=== PATIENT | female | born 1960 | race Caucasian/White ===

== ENCOUNTER 2024-06-17 06:40 | Outpatient (OUT) | payer OTHER, SELFPAY ==
[2024-06-17 07:33] LABS: Basophils Absolute Auto 0.1 10^3/uL (0.0-0.1); Basophils Percent Auto 1.1 % (0.2-2.0); Eosinophils Absolute Auto 0.2 10^3/uL (0.0-0.7); Eosinophils Percent Auto 2.4 % (0.9-7.0); Hematocrit 43.4 % (36.0-48.0); Hemoglobin 14.7 g/dL (12.0-16.0); Immature Granulocytes Abs Auto 0.02 10^3/uL (0.00-0.03); Immature Granulocytes Pct Auto 0.2 % (0.0-0.5); Lymphocytes Absolute Auto 1.9 10^3/uL (1.2-3.8); Lymphocytes Percent Auto 20.4 % (20.5-60.0); Mean Corpuscular HGB Conc 33.9 g/dL (29.9-35.2); Mean Corpuscular Hemoglobin 34.9 pg (26.7-34.0); Mean Corpuscular Volume 103.1 fL (81.0-99.0); Mean Platelet Volume 10.1 fL (9.5-13.5); Monocytes Absolute Auto 0.6 10^3/uL (0.3-0.8); Monocytes Percent Auto 6.8 % (1.7-12.0); Neutrophils Absolute Auto 6.3 10^3/uL (1.4-6.5); Neutrophils Percent Auto 69.1 % (43.0-75.0); Platelet Count 352 10^3/uL (150-450); Red Blood Count 4.21 10^6/uL (4.20-5.40); Red Cell Distribution Width 12.7 % (11.0-15.0); White Blood Count 9.1 10^3/uL (4.0-11.0)
[2024-06-17 09:11] LABS: Alanine Aminotransferase 42 U/L (14-59); Albumin Globulin Ratio 0.9; Albumin Level 3.4 g/dL (3.4-5.0); Alkaline Phosphatase 227 U/L (46-116); Anion Gap 13.9; Aspartate Amino Transferase 29 U/L (15-37); BUN Creatinine Ratio 11.6; Bilirubin Total 0.7 mg/dL (0.2-1.0); Calcium 9.6 mg/dL (8.5-10.1); Carbon Dioxide 28.9 mmol/L (21.0-32.0); Chloride 103 mmol/L (98-107); Chol HDL Ratio 2.1; Cholesterol 214 mg/dL (<=200); Estimated GFR (African America >60 (>=60); Estimated GFR (Non-African Ame >60 (>=60); Globulin 3.7 g/dL; Glucose 103 mg/dL (74-106); HDL Cholesterol 101 mg/dL (40-60); Potassium 3.8 mmol/L (3.5-5.1); Sodium 142 mmol/L (136-145); Total Protein 7.1 g/dL (6.4-8.2); Triglycerides 101 mg/dL (<=150); VLDL CHOLESTEROL 20.2 mg/dL
[2024-06-17 09:25] LABS: Free T4 1.24 ng/dL (0.76-1.46)
[2024-06-17 11:38] LABS: Estimated Average Glucose 100 mg/dL; Glycohemoglobin A1C 5.1 % (4.5-6.2)
== END 2024-06-17 06:41 | disposition home or self-care (01) ==
LOC: LAB 06:52
PROVIDERS: PCP Nurse Practitioner Family; Visit Provider Nurse Practitioner Family
DX: Z00.00 Encounter for general adult medical examination without abnormal findings (principal); R53.83 Other fatigue; E03.9 Hypothyroidism, unspecified; Z12.11 Encounter for screening for malignant neoplasm of colon
CPT/HCPCS: 36415; 80053; 80061; 83036; 84439; 84443; 85025

== ENCOUNTER 2024-06-24 07:55 | Outpatient (REF) | payer OTHER, SELFPAY ==
--- OUTSIDE RECORDS SUMMARY | 2024-06-24 07:59 | XMS_ITS | CCD ---
Author Organization [facility] Care Team Providers Care Delicatessen Goods Stock Clerk Name Role Phone ARGENIS SORENSON Admitting Unavailable ARGENIS SORENSON Attending Unavailable MISC, DOCTOR Primary Care Unavailable ARGENIS SORENSON Consulting Unavailable Problems Active Problems Problem Classification Problem Date Documented Da te Episodic/Chronic Chronic obstructive pulmonary disease and bronchiectasis (1 source) Chronic obstructive pulmonary disease with (acute) exacerbation; Translations: [COPD WITH ACUTE EXACERBATION] Onset: 04-09-2018 Chronic Essential hypertension (1 source) Essential (primary) hypertension; Translations: [ESSENTIAL PRIMARY HYPERTENSION] Onset: 04-09-2018 Chronic Substance-related disorders (1 source) Nicotine dependence, cigarettes, uncomplicated; Translations: [NICOTINE DEPEND CIGARETTES UNCOMP] Onset: 04-09-2018 Chronic Past or Other Problems Problem Classification Problem Date Documented Da te Episodic/Chronic Allergic reactions (1 source) Allergy, unspecified, initial encounter; Translations: [ALLERGY UNSPECIFIED INITIAL ENCNTR] Onset: 04-09-2018 Episodic Other skin disorders (4 sources) Rash and other nonspecific skin eruption; Translations: [RASH OTH NONSPECIFIC SKIN ERUPTION] Onset: 03-14-2018 Episodic Results Test Name Value Interpretation Reference Range Facil ity MM screening mammo BI w/CADo n 05-08-2021 MM screening mammo BI w/CAD [facility] [place] [id number] Mammography Report Signed Patient: Marily Clemons MR#: [id number] : 1960 Acct:[id number] Age/Sex: 60 / F ADM Date: 05/08/21 Loc: [place] Room: Type: [facility] Attending Dr: Shannan Schwartz (Clinic) , [facility] Ordering Provider: Shannan Schwartz DO Date of Service: 05/08/21 MM/MM screening mammo BI w/CAD: SCREEN Copies to: Shannan Efren, DO CLINICAL DATA: Screening for malignancy. BILATERAL SCREENING MAMMOGRAMS - FULL FIELD DIGITAL WITH TOMOSYNTHESIS AND CAD Tomosynthesis craniocaudal and mediolateral oblique views of both breasts were obtained using low- dose digital technique. Comparison is made to prior studies from February 18, 2014 through January 22, 2019. This examination was reviewed with the aid of CAD. There are minor residual scattered fibroglandular densities. There is minor postoperative scarring in the retroareolar region on the right. Benign-appearing nodularity is again seen. There are no new suspicious masses, typically malignant calcifications or architectural distortion. There has been no significant interval change. MM/MM screening mammo BI w/CAD IMPRESSION: NO MAMMOGRAPHIC EVIDENCE OF MALIGNANCY. ROUTINE FOLLOW-UP IS RECOMMENDED IN ONE YEAR. RESULT CODE: 2 Benign Findings(s) DENSITY CODE: 1 (<25% glandular) FOLLOW UP: 1YR The false-negative rate of mammography is approximately 10-percent. Management of a palpable abnormality must be based on clinical grounds. Patient was entered into a reminder system with a target due date for the next mammogram. Impression dictated by: Christina Morales M.D.05/08/2021 1:21 PM Dictation Location: [facility] Transcribed By: [facility] 05/08/21 1321 Dictated By: Christina Morales MD 05/08/21 1317 Signed By: 05/08/21 1321 [facility] Encounters Encounter Date Encounter Type Care Provider Facility Start: 03-14-2018 End: 03-14-2018 Patient encounter procedure ARGENIS SORENSON Facility: Payers Date Payer Category Payer Unknown [id number] 1960 Unknown [id number] Summary Purpose Family History No Family History Records FoundNo Family History Records Found Advance Directives No Advanced Directives Records FoundNo Advanced Directives Records Found Additional Source Comments INFORMATION SOURCE (unrecogn ized section and content) DATE CREATED AUTHOR 02/11/2020 [facility] DATE CREATED AUTHOR '[facility] [place] 12/25/2021 [facility] FOR RECORDS PERTAINING TO PATIENTS WHO ARE OR HAVE BEEN ENROLLED IN A CHEMICAL DEPENDENCY/SUBSTANCEABUSE PROGRAM, SOME INFORMATION MAY BE OMITTED. This clinical summary was aggregated from multiple sources. Caution should be exercised in using it in the provision of clinical care. This summary normalizes information from multiple sources, and as a consequence, information in this document may materially change the coding, format and clinical context of patient data. In addition, data may be omitted in some cases. CLINICAL DECISIONS SHOULD BE BASED ON THE PRIMARY CLINICAL RECORDS. [facility]. provides no warranty or guarantee of the accuracy or completeness of information in this document.
[2024-06-24 09:23] LABS: Internal Control Within Normal Limits; Occult Blood Positive
== END 2024-06-24 07:56 | disposition home or self-care (01) ==
LOC: LAB 07:55
PROVIDERS: PCP Nurse Practitioner Family; Visit Provider Nurse Practitioner Family
DX: Z00.00 Encounter for general adult medical examination without abnormal findings (principal); R53.83 Other fatigue; E03.9 Hypothyroidism, unspecified; Z12.11 Encounter for screening for malignant neoplasm of colon
CPT/HCPCS: G0328

== ENCOUNTER 2025-06-23 09:51 | Outpatient (OUT) | payer MEDICARE, SELFPAY ==
--- OUTSIDE RECORDS SUMMARY | 2023-03-25 11:00 | XMS_ITS | Continuity of Care Document ---
Author Name [facility] Organization [facility] Care Team Providers Care Senior International Tax Manager Name Role Phone [facility] Unavailable Unavailable Problems Combined list of problems from Department of Defense and Veterans Affairs facilities. It does not include entries that were removed or entered in error. Problem Status Onset Date Problem Type Date of Resolution Comments Source Benign essential hypertension Active Condition [facility] Breast neoplasm screening status Active Condition March 03 Entered By: JEVON CONCEPCION Comment: 03/25/11: negJun 2012 Entered By: CHANDU DOVE Comment: mammogram 01/26/13 Bi-rad 1 negativeJul 2020 Entered By: WASHINGTON ALBARRAN Comment: 05/08/21 - BiRads 2 - repeat 1 year [facility] COPD - Chronic Obstructive Pulmonary Disease (SCT 49941596) Active Condition [facility] Hyperlipidemia (SNOMED CT 68469414) Active Condition [facility] Hypothyroid (SNOMED CT 69876856) Active Condition [facility] Nausea and vomiting Active Condition [facility] Osteoporosis (SNOMED CT 76672840) Active Condition [facility] Polyp of colon Active Condition Oct 042021 Entered By: WASHINGTON ALBARRAN Comment: 10/22/2022 - colonoscopy - tubular adenoma [facility] Routine gynecologic examination done Active Condition Apr 22 6 Entered By: WASHINGTON ALBARRAN Comment: april 2016 pap and HPV neg. rec rpt 5 yrs (2020) [facility] Smoker Active Condition [facility] Tobacco use Active Condition [facility] Vertigo Active Condition [facility] Vitamin D Deficiency (SCT 6171641) Active Condition [facility] Medications Combined list of outpatient medications from Department of Defense and Veterans Affairs facilities.Medications provided include 1) outpatient medications from the last 15 months, and 2) patient-reported medications. Medication Details Route Status Patient Instructions Prescription Expires Prescription Number Last Dispense Date Ordering Provider Order Date Order Qty Source ACETAMINOPH EN TAB TAKE BY MOUTH QID PRN ORAL ACTIVE MCCABE, LAMINE Azam 2010 [facility] ALENDRONATE 70MG TAB TAKE ONE TABLET BY MOUTH EVERY 4 WEEKS ORAL ACTIVE MELVA LUU Supriya 2010 [facility] CALCIUM CARBONATE 650MG TAB TAKE ONE TABLET BY MOUTH EVERY DAY ORAL ACTIVE JAXSON DOVE HEVER Nascimento 2012 [facility] Immunizations Combined list of available immunizations from the Department of Defense and Veterans Affairs facilities. Immunization Series Date Given Administered By Site Reaction Lot Number CVX Code Drug Slab Lifting Supervisor Status Comments Source COVID-19 ([facility]zes), MRNA, LNP-S, BIVALENT BOOSTER, PF, 30 MCG/0.3 ML DOSE 2021 MERLIN DODD LEFT DELTO ID [id number] 300 complet ed Booster for Series, [facility] [place], [facility] INFLUENZA, INJECTABLE, QUADRIVALENT, PRESERVATIVE FREE 2021 LAMINE THOMAS LEFT DELTO ID [id number] 150 complet ed [facility] [place] [facility] [place], [facility] COVID-19 ([facility]), MRNA, LNP-S, PF, 30 MCG/0.3 ML DOSE 3 2021 208 complet ed HISTORICA L INFORMATI ON - SOURCE UNSPECIFI ED [facility] PNEUMOCOCCAL CONJUGATE PCV20, POLYSACCHARID E [id number] CONJUGATE, ADJUVANT, PF 2021 216 complet ed [facility] ([facility]), MRNA, LNP-S, PF, 30 MCG/0.3 ML DOSE 3 2020 208 complet ed HISTORICA L INFORMATI ON - SOURCE UNSPECIFI ED, [facility] INFLUENZA, INJECTABLE, QUADRIVALENT, PRESERVATIVE FREE 2020 150 complet ed [facility] COVID-19 ([facility]), MRNA, LNP-S, PF, 30 MCG/0.3 ML DOSE 2 2020 208 complet ed [facility] COVID-19 (PFIZER), MRNA, LNP-S, PF, 30 MCG/0.3 ML DOSE 1 2020 208 complet ed [facility] INFLUENZA, UNSPECIFIED FORMULATION 2019 88 complet ed [facility] ZOSTER RECOMBINANT 2019 187 complet ed [facility] INFLUENZA, INJECTABLE, QUADRIVALENT, PRESERVATIVE FREE 2018 150 complet ed [facility] ZOSTER RECOMBINANT 2018 187 complet ed [facility] INFLUENZA, INJECTABLE, QUADRIVALENT, PRESERVATIVE FREE 2018 150 complet ed [facility] INFLUENZA, INJECTABLE, QUADRIVALENT, PRESERVATIVE FREE 2017 150 complet ed [facility] INFLUENZA, SEASONAL, INJECTABLE, PRESERVATIVE FREE 2015 140 complet ed [facility] INFLUENZA (HISTORICAL) 2014 88 complet ed [facility] PNEUMOCOCCAL POLYSACCHARID E PPV23 2014 33 complet ed [facility] PNEUMOCOCCAL, UNSPECIFIED FORMULATION 2014 109 complet ed [facility] INFLUENZA, SEASONAL, INJECTABLE, PRESERVATIVE FREE 2013 140 complet ed [facility] INFLUENZA, UNSPECIFIED FORMULATION 2013 88 complet ed [facility] DTAP, UNSPECIFIED FORMULATION 2013 107 complet ed [facility] INFLUENZA (HISTORICAL) 2012 88 complet ed [facility] INFLUENZA (HISTORICAL) 2010 88 complet ed [facility] INFLUENZA (HISTORICAL) 2010 88 complet ed PT GOT IT [facility] INFLUENZA, UNSPECIFIED FORMULATION 2010 88 complet ed [facility] Social History Combined list of available smoking, tobacco, and other social history from Department of Defense and Veterans Affairs facilities. Social History Type Response Date Comment Sourc e Tobacco smoking status NHIS VA-TOBACCO USER EVERY DAY 03/25/2023 [facility] History of tobacco use VA-TOBACCO USE 30 YEARS OR MORE 03/25/2023 [facility] History of tobacco use VA-TOBACCO USE WI 30 MIN OF WAKEUP 03/27/2022 [facility] History of tobacco use VA-TOBACCO USE WI 30 MIN OF WAKEUP 04/09/2021 [facility] History of tobacco use VA-TOBACCO USE WI 30 MIN OF WAKEUP 01/03/2021 [facility] History of tobacco use VA-TOBACCO USER EVERY DAY 9 [facility] History of tobacco use VA-TOBACCO USER EVERY DAY 8 [facility] History of tobacco use SMOKING MEDICATIO N INTEREST 01/01/2018 [facility] History of tobacco use CURRENT TOBACCO USER 02/12/2017 [facility] History of tobacco use CURRENT TOBACCO USER 12/01/2015 [facility] History of tobacco use CURRENT TOBACCO USER 09/02/2014 [facility] History of tobacco use CURRENT TOBACCO USER 11/02/2013 [facility] History of tobacco use CURRENT TOBACCO USER 01/15/2013 [facility] History of tobacco use CURRENT TOBACCO USER 10/16/2011 [facility] History of tobacco use CURRENT TOBACCO USER 01/10/2011 [facility]
--- OUTSIDE RECORDS SUMMARY | 2025-06-23 09:55 | XMS_ITS | Encounter Summary ---
Author Organization [facility] Address [address] [place] [address] Care Team Providers Care [place]imerock Tower Loader Name Role Phone Maris Nath MD Unavailable [phone] Encounter Details Date Type Department Care Team (Late st Contact Info) Description 12/21/2024 Abstract [facility] [address] [place] [phone] Garret Tarango DO [address] [place], [place] [id number] Social History Tobacco Use Types Packs/Day Years Used Date Smoking Tobacco: Never Assessed Comments Unknown Sex and Gender Information Value Date Recorded Sex Assigned at Not on file Legal Sex Female 6:51 PM EDT Gender Identity Not on file Sexual Orientation Not on file documented as of this encounter Plan of Treatment Not on file documented as of this encounter Visit Diagnoses Not on filedocumented in this encounter Care Teams [place]imer[place] Tower Loader Relationship Specialty Start Date End Date Maris Nath MD [address] [place] [address] Referring Physician Family Medicine 01/04/25 documented as of this encounter
--- OUTSIDE RECORDS SUMMARY | 2025-06-23 09:55 | XMS_ITS | Clinical Summary ---
Author Organization [facility] Address [address] [place] [address] Care Team Providers Care Electronics Detail Draftsperson Name Role Phone Maris Nath MD Unavailable [phone] Allergies No known active allergies Medications aspirin 81 MG EC tablet 1 (one) time each day at the same time 12/22/2024 Active atorvastatin (Lipitor) 80 MG tablet 12/21/2024 Active budesonide-formo terol (Symbicort) 160-4.5 MCG/ACT inhaler every 12 (twelve) hours Active hydroCHLOROthiaz raghav (HYDRODiuril) 25 MG tablet 12/21/2024 Active levalbuterol (Xopenex) 45 MCG/ACT inhaler every 6 (six) hours 11/30/2024 Active levothyroxine (Synthroid, Levoxyl) 200 MCG tablet 12/21/2024 Active Breztri Aerosphere 160-9-4.8 MCG/ACT aerosol INHALE 2 PUFFS TWICE DAILY FOR 30 DAYS 02/10/2025 Active Active Problems No known active problems Encounters Date Type Department Care Team Description 06/02/2025 10:00 AM EDT Office Visit [facility] [address] [facility] [place] [phone] Garret Tarango DO Left ankle pain, unspecified chronicity (Primary Dx) 06/02/2025 8:00 AM EDT Ancillary Procedure [facility] [address] [facility] [place] [phone] 06/02/2025 Travel 03/31/2025 9:45 AM EDT Office Visit [facility] [address] [place] [phone] Garret Tarango DO Left ankle pain, unspecified chronicity (Primary Dx) 03/31/2025 8:00 AM EDT Ancillary Procedure [facility] [address] [place] [address] 03/31/2025 Travel from Last 3 Months Family History Medical History Relation Name Comments Stroke Father Mental illness Mother Relation Name Status Comments Father Mother Social History Tobacco Use Types Packs/Day Years Used Date Smoking Tobacco: Every Day Cigarettes Smokeless Tobacco: Never Tobacco Cessation:Ready to Q uit: Not Asked; Counseling Given: Not Answered Alcohol Use Standard Drinks/Week Comments Not Currently 0 (1 standard drink = 0.6 oz pur e alcohol) Comments Unknown Sex and Gender Information Value Date Recorded Sex Assigned at Not on file Legal Sex Female 6:51 PM EDT Gender Identity Not on file Sexual Orientation Not on file Last Filed Vital Signs Vital Sign Reading Time Taken Comments Blood Pressure - - Pulse - - Temperature - - Respiratory Rate - - Oxygen Saturation - - Inhaled Oxygen Concentration - - Weight 72.6 kg (160 lb) 06/02/2025 9:50 AM EDT Height 160 cm (5' 3 ) 06/02/2025 9:50 AM EDT Body Mass Index 28.34 06/02/2025 9:50 AM EDT Plan of Treatment Health Maintenance Due Date Last Done Comments CT Colonography 1960 Colonoscopy 1960 Colorectal Cancer Screening 1960 FIT-DNA 1960 FIT 1960 FOBT 1960 Sigmoidoscopy 1960 Mammogram 1998 Influenza Vaccine (#1) 2025 4, 09/01/2023, 09/18/2022, Additional history exists Pneumococcal Vaccine: 65+ Years Completed 03/27/2022, 04/27/2015, 04/27/2015 Procedures Procedure Name Priority Date/Time Associated Diagnosis Comments XR ANKLE 3+ VIEWS LEFT Routine 06/02/2025 7:48 AM EDT Left ankle pain, unspecified chronicity XR ANKLE 3+ VIEWS LEFT Routine 03/31/2025 7:52 AM EDT Left ankle pain, unspecified chronicity from Last 3 Months Results * XR ankle 3+ views left (06/02/2025 7:48 AM EDT) Only the most recent of2 resultswithin the time period is included. Anatomical Region Laterality Modality Lower Extremities, Ankle Left Radiogr aphic Imaging Narrative 06/02/2025 8:32 PM EDT Imaging Result: Three views of the left ankle, AP/lateral/mortise, taken today and saved to the permanent medical record. - X-ray of the left ankle: No change in position and alignment of the fractures. The hardware is all intact. There is interval healing of both the medial malleolus and distal fibula fracture. Slight narrowing at lateral tibiotalar joint with asymmetry to the mortise. The syndesmosis is well aligned. Garret Tarango DO IMG XR PROCEDURES Final Result from Last 3 Months Insurance [address] [place] [address] [employer] Care Teams Electronics Detail Draftsperson Relationship Specialty Start Date End Date Maris Nath MD [facility] [place] [address] Referring Physician Family Medicine 01/04/25
--- OUTSIDE RECORDS SUMMARY | 2025-06-23 10:15 | XMS_ITS | CCD ---
Author Organization [facility] Care Team Providers Care 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 Name Role Phone ARGENIS SORENSON Admitting Unavailable ARGENIS SORENSON Attending Unavailable [facility], DOCTOR Primary Care Unavailable ARGENIS SORENSON Consulting Unavailable Dar Bailey Attending Unavailable Tony Alva Attending Tony Fermin Admitting Unavailkerry e Noel Primary Care Provider MARIS Webber Primary Care Physician Tony Alva Admitting Tony Fermin Attending Maris Webber MD GARRET TARANGO Attending Unavailable GARRET TARANGO Referring Unavailable CARMENCITA, GARRET Davis Referring Unavailable CARMENCITA, GARRET Davis Referring Unavailable CARMENCITA, GARRET Davis Attending Unavailable CARMENCITA, GARRET Davis Referring Unavailable CARMENCITA, GARRET Davis Attending Unavailable CARMENCITA, GARRET Davis Referring Unavailable CARMENCITA, GARRET Davis Attending Unavailable CARMENCITA, GARRET Davis Referring Unavailable CARMENCITA, GARRET Davis Referring Unavailable GARRET TARANGO Attending Unavailable Allergies Allergy Classification Reported Allergen(s) Allergy Type Date of Onset Reaction(s) Facility (4 sources) No Known Medication Allergies; Translations: [No Known Medication Allergies] Propensity to adverse reactions (disorder) [facility] Medications Current Medications Medication Drug Class(es) Dates Sig (Normalized) Sig (Original) Albuterol (Eqv-Proventil HFA) 90 mcg/inh inhalation aerosol (1 source) Start: 5 Albuterol (Eqv-Proventil HFA) 90 mcg/inh inhalation aerosol = 2 inh, Inhalation, q6hr, PRN Wheezing Start Date: 12/21/24 Status: Ordered aspirin 81 mg delayed release oral tablet (9 sources) Platelet Aggregation Inhibitor, Nonsteroidal Anti-inflammator y Drug Start: 5 End: 5 aspirin 81 MG EC tablet 1 (one) time each day at the same time 12/22/2024 Active atorvastatin 80 mg oral tablet (9 sources) HMG-CoA Reductase Inhibitor Start: 5 atorvastatin (Lipitor) 80 MG tablet 12/21/2024 Active 60 actuat budesonide 0.16 mg/actuat / formoterol fumarate 0.0045 mg/actuat metered dose inhaler (8 sources) Corticosteroid, beta2-Adrenergic Agonist budesonide-formotero l (Symbicort) 160-4.5 MCG/ACT inhaler every 12 (twelve) hours Active 120 actuat budesonide 0.16 mg/actuat / formoterol fumarate 0.0048 mg/actuat / glycopyrrolate 0.009 mg/actuat metered dose inhaler (6 sources) Corticosteroid, beta2-Adrenergic Agonist Start: 5 take 2 puff(s) by inhalation twice daily Breztri Aerosphere 160-9-4.8 MCG/ACT aerosol INHALE 2 PUFFS TWICE DAILY FOR 30 DAYS 02/10/2025 Active docusate sodium 100 mg oral capsule (1 source) Start: 5 End: 5 take 1 capsule by mouth twice daily as needed for constipation Colace 100 mg Cap 100 mg = 1 cap(s), Oral, BID, PRN as needed for constipation, X 14 day(s), # 28 cap(s), Refills(s) 0, Pharmacy: [facility]/pharmacy #[id number], 160, cm, 12/21/24 9:39:00 EST, Height/Length Dosing, 77.4, kg, 12/21/24 9:39:00 EST, Weight Dosing Start Date: 12/22/24 Stop Date: 01/05/25 Status: Ordered hydroCHLOROthiazide 25 mg oral tablet (9 sources) Thiazide Diuretic Start: 5 hydroCHLOROthiazide (HYDRODiuril) 25 MG tablet 12/21/2024 Active 200 actuat levalbuterol 0.045 mg/actuat metered dose inhaler (8 sources) beta2-Adrenergic Agonist Start: 5 levalbuterol (Xopenex) 45 MCG/ACT inhaler every 6 (six) hours 11/30/2024 Active levalbuterol CFC free 45 mcg/inh Inh Aer w/adapter (1 source) Start: 5 levalbuterol CFC free 45 mcg/inh Inh Aer w/adapter 2 inh, Inhalation, q6hr Wheezing, INHALE 2 PUFFS BY MOUTH EVERY 6 HOURS NEEDED Start Date: 12/21/24 Status: Ordered oxyCODONE hydrochloride 5 mg oral tablet (1 source) Opioid Agonist Start: End: take 1 tablet by mouth every six hours as needed for pain oxyCODONE 5 mg Tab 5 mg = 1 tab(s), Oral, q6hr, PRN as needed for pain, X 5 day(s), # 20 tab(s), Refills(s) 0, Pharmacy: [facility]/pharmacy #[id number], 160, cm, 12/21/24 9:39:00 EST, Height/Length Dosing, 77.4, kg, 12/21/24 9:39:00 EST, Weight Dosing Start Date: 12/22/24 Stop Date: 12/27/24 Status: Ordered sennosides, fci 8.6 mg oral tablet (1 source) Start: take 1 tablet by mouth once daily at bedtime senna 8.6 mg Tab 8.6 mg = 1 tab(s), Oral, Once a day (at bedtime), # 20 tab(s), Refills(s) 0, Pharmacy: [facility]/pharmacy #[id number], 160, cm, 12/21/24 9:39:00 EST, Height/Length Dosing, 77.4, kg, 12/21/24 9:39:00 EST, Weight Dosing Start Date: 12/22/24 Status: Ordered Completed/Discontinued Medications Medication Drug Class(es) Dates Sig (Normalized) Sig (Original) [id number] 200 actuat albuterol 0.09 mg/actuat metered dose inhaler (4 sources) beta2-Adrenergic Agonist End: 02-28-2025 take 2 puff(s) by inhalation four times daily as needed albuterol HFA 90 mcg/act inhaler INHALE 2 PUFFS NEEDED 4 TIMES DAILY for 25 days 02/28/2025 Discontinued (Therapy completed) levothyroxine sodium 0.2 mg oral tablet (9 sources) l-Thyroxine Start: 12-21-2024 take 1 tablet by mouth once daily in the morning levothyroxine 200 mcg (0.2 mg) Tab 200 mcg = 1 tab(s), Oral, Daily, TAKE 1 TABLET BY MOUTH EVERY DAY IN THE MORNING ON EMPTY STOMACH FOR 90 DAYS Start Date: 12/21/24 Status: Ordered Start: 12-21-2024 levothyroxine (Synthroid, Levoxyl) 200 MCG tablet 12/21/2024 Active Problems Active Problems Problem Classification Problem Date Documented Date Episodic/Chronic Chronic obstructive pulmonary disease and bronchiectasis (1 source) Chronic obstructive pulmonary disease with (acute) exacerbation; Translations: [COPD WITH ACUTE EXACERBATION] Onset: 8 Chronic Disorders of lipid metabolism (1 source) Hypercholesterolemia 12-21-2024 Chronic Essential hypertension (2 sources) Essential (primary) hypertension; Translations: [Hypertensive disorder] Onset: 8 12-21-2024 Chronic Fracture of lower limb (1 source) Closed fracture of lower leg; Translations: [Other fracture of unspecified lower leg, initial encounter for closed fracture] Onset: 5 Episodic Other non-traumatic joint disorders (8 sources) Ankle pain; Translations: [Pain in left ankle and joints of left foot] 01-31-2025 Episodic Residual codes; unclassified (1 source) Tobacco user 12-21-2024 Episodic Substance-related disorders (2 sources) Nicotine dependence, cigarettes, uncomplicated; Translations: [Smoker] Onset: 8 12-21-2024 Chronic Comment on above: Added secondary to d ocumentation in Social History. Thyroid disorders (1 source) Hypothyroidism 12-21-2024 Chronic Past or Other Problems Problem Classification Problem Date Documented Da te Episodic/Chronic Allergic reactions (1 source) Allergy, unspecified, initial encounter; Translations: [ALLERGY UNSPECIFIED INITIAL ENCNTR] Onset: 04-09-2018 Episodic Other skin disorders (4 sources) Rash and other nonspecific skin eruption; Translations: [RASH OTH NONSPECIFIC SKIN ERUPTION] Onset: 03-14-2018 Episodic Results Test Name Value Interpretation Reference Range Facility XR Ankle - left 3 [facility] Result: Three views of the left [...] the mortise. The syndesmosis is well aligned. [facility] Radiology Study observation (narrative) [facility] XR Ankle - left 3 [facility] Result: Three views of the left ankle, AP/lateral/mortise, taken today and saved to the permanent medical record. Increased callus at fibula fracture. Fracture line at medial malleolus still present. Syndesmosis aligned, narrowing at lateral tibiotalar joint [facility] Radiology Study observation (narrative) [facility] XR Ankle - left 3 [facility] Result: Three views of the left ankle, AP/lateral/mortise, taken today and saved to the permanent medical record. Fractures unchanged in position. Hardware intact. Mortise and syndesmosis well aligned. [facility] Radiology Study observation (narrative) [facility] XR Ankle - left 3 [facility] Result: Three views of the left ankle, AP/lateral/mortise, taken today and saved to the permanent medical record. Hardware intact. Mortise and syndesmosis in good alignment. Fractures healing appropriately. [facility] Radiology Study observation (narrative) [facility] EMS Documentationon 12-23-19 EMS Documentation Report Please click on link to see report Normal [facility] Comment on above: Result Comment: Miss ing Attachment - attachment exceeds size limitation [id number] Can be viewed in source system Main OR Intraoperative Recor don 12-23-2024 Main OR Intraoperative Record Main OR Intraoperative Record IntraOp Document Type FT Summary Primary Physician: Garret Tarango DO Finalized Date/Time: 12/23/24 07:38:51 Pt. Name: MARILY CLEMONS/Sex: 1960 Female Med Rec #: [id number] Physician: Nida RODRIGUEZ, Tony Bragg Financial #: [id number] Pt. Type: O Room/Bed: [place] [address] Admit/Disch: 12/21/24 09:32:35 - 12/22/24 17:10:00 Institution: Case Times FT Entry 1 Patient Times In Room 12/21/24 18:31:00 Out Room 12/21/24 20:39:00 Procedure Times Start 12/21/24 18:57:00 Stop 12/21/24 20:35:00 Anesthesia Times Start 12/21/24 18:31:00 Stop 12/21/24 20:39:00 Last Modified By: Reyes Parker 12/21/24 20:45:13 General Comments: 12/23/24 Chart opened to review and send charges LRoth CSFA Case Attendance FT Entry 1 Entry 2 Entry 3 Case Attendee Garret Tarango DO, Jr., DO, Renay Garces CST Role Performed Surgeon - Primary Anesthesiologist of GAS STATION SERVICE ATTENDANT/SA Record Time In 12/21/24 18:38:00 12/21/24 18:31:00 12/21/24 18:31:00 Time Out 12/21/24 20:39:00 12/21/24 20:39:00 12/21/24 20:39:00 Procedure ANKLE FRACTURE ANKLE FRACTURE ANKLE FRACTURE ORIF(Left) ORIF(Left) ORIF(Left) Comments Last Modified By: Reyes Parker Terry T Sweene, Terry T 12/21/24 20:45:15 12/21/24 20:45:15 12/21/24 20:45:15 Entry 4 Entry 5 Entry 6 Case Attendee Reyes Parker Kendall R Kolb, Madelyn K Role Performed Online Advertising Analyst - Primary Scrub - Primary Lokie Engineer Time In 12/21/24 18:31:00 12/21/24 18:31:00 12/21/24 18:39:00 Time Out 12/21/24 20:39:00 12/21/24 20:39:00 12/21/24 20:39:00 Procedure ANKLE FRACTURE ANKLE FRACTURE ANKLE FRACTURE ORIF(Left) ORIF(Left) ORIF(Left) Comments Last Modified By: Reyes Parker Terry T Sweene, Terry T 12/21/24 20:45:15 12/21/24 20:45:15 12/21/24 20:45:15 General Comments: SANDY CRAWLEY - ARTHREX REP HERE FOR CASE. Jovan PARKER RN. ENID MANCIA - ARTHREX REP HERE FOR CASE. Jovan PARKER RN. Perioperative Protocols FT Pre-Care Text: Implements protective measures prior to operative or invasive procedure, confirms identity before the operative or invasive procedure, verifies operative procedure, surgical site, and laterality Entry 1 Procedure(s) ANKLE FRACTURE Patient Identity Birthday, ID Band ORIF(Left) Verified (select at Check, Patient least 2): Participation Consents / H and P Anesthesia Consent, Operative Site Present Verified H&P, Surgery/Procedure Marking Verified Consent Surgical Site Yes Laterality Verified Yes Verified Procedure Verified Yes Correct Patient Yes Position Verified Availability Equipment, Implant, Prep Dry Yes Verified (If Medication, X-ray Applicable) PreOp Antibiotic Yes Time Out Garret Tarango DO, Given Participants Arnie Ortez DO, Clinton Pike CST, Renay Umana, Reyes Parker, Jorge L Giang R, Thalia Martinez Time Out Complete 12/21/24 18:57:00 Outcomes Met? Yes Last Modified By: Reyes Parker 12/21/24 19:16:57 Post-Care Text: The patient is free from signs and symptoms of injury caused by extraneous objects Allergy Information FT Pre-Care Text: Verifies allergies Entry 1 Allergies Reviewed? Yes Allergies Reviewed Self/Patient With Outcomes Met? Yes Last Modified By: Reyes Parker 12/21/24 19:17:05 Post-Care Text: The patient received appropriate medication(s) safely administered during the perioperative period Surgical Procedures FT Entry 1 Procedure Description Procedure ANKLE FRACTURE ORIF Modifiers Left Surgeon Description OPEN REDUCTION INTERNAL FIXATION LEFT ANKLE Primary Procedure Yes Primary Surgeon Garret Tarango DO Start 12/21/24 18:57:00 Stop 12/21/24 20:35:00 Anesthesia Type General Surgical Service Orthopedics Wound Class 1 - Clean Last Modified By: Reyes Parker 12/21/24 20:46:40 General Case Data FT Pre-Care Text: Classifies surgical wound, implements aseptic technique, initiates traffic control Entry 1 Case Information OR OR 4 FT Case Level Level 4 Wound Class 1 - Clean Specialty Orthopedics ASA Class 2 Preop Diagnosis LEFT ANKLE FRACTURE Postop Same As Preop Yes Postop Diagnosis LEFT ANKLE FRACTURE Outcomes Met? Yes Last Modified By: Reyes Parker 12/21/24 19:17:21 Post-Care Text: The patient is free from signs and symptoms of infection Skin Assessment (Pre Procedure) FT Pre-Care Text: Implements protective measures to prevent skin/ tissue injury due to thermal or mechanical sources Evaluates for signs and symptoms of physical injury to skin and tissue Entry 1 Skin Integrity Intact, [place], Warm, & Skin Abnormality Yes Dry Abnormality Location LEFT ANKLE Abnormality Type REDDENED ARE MEDIAL ASPECT OF LEFT ANKLE APPROXIMATELY 1 INCH DIAMETER Outcomes Met? Yes Last Modified By: Reyes Parker 12/21/24 19:18:11 Post-Care Text: The patient is free from signs and symptoms of injury caused by extraneous objects Patient Posit (more content not included)... Normal [facility] 12-22-2024 Urea nitrogen [Mass/Vol] 16 mg/dL Normal 5-21 [facility] Comment on above: Performed By: #### 2 [id number] #### [facility] [address] [place] [address] CBC w/ Auto Diffon Basophils/100 WBC (Bld) 0.2 % Normal 0.0-2.0 [facility] Comment on above: Performed By: #### 2 [id number] #### [facility] [address] [place] [address] Basophils/Leukocytes Auto (Bld) [Pure # fraction] 0.0 E9/L Normal 0.0-0.2 [facility] Comment on above: Performed By: #### 2 [id number] #### [facility] [address] [place] [address] Eosinophils (Bld) [#/Vol] 0.0 E9/L Normal 0.0-0.5 [facility] Comment on above: Performed By: #### 2 [id number] #### [facility] [address] [place] [address] Eosinophils/100 WBC (Bld) 0.0 % Normal 0.0-8.0 [facility] Comment on above: Performed By: #### 2 [id number] #### [facility] [address] [place] [address] Erythrocyte distribution width (RBC) [Ratio] 13.4 % Normal 10.9-14.2 [facility] Comment on above: Performed By: #### 2 [id number] #### [facility] [address] [place] [address] Hematocrit (Bld) [Volume fraction] 37.4 % Normal 34.0-46.0 [facility] Comment on above: Performed By: #### 2 [id number] #### [facility] [address] [place] [address] Hemoglobin (Bld) [Mass/Vol] 12.8 g/dL Normal 12.0-16.0 [facility] Comment on above: Performed By: #### 2 [id number] #### [facility] [address] [place] [address] Lymphocytes (Bld) [#/Vol] 1.3 E9/L Normal 1.0-4.0 [facility] Comment on above: Performed By: #### 2 [id number] #### [facility] [address] [place] [address] Lymphocytes/100 WBC (Bld) 13.1 % Low 14.0-50.0 [facility] Comment on above: Performed By: #### 2 [id number] #### [facility] [address] [place] [address] MCH (RBC) [Entitic mass] 36.3 pg High 27.0-34.0 [facility] Comment on above: Performed By: #### 2 [id number] #### [facility] [address] [place] [address] MCHC (RBC) [Mass/Vol] 34.3 g/dL Normal 31.4-36.0 [facility] Comment on above: Performed By: #### 2 [id number] #### [facility] [address] [place] [address] MCV (RBC) [Entitic vol] 105.8 fL High 80.0-100.0 [facility] Comment on above: Performed By: #### 2 [id number] #### [facility] [address] [place] [address] Monocytes (Bld) [#/Vol] 0.3 E9/L Normal 0.2-1.0 [facility] Comment on above: Performed By: #### 2 [id number] #### [facility] [address] [place] [address] Neutrophils (Bld) [#/Vol] 8.0 E9/L High 2.0-7.5 [facility] Comment on above: Performed By: #### 2 [id number] #### [facility] [address] [place] [address] Neutrophils/100 WBC (Bld) 83.2 % High 36.0-75.0 [facility] Comment on above: Performed By: #### 2 [id number] #### [facility] [address] [place] [address] Platelet 287.0 E9/L Normal 150.0-500.0 [facility] Comment on above: Performed By: #### 2 [id number] #### [facility] [address] [place] [address] Platelet mean volume (Bld) [Entitic vol] 8.5 fL Normal 6.4-10.8 [facility] Comment on above: Performed By: #### 2 [id number] #### [facility] [address] [place] [address] RBC (Bld) [#/Vol] 3.5 E12/L Low 4.3-5.9 [facility] Comment on above: Performed By: #### 2 [id number] #### [facility] [address] [place] [address] WBC corrected for nucl RBC Auto (Bld) [#/Vol] 9.7 E9/L Normal 4.0-11.0 [facility] Comment on above: Performed By: #### 2 [id number] #### [facility] [address] [place] [address] CHEMISTRYOrdered By: Lab ROP User on 12-22-2024 Glucose [Mass/Vol] 117 mg/dL High 55 - 99 mg/dL FT POC Subsection Comment on above: Result Comment: Marco Antonio wagner RN/ POC Device SN [id number] 1 Invalid Interpretation Code [facility] POC Subsection POC Username ALANIS MEZA Invalid Interpretation Code [facility] POC Subsection Sodium [Moles/Vol] [id number] mmol/L Invalid Interpretation Code [facility] POC Subsection Glucose [Mass/Vol] 117 mg/dL High 55 - 99 mg/dL [facility] POC Subsection Comment on above: Result Comment: Marco Antonio wagner RN/ POC Device SN [id number] 1 Invalid Interpretation Code [facility] POC Subsection POC Username ALANIS MEZA Invalid Interpretation Code [facility] POC Subsection Sodium [Moles/Vol] [id number] mmol/L Invalid Interpretation Code [facility] POC Subsection Glucose [Mass/Vol] 122 mg/dL High 55 - 99 mg/dL [facility] POC Subsection Comment on above: Result Comment: Marco Antonio wagnre RN/ POC Device SN [id number] 1 Invalid Interpretation Code [facility] POC Subsection POC Username ALANIS MEZA Invalid Interpretation Code [facility] POC Subsection Sodium [Moles/Vol] [id number] mmol/L Invalid Interpretation Code [facility] POC Subsection CHEMISTRYOrdered By: SYSTEM SYSTEM on 12-22-2024 Anion gap [Moles/Vol] 15 mmol/L Normal 6 - 16 mEq/L R emisol Chem Calcium [Mass/Vol] 8.2 mg/dL Low 8.9 - 11. 1 mg/dL Rem[facility] Chem Chloride [Moles/Vol] 104 mmol/L Normal 101 - 1 11 mmol/L [facility] Chem CO2 [Moles/Vol] 21 mmol/L Normal 21 - 31 mmol/L [facility] Chem Creatinine [Mass/Vol] 1.1 mg/dL Normal 0.5 - 1.3 mg/dL [facility] Chem eGFR 55 mL/min/1.73 m2 Low >=59mL/min /1 .73 m2 [facility] Chem Glucose [Mass/Vol] 114 mg/dL Normal 55 - 199 mg/dL [facility] Magnesium [Mass/Vol] 1.6 mg/dL Normal 1.3 - 2 .4 mg/dL [facility] Phosphate [Mass/Vol] 3.5 mg/dL Normal 1.9 - 4 .6 mg/dL [facility] Potassium [Moles/Vol] 4.6 mmol/L Normal 3.5 - 5.3 mmol/L [facility] Sodium [Moles/Vol] 135 mmol/L Normal 135 - 145 mmol/L [facility] Urea nitrogen [Mass/Vol] 16 mg/dL Normal 5 - 21 mg/dL [facility] Chem COAGULATIONOrdered By: Shirlene Green on 12-22-2024 aPTT Coag (PPP) [Time] 29.5 s Normal 25.1 - 36.5 second(s) [facility] Comment on above: Interpretive Data: P eugenemeter 15 days - 4 weeks 1 - 5 months 6 - 11 months 1 - 5 years 6 - 10 years 11 - 17 years PTT Mean: 35.4 (27.6-45.6) Mean: 33.5 (24.8-40.7) Mean: 32.4 (25.1-40.7) Mean: 31.6 (24.0-39.2) Mean: 31.6 (26.9-38.7) Mean: 31.0 (24.6-38.4) Pediatric Reference ranges were obtained from a study by Jose R Polk et al. prepared from 1437 samples obtained at 7 different centers using the same coagulation reagent and instrumentation as [facility]. Currently there are no coagulation studies available worldwide for children to 14 days, and no normal ranges. Heparin therapeutic range (represented by Anti-Factor Xa activity of 0.2 - 0.4 U/mL) corresponds to PTT of 56.6 - 109.0 sec. INR Coag (PPP) [Relative time] 0.95 {INR} Invalid Interpretation Code [facility] Comment on above: Interpretive Data: I NR results are specifically intended to assess patients stabilized on long-term Anticoagulation therapy suggested INR s Less Intensive Anticoagulation 2.0 3.0 Conventional Range 3.0 4.5 PT Coag (PPP) [Time] 10.6 s Normal 9.4 - 1 2.5 second(s) [facility] Comment on above: Interpretive Data: 1 5 days - 4 weeks 1 - 5 months 6 -11 months 1 5 years 6 10 years 11 -17 years Mean: 11.2 (9.5 12.6) Mean: 11.0 (9.7 12.8) Mean: 11.0 (9.8 13.0) Mean: 11.3 (9.9 13.4) Mean: 11.7 (10.0 14.6) Mean: 11.8 (10.0 - 14.1) Pediatric Reference ranges were obtained from a study by parmjit Downing al. prepared from 1437 samples obtained at 7 different centers using the same coagulation reagent and instrumentation as [facility]. Currently there are no coagulation studies available worldwide for children to 14 days, and no normal ranges. Calciumon 12-22-2024 Calcium [Mass/Vol] 8.2 mg/dL Low 8.9-11.1 [facility] Comment on above: Performed By: #### 2 [id number] #### [facility] [address] [place] [address] Capillary Glucose POCon 12-04 Glucose [Mass/Vol] 117 mg/dL High 55-99 [facility] Comment on above: Result Comment: Marco Antonio TEE Performed By: #### 2 [id number] #### [facility] [address] [place] [address] Glucose [Mass/Vol] 117 mg/dL High 55-99 [facility] Comment on above: Result Comment: Marco Antonio TEE Performed By: #### 2 [id number] #### [facility] [address] [place] [address] Glucose [Mass/Vol] 122 mg/dL High 55-99 [facility] Comment on above: Result Comment: Marco Antonio TEE Performed By: #### 2 [id number] #### [facility] [address] [place] [address] Creatinineon 12-22-2024 Creatinine [Mass/Vol] 1.1 mg/dL Normal 0.5-1.3 [facility] Comment on above: Performed By: #### 2 [id number] #### [facility] [address] [place] [address] Discharge Note-Nursingon Discharge Note-Nursing Discharge Note-Nursing MARILY CLEMONS :1960 Visit Date:12/21/2024 Inpatient Discharge Instructions Your Care Team Admitting Physician - Nida RODRIGUEZ, Tony Bragg Reason for Your Visit I fell on ice and I broke my foot Your Diagnosis Fracture dislocation of ankle Ankle injury - Major Ankle pain-swelling Fall Tests Performed CT Lower Extremity w/o Contrast Left XR Ankle 2 Views Left XR Ankle 3+ Views Left XR Chest Single View This Is Your Medications List albuterol (Albuterol (Eqv-Proventil HFA) 90 mcg/inh inhalation aerosol) aspirin (aspirin 81 mg Oral EC Tab) atorvastatin (atorvastatin 80 mg Tab) docusate (Colace 100 mg Cap) hydrochlorothiazide (hydrochlorothiazide 25 mg Tab) levalbuterol (levalbuterol CFC free 45 mcg/inh Inh Aer w/adapter) levothyroxine (levothyroxine 200 mcg (0.2 mg) Tab) oxycodone (oxyCODONE 5 mg Tab) senna (senna 8.6 mg Tab) Procedure History ORIF - Open reduction of fracture of ankle with internal fixation (12/22/2024). Discharge Vitals Temperature (Axillary) 36.6 ???C Heart Rate (Monitored) 85 Respiratory Rate 18 Blood Pressure 138/79 Height 160.02 cm Weight 80.8 kg BMI 30.23 What to do next Instructions From Your Doctor Event Name Event Result Pending Diagnostic Test Results None Discharge Instructions Nonweightbearing left lower extremity. Follow-up with orthopedics as discussed. New Follow Up Appointments after Discharge Follow Up with Garret Tarango When: 01/04/2025 11:00 AM EST Where: [address] [place] [address]- Business (1) Follow Up with MARIS PUGH When: 12/29/2024 11:00 AM EST Where: [address] [place] [address]- [phone] Business (1) Medications What How Much When Instructions Next Dose New aspirin (aspirin 81 mg Oral EC Tab) 1 Tablets By Mouth Every day Duration: 6 Weeks Pickup at [facility]/pharmacy #[id number] 12/23 @9am New docusate (Colace 100 mg Cap) 1 Capsules By Mouth 2 times a day as needed for as needed for constipation Duration: 14 Days Pickup at [facility]/pharmacy #[id number] 9pm New oxycodone (oxyCODONE 5 mg Tab) 1 Tablets By Mouth Every 6 hours as needed for as needed for pain Duration: 5 Days Pickup at [facility]/pharmacy #[id number] Take as needed every 6 hours for pain. New senna (senna 8.6 mg Tab) 1 Tablets By Mouth Once a day (at bedtime) [facility] [id number] 9pm Unchanged albuterol (Albuterol (Eqv-Proventil HFA) 90 mcg/ inh inhalation aerosol) 2 Inhalation Inhalation Every 6 hours as needed for Wheezing Take as needed every 6 hours for wheezing Unchanged atorvastatin (atorvastatin 80 mg Tab) 1 Tablets By Mouth Every day 12/23 @9am Unchanged hydrochlorothiazide (hydrochlorothiazide 25 mg Tab) 1 Tablets By Mouth Every day @9am Unchanged levalbuterol (levalbuterol CFC free 45 mcg/ inh Inh Aer w/ adapter) 2 Inhalation Inhalation Every 6 hours as needed for Wheezing INHALE 2 PUFFS BY MOUTH EVERY 6 HOURS NEEDED Take every 6 hours for wheezing Unchanged levothyroxine (levothyroxine 200 mcg (0.2 mg) Tab) 1 Tablets By Mouth Every day TAKE 1 TABLET BY MOUTH EVERY DAY IN THE MORNING ON EMPTY STOMACH FOR 90 DAYS 12/23 @9am [id number] [address], [place] [id number] [phone] Test Results CBC BMP WBC: 9.7 E9/L (12/22/24 05:58:00) Glucose Lvl: 106 mg/dL (12/21/24 11:54:00) RBC: 3.5 E12/L Low (12/22/24 05:58:00) BUN: 16 mg/dL (12/22/24 05:58:00) HGB: 12.8 gm/dL (12/22/24 05:58:00) Creatinine: 1.1 mg/dL (12/22/24 05:58:00) Hct: 37.4 % (12/22/24 05:58:00) BUN/Creat Ratio: 11 (12/21/24 11:54:00) MCV: 105.8 fL High (12/22/24 05:58:00) Sodium Lvl: 135 mmol/L (12/22/24 05:58:00) MCH: 36.3 pg High (12/22/24 05:58:00) Potassium Lvl: 4.6 mmol/L (12/22/24 05:58:00) MCHC: 34.3 gm/dL (12/22/24 05:58:00) Chloride: 104 mmol/L (12/22/24 05:58:00) RDW: 13.4 % (12/22/24 05:58:00) CO2: 21 mmol/L (12/22/24 05:58:00) Platelet: 287 E9/L (12/22/24 05:58:00) AGAP: 15 mEq/L (12/22/24 05:58:00) MPV: 8.5 fL (12/22/24 05:58:00) Calcium Lvl: 8.2 mg/dL Low (12/22/24 05:58:00) Allergies No Known Medication Allergies Problems Ongoing - Any problem that you are currently receiving treatment for. Smoker Devices Implanted/Removed This Visit Notice: You have devices implanted this visit that may not be MRI compatible. Implanted ANKLE FRACTURE ORIF Ankle L 2.7 MM LOCKING SCREWS 12/22/2024 2.7 MM LOCKING SCREWS 12/22/2024 4.0 MM CANNULATED LONG THREAD SCREWS (2), 12/22/2024 FIBULOCK NAIL 12/22/2024 SYNDESMOSIS TIGHTROPE XP IMPLANT STAINLESS STEEL 12/22/2024 Education Materials [place], [place] [facility] DISCHARGE INSTRUCTIONS: ANKLE FRACTURE POSTOPERATIVE ACTIVITY: Rest ??? you should continue to rest the ankle for at least the next five to seven days to promote healing and decrease the possibility of swelling. Crutches (more content not included)... Normal [facility] CBC W/ AUTO DIFFon 12-04 EOSINOPHILS/100 LEUKOCYTES:NFR:PT:BLD :QN:AUTOMATED COUNT 0 % 0.0 - 8.0 % [facility] EOSINOPHILS:NCNC:PT:B LD:QN: 0 [facility] BASOPHILS/LEUKOCYTES: NFR.DF:PT:BLD:QN:AUTO MATED COUNT 0 [facility] ERYTHROCYTE MEAN CORPUSCULAR HEMOGLOBIN CONCENTRATION:MCNC:PT :RBC:QN 34.3 [facility] ERYTHROCYTE MEAN CORPUSCULAR HEMOGLOBIN:ENTMASS:PT :RBC:QN 36.3 pg High 27.0 - 34.0 pg [facility] ERYTHROCYTE MEAN CORPUSCULAR VOLUME:ENTVOL:PT:RBC: QN:AUTOMATED COUNT 105.8 fL High 80.0 - 100.0 fL [facility] ERYTHROCYTES:NCNC:PT: BLD:QN:AUTOMATED COUNT 3.5 Low [facility] HEMOGLOBIN:MCNC:PT:BL D:QN: 12.8 [facility] LEUKOCYTES 9.7 [facility] MONOCYTES:NCNC:PT:BLD :QN:AUTOMATED COUNT 0.3 [facility] NEUTROPHILS:NCNC:PT:B LD:QN:AUTOMATED COUNT 8 High [facility] Interpretation and review of laboratory results Abnormal [facility] LYMPHOCYTES:NCNC:PT:B LD:QN: 1.3 [facility] Platelets (Bld) [#/Vol] 287 10*3/uL [facility] Original Ordering Provider: [facility] 12-22-2024 Glucose [Mass/Vol] 114 mg/dL Normal 55-199 [facility] Comment on above: Performed By: #### 2 [id number] #### [facility] [address] [place] [address] HEMATOLOGYOrdered By: SYSTEM SYSTEM on 12-22-2024 Basophils/100 WBC (Bld) 0.2 % Normal 0.0 - 2.0 % [facility] Basophils/Leukocytes Auto (Bld) [Pure # fraction] 0.0 E9/L Normal 0.0 - 0.2 E9/L [facility] Eosinophils (Bld) [#/Vol] 0.0 E9/L Normal 0.0 - 0.5 E9/L [facility] Eosinophils/100 WBC (Bld) 0.0 % Normal 0.0 - 8.0 % [facility] Erythrocyte distribution width (RBC) [Ratio] 13.4 % Normal 10.9 - 14.2 % [facility] Hematocrit (Bld) [Volume fraction] 37.4 % Normal 34.0 - 46.0 % [facility] Hemoglobin (Bld) [Mass/Vol] 12.8 g/dL Normal 12.0 - 16.0 gm/dL [facility] Lymphocytes (Bld) [#/Vol] 1.3 E9/L Normal 1.0 - 4.0 E9/L [facility] Lymphocytes/100 WBC (Bld) 13.1 % Low 14.0 - 50.0 % [facility] MCH (RBC) [Entitic mass] 36.3 pg High 27.0 - 34.0 pg [facility] MCHC (RBC) [Mass/Vol] 34.3 g/dL Normal 31.4 - 36.0 gm/dL [facility] MCV (RBC) [Entitic vol] 105.8 fL High 80.0 - 100.0 fL [facility] Monocytes (Bld) [#/Vol] 0.3 E9/L Normal 0.2 - 1.0 E9/L [facility] Monocytes/100 WBC (Bld) 3.5 % Low 4.0 - 14.0 % [facility] Neutrophils (Bld) [#/Vol] 8.0 E9/L High 2.0 - 7.5 E9/L [facility] Neutrophils/100 WBC (Bld) 83.2 % High 36.0 - 75.0 % [facility] Platelet 287.0 E9/L Normal 150.0 - 500.0 E9/L [facility] Platelet mean volume (Bld) [Entitic vol] 8.5 fL Normal 6.4 - 10.8 fL [facility] RBC (Bld) [#/Vol] 3.5 E12/L Low 4.3 - 5.9 E12/L [facility] WBC corrected for nucl RBC Auto (Bld) [#/Vol] 9.7 E9/L Normal 4.0 - 11.0 E9/L [facility] Inpatient Clinical Summaryon 12-22-2024 Inpatient Clinical Summary Inpatient Clinical Summary [address] [address] Clinical Summary Person Information: Name: MARILY CLEMONS Age: 64 Years : 1960 Sex: Female PCP: MARIS PUGH CNP Marital Status: Phone: [phone] Race: White Ethnicity: Non- or Language: Polish Visit Id: Visit Reason: Ankle injury - Major; Ankle pain-swelling; Fall; fall/ ankle deformity Speciality: Acuity: Enc Type: Observation Med Service: Medical Arrival: 12/21/2024 09:32:35 Discharge: Dispo Type: Address: [address] [place] [id number] Provider Notes: Diagnosis: 1:Fracture dislocation of ankle Problems Active Smoker Smoking Status: Current Every Day Smoker Functional Status: Sensory Deficits: History of Falls: Immediately prior to hospitalization Mobility Assistance Prior to Admission: Independent ADLs: Minimal assistance Current Level of Assistance for Self-Care/Mobility: Cognitive Status: Oriented x 3 Allergies No Known Medication Allergies Measurements: Height: 160.02 cm Weight: 80.8 kg Blood Pressure: 151 mmHg / 90 mmHg BMI: 30.23 kg/m2 Procedures ORIF - Open reduction of fracture of ankle with internal fixation (12/22/2024) Immunizations No Immunizations Documented This Visit Final Med List: albuterol (Albuterol (Eqv-Proventil HFA) 90 mcg/inh inhalation aerosol) 2 Inhalation Inhalation every 6 hours as needed Wheezing. aspirin (aspirin 81 mg Oral EC Tab) 1 Tablets By Mouth every day for 6 Weeks. Refills: 0. atorvastatin (atorvastatin 80 mg Tab) 1 Tablets By Mouth every day. docusate (Colace 100 mg Cap) 1 Capsules By Mouth 2 times a day as needed as needed for constipation for 14 Days. Refills: 0. hydrochlorothiazide (hydrochlorothiazide 25 mg Tab) 1 Tablets By Mouth every day. levalbuterol (levalbuterol CFC free 45 mcg/inh Inh Aer w/adapter) 2 Inhalation Inhalation every 6 hours as needed Wheezing. INHALE 2 PUFFS BY MOUTH EVERY 6 HOURS NEEDED. levothyroxine (levothyroxine 200 mcg (0.2 mg) Tab) 1 Tablets By Mouth every day. TAKE 1 TABLET BY MOUTH EVERY DAY IN THE MORNING ON EMPTY STOMACH FOR 90 DAYS. oxycodone (oxyCODONE 5 mg Tab) 1 Tablets By Mouth every 6 hours as needed as needed for pain for 5 Days. Refills: 0. senna (senna 8.6 mg Tab) 1 Tablets By Mouth once a day (at bedtime). Refills: 0. Care Team Members: Attending Physician: Tony Alva MD Consulting Physician: Referring Physician: Follow up: With: Address: When: MARIS PUGH [address] [place] [phone] Business (1) 12/29/2024 11:00 AM With: Address: When: [place] [address] Business (1) 01/04/2025 11:00 AM Patient Education Information: Holman - Ankle Fracture Post Op (Custom) Normal [facility] Inpatient Patient Summaryon 12-22-2024 Inpatient Patient Summary Inpatient Patient Summary [address] [id number] Patient Discharge Instructions PERSON INFORMATION Name: MARILY CLEMONS Date of : 1960 Current Date: 12/22/2024 15:57:03 PHYSICIANS Admitting Physician: Nida RODRIGUEZ, Tony Bragg Primary Care Physician: MARIS PUGH CNP PCP Phone Number: [phone] Comment: Discharge Diagnosis: 1:Fracture dislocation of ankle Condition at Discharge: Improved MARILY CLEMONS has been given the following list of follow-up instructions, prescriptions, and patient education materials: PATIENT FOLLOW-UP INFORMATION Diet: Discharge Activity: Discharge Restrictions: Wound Care Instructions: Remove Your Dressing In Days Call Your Doctor For: IF UNABLE TO CONTACT YOUR PHYSICIAN AND YOU FEEL IT IS AN EMERGENCY, GO TO THE NEAREST EMERGENCY ROOM OR CALL 911 Home Treatment: Devices/Equipment: None Special Services: Additional Instructions: Nonweightbearing left lower extremity. Follow-up with orthopedics as discussed. Primary Care Physician to provide the following pending test results: None Follow up: With: Address: When: MARIS PUGH [address] [place] [phone] Business (1) 12/29/2024 11:00 AM With: Address: When: [place] [address] Business (1) 01/04/2025 11:00 AM In the event that this physician does not participate in your insurance network, please consult with your insurance company to find a nearby participating provider. Comment: JANKI Guerra CHRISTINA J, have received the attached patient education materials/instructions and have verbalized understanding: Patient Signature Date Clinican/Nurse Signature ___ Date HERE ARE THE MEDICATION CHANGES THAT OCCURRED DURING YOUR HOSPITAL STAY New Medications [id number] [address] [facility] [place] [id number], [phone] aspirin (aspirin 81 mg Oral EC Tab) 1 Tablets By Mouth every day for 6 Weeks. Refills: 0. Last Dose: ___Next Dose: ___ docusate (Colace 100 mg Cap) 1 Capsules By Mouth 2 times a day as needed as needed for constipation for 14 Days. Refills: 0. Last Dose: ___Next Dose: ___ oxycodone (oxyCODONE 5 mg Tab) 1 Tablets By Mouth every 6 hours as needed as needed for pain for 5 Days. Refills: 0. Last Dose: ___Next Dose: ___ senna (senna 8.6 mg Tab) 1 Tablets By Mouth once a day (at bedtime). Refills: 0. Last Dose: ___Next Dose: ___ Medications to Continue with No Changes Other Medications albuterol (Albuterol (Eqv-Proventil HFA) 90 mcg/inh inhalation aerosol) 2 Inhalation Inhalation every 6 hours as needed Wheezing. Last Dose: ___Next Dose: ___ atorvastatin (atorvastatin 80 mg Tab) 1 Tablets By Mouth every day. Last Dose: ___Next Dose: ___ hydrochlorothiazide (hydrochlorothiazide 25 mg Tab) 1 Tablets By Mouth every day. Last Dose: ___Next Dose: ___ levalbuterol (levalbuterol CFC free 45 mcg/inh Inh Aer w/adapter) 2 Inhalation Inhalation every 6 hours as needed Wheezing. INHALE 2 PUFFS BY MOUTH EVERY 6 HOURS NEEDED. Last Dose: ___Next Dose: ___ levothyroxine (levothyroxine 200 mcg (0.2 mg) Tab) 1 Tablets By Mouth every day. TAKE 1 TABLET BY MOUTH EVERY DAY IN THE MORNING ON EMPTY STOMACH FOR 90 DAYS. Last Dose: ___Next Dose: ___ Comment: MEDICATION LIST PROVIDED FOR YOU IS A LIST OF YOUR CURRENT MEDICATIONS. PLEASE CARRY THIS WITH YOU AT ALL TIMES. albuterol (Albuterol (Eqv-Proventil HFA) 90 mcg/inh inhalation aerosol) 2 Inhalation Inhalation every 6 hours as needed Wheezing. aspirin (aspirin 81 mg Oral EC Tab) 1 Tablets By Mouth every day for 6 Weeks. Refills: 0. atorvastatin (atorvastatin 80 mg Tab) 1 Tablets By Mouth every day. docusate (Colace 100 mg Cap) 1 Capsules By Mouth 2 times a day as needed as needed for constipation for 14 Days. Refills: 0. hydrochlorothiazide (hydrochlorothiazide 25 mg Tab) 1 Tablets By Mouth every day. levalbuterol (levalbuterol CFC free 45 mcg/inh Inh Aer w/adapter) 2 Inhalation Inhalation every 6 hours as needed Wheezing. INHALE 2 PUFFS BY MOUTH EVERY 6 HOURS NEEDED. levothyroxine (levothyroxine 200 mcg (0.2 mg) Tab) 1 Tablets By Mouth every day. TAKE 1 TABLET BY MOUTH EVERY DAY IN THE MORNING ON EMPTY STOMACH FOR 90 DAYS. oxycodone (oxyCODONE 5 mg Tab) 1 Tablets By Mouth every 6 hours as needed as needed for pain for 5 Days. Refills: 0. senna (senna 8.6 mg Tab) 1 Tablets By Mouth once a day (at bedtime). Refills: 0. Pharmacy Information: Comme (more content not included)... [facility] Interdisciplinary Note - John e Manageron 12-22-2024 Interdisciplinary Note - Mine Exploration Engineer Interdisciplinary Note - Mine Exploration Engineer CRM to room 315 Patient is awake, alert and oriented Patient is from with her spouse. [place] ride [place]. Patient verified her PCP, DME and insurance. Patient came in with Fall and ankle fx. She had OR on 12/21. She is assigned to Trauma team. She needs to work with therapy again for stairs. She has recommendations for FWW, BSC and SC. She has SC at home. CRM sent other DME needs order to [facility]. Patient declines any needs for care. Patient was provided CRM contact , white board updated. CRM following [facility] received DME order still awaiting approval Per PT they cleared her for DC FWW was delivered to room She does not want to self pay for BSC [facility] Comment on above: Result Comment: Elec tronically Signed By: Virginie Klein\.br\Date and Time Signed: 12/22/24 15:13 EST Interdisciplinary Note - Mauro n 12-22-2024 Interdisciplinary Note - OT Interdisciplinary Note - OT OT [facility] six clicks score 21/24 = NO further inpatient OT needs. Patient is Ind Mod Ind/S w/ basic adls and transfers after set up, with FWW. Recommend bsc and shower chair for home use for fall prevention and energy conservation. Pt verbalizes an understanding. DC inpatient Ot services. Normal [facility] Interdisciplinary Note - OT Interdisciplinary Note - OT OT [facility] six clicks score 24 = SNF. Patient is Dep w/ bathing/dressing/toile ting at this time and requires mod A w/ feeding/grooming. Pt is confused, has difficulty staying alert, has problems following commands, and is weak. INpatient OT services to follow daily to progress as medical status improves. Normal [facility] Comment on above: Other Comment: wrong chart Lyteson 12-22-2024 Anion gap [Moles/Vol] 15 mmol/L Normal 6-16 [facility] Comment on above: Performed By: #### 2 [id number] #### [facility] [address] [place] [address] Chloride [Moles/Vol] 104 mmol/L Normal 101-111 [facility] Comment on above: Performed By: #### 2 [id number] #### [facility] [address] [place] [address] CO2 [Moles/Vol] 21 mmol/L Normal 21-31 [facility] Comment on above: Performed By: #### 2 [id number] #### [facility] [address] [place] [address] Potassium [Moles/Vol] 4.6 mmol/L Normal 3.5-5.3 [facility] Comment on above: Performed By: #### 2 [id number] #### [facility] [address] [place] [address] Sodium [Moles/Vol] 135 mmol/L Normal 135-145 [facility] Comment on above: Performed By: #### 2 [id number] #### [facility] [address] [place] [address] Magnesiumon 12-22-2024 Magnesium [Mass/Vol] 1.6 mg/dL Normal 1.3-2.4 [facility] Comment on above: Performed By: #### 2 [id number] #### [facility] [address] [place] [address] PT & PTTon 12-22-2024 aPTT Coag (PPP) [Time] 29.5 second(s) Normal 25.1-36.5 [facility] Comment on above: Result Comment: Para meter 15 days - 4 weeks 1 - 5 months 6 - 11 months 1 - 5 years 6 - 10 years 11 - 17 years PTT Mean: 35.4 (27.6-45.6) Mean: 33.5 (24.8-40.7) Mean: 32.4 (25.1-40.7) Mean: 31.6 (24.0-39.2) Mean: 31.6 (26.9-38.7) Mean: 31.0 (24.6-38.4) Pediatric Reference ranges were obtained from a study by parmjit Downing al. prepared from 1437 samples obtained at 7 different centers using the same coagulation reagent and instrumentation as [facility]. Currently there are no coagulation studies available worldwide for children to 14 days, and no normal ranges. Heparin therapeutic range (represented by Anti-Factor Xa activity of 0.2 - 0.4 U/mL) corresponds to PTT of 56.6 - 109.0 sec. Performed By: #### 1 [id number] #### [facility] [address] [place] [address] INR Coag (PPP) [Relative time] 0.95 {INR} Invalid Interpretation Code [facility] Comment on above: Result Comment: INR results are specifically intended to assess patients stabilized on long-term Anticoagulation therapy suggested INR???s ???Less Intensive Anticoagulation??? 2.0 ??? 3.0 Conventional Range 3.0 ??? 4.5 Performed By: #### 1 [id number] #### [facility] [address] [place] [address] PT Coag (PPP) [Time] 10.6 second(s) Normal 9.4-12.5 [facility] Comment on above: Result Comment: 15 d ays - 4 weeks 1 - 5 months 6 -11 months 1 ??? 5 years 6 ??? 10 years 11 -17 years Mean: 11.2 (9.5 ??? 12.6) Mean: 11.0 (9.7 ??? 12.8) Mean: 11.0 (9.8 ??? 13.0) Mean: 11.3 (9.9 ??? 13.4) Mean: 11.7 (10.0 ??? 14.6) Mean: 11.8 (10.0 - 14.1) Pediatric Reference ranges were obtained from a study by parmjit Downing al. prepared from 1437 samples obtained at 7 different centers using the same coagulation reagent and instrumentation as [facility]. Currently there are no coagulation studies available worldwide for children to 14 days, and no normal ranges. Performed By: #### 1 [id number] #### [facility] [address] [place] [address] Phosphoruson 12-22-2024 Phosphate [Mass/Vol] 3.5 mg/dL Normal 1.9-4.6 [facility] Comment on above: Performed By: #### 2 [id number] #### [facility] [address] [place] [address] XR ANKLE 2 VIEWS LEFTon 12-04 Exam Date/Time: 12/21/2024 21:00 EST Reason for Exam: left ankle fx Report XR Ankle 2 Views Left : 12/21/2024 7:00 PM CLINICAL HISTORY: left ankle fx. COMPARISON: None available. Intraoperative fluoroscopy was provided for Dr. Tarango's procedure. Air kerma mGy: 6.2; fluoroscopy time: 176.3 No diagnostic images were obtained. Please see Dr. Tarango'ozzy's surgical notes for complete details. Ordering Provider: Garret Tarango FINAL REPORT Dictated: 12/22/2024 9:38 am Jose David Chinchilla DO Signed (Electronic Signature): 12/22/2024 9:38 am Signed by: Jose David Chinchilla DO Transcribed by: JAKE Technologist: ANDI [facility] Radiology, Radiologist, - 12/22/2024 Exam Date/Time: 12/21/2024 21:00 EST Reason for Exam: left ankle fx Report XR Ankle 2 Views Left : 12/21/2024 7:00 PM CLINICAL HISTORY: left ankle fx. COMPARISON: None available. Intraoperative fluoroscopy was provided for Dr. Tarango's procedure. Air kerma mGy: 6.2; fluoroscopy time: 176.3 No diagnostic images were obtained. Please see Dr. Tarango's's surgical notes for complete details. Ordering Provider: Garret Tarango FINAL REPORT Dictated: 12/22/2024 9:38 am Jose David Chinchilla DO Signed (Electronic Signature): 12/22/2024 9:38 am Signed by: Jose David Chinchilla DO Transcribed by: JAKE Technologist: ANDI [facility] [employer] XR ANKLE 2 VIEWS LEFTOrdered By: Radiologist Radiology on 12-22-2024 [employer] Work Phone: XR Ankle 2 Views Lefton 12-04 XR Ankle 2 Views Left Exam Date/Time: 12/21/2024 21:00 EST Reason for Exam: left ankle fx Report XR Ankle 2 Views Left : 12/21/2024 7:00 PM CLINICAL HISTORY: left ankle fx. COMPARISON: None available. Intraoperative fluoroscopy was provided for Dr. Tarango's procedure. Air kerma mGy: 6.2; fluoroscopy time: 176.3 No diagnostic images were obtained. Please see Dr. Tarango'ozzy's surgical notes for complete details. Ordering Provider: Garret Tarango FINAL REPORT Dictated: 12/22/2024 9:38 am Jose David Chinchilla DO Signed (Electronic Signature): 12/22/2024 9:38 am Signed by: Jose David Chinchilla DO Transcribed by: JAKE Technologist: MKK Normal [facility] eGFRon 12-22-2024 eGFR 55 mL/min/1.73 m2 Low >=59 [facility] Comment on above: Performed By: #### 1 [id number] #### [facility] [address] [place] [address] CBC w/ Auto Diffon 5 Basophils/100 WBC (Bld) 0.5 % Normal 0.0-2.0 [facility] Comment on above: Performed By: #### 2 [id number] #### [facility] [address] [place] [address] Basophils/Leukocytes Auto (Bld) [Pure # fraction] 0.1 E9/L Normal 0.0-0.2 [facility] Comment on above: Performed By: #### 2 [id number] #### [facility] [address] [place] [address] Eosinophils (Bld) [#/Vol] 0.2 E9/L Normal 0.0-0.5 [facility] Comment on above: Performed By: #### 2 [id number] #### [facility] [address] [place] [address] Eosinophils/100 WBC (Bld) 1.3 % Normal 0.0-8.0 [facility] Comment on above: Performed By: #### 2 [id number] #### [facility] [address] [place] [address] Erythrocyte distribution width (RBC) [Ratio] 13.2 % Normal 10.9-14.2 [facility] Comment on above: Performed By: #### 2 [id number] #### [facility] [address] [place] [address] Hematocrit (Bld) [Volume fraction] 42.5 % Normal 34.0-46.0 [facility] Comment on above: Performed By: #### 2 [id number] #### [facility] [address] [place] [address] Hemoglobin (Bld) [Mass/Vol] 15.2 g/dL Normal 12.0-16.0 [facility] Comment on above: Performed By: #### 2 [id number] #### [facility] [address] [place] [address] Lymphocytes (Bld) [#/Vol] 1.8 E9/L Normal 1.0-4.0 [facility] Comment on above: Performed By: #### 2 [id number] #### [facility] [address] [place] [address] Lymphocytes/100 WBC (Bld) 15.0 % Normal 14.0-50.0 [facility] Comment on above: Performed By: #### 2 [id number] #### [facility] [address] [place] [address] MCH (RBC) [Entitic mass] 37.2 pg High 27.0-34.0 [facility] Comment on above: Performed By: #### 2 [id number] #### [facility] [address] [place] [address] MCHC (RBC) [Mass/Vol] 35.7 g/dL Normal 31.4-36.0 [facility] Comment on above: Performed By: #### 2 [id number] #### [facility] [address] [place] [address] MCV (RBC) [Entitic vol] 104.1 fL High 80.0-100.0 [facility] Comment on above: Performed By: #### 2 [id number] #### [facility] [address] [place] [address] Monocytes (Bld) [#/Vol] 0.7 E9/L Normal 0.2-1.0 [facility] Comment on above: Performed By: #### 2 [id number] #### [facility] [address] [place] [address] Neutrophils (Bld) [#/Vol] 9.6 E9/L High 2.0-7.5 [facility] Comment on above: Performed By: #### 2 [id number] #### [facility] [address] [place] [address] Neutrophils/100 WBC (Bld) 77.8 % High 36.0-75.0 [facility] Comment on above: Performed By: #### 2 [id number] #### [facility] [address] [place] [address] Platelet 307.0 E9/L Normal 150.0-500.0 [facility] Comment on above: Performed By: #### 2 [id number] #### [facility] [address] [place] [address] Platelet mean volume (Bld) [Entitic vol] 8.3 fL Normal 6.4-10.8 [facility] Comment on above: Performed By: #### 2 [id number] #### [facility] [address] [place] [address] RBC (Bld) [#/Vol] 4.1 E12/L Low 4.3-5.9 [facility] Comment on above: Performed By: #### 2 [id number] #### [facility] [address] [place] [address] WBC corrected for nucl RBC Auto (Bld) [#/Vol] 12.3 E9/L High 4.0-11.0 [facility] Comment on above: Performed By: #### 2 [id number] #### [facility] [address] [place] [address] CHEMISTRYOrdered By: SYSTEM SYSTEM on 12-21-2024 Albumin [Mass/Vol] 4.2 g/dL Normal 3.3 - 5.0 gm/dL [facility] Chem Albumin/Globulin [Mass ratio] 1.3 {ratio} Normal 1.1 - 2.2 [facility] ALP [Catalytic activity/Vol] 169 [iU]/d High 21 - 98 Int._Unit/L [facility] Chem ALT No additional P-5'-P [Catalytic activity/Vol] 24 [iU]/d Normal 6 - 46 Int._Unit/L [facility] Anion gap [Moles/Vol] 14 mmol/L Normal 6 - 16 mEq/L R emisol Chem AST [Catalytic activity/Vol] 28 [iU]/d Normal 5 - 43 Int._Unit/L [facility] Bilirubin [Mass/Vol] 0.7 mg/dL Normal 0.0 - 1 .1 mg/dL [facility] Chem Calcium [Mass/Vol] 9.9 mg/dL Normal 8.9 - 11. 1 mg/dL [facility] Chloride [Moles/Vol] 103 mmol/L Normal 101 - 1 11 mmol/L [facility] CO2 [Moles/Vol] 26 mmol/L Normal 21 - 31 mmol/L [facility] Creatinine [Mass/Vol] 0.9 mg/dL Normal 0.5 - 1.3 mg/dL [facility] eGFR 70 mL/min/1.73 m2 Normal >=59mL/min /1 .73 m2 [facility] Globulin (S) [Mass/Vol] 3.2 g/dL Normal 1.4 - 4.0 gm/dL [facility] Glucose [Mass/Vol] 106 mg/dL Normal 55 - 199 mg/dL [facility] Potassium [Moles/Vol] 3.8 mmol/L Normal 3.5 - 5.3 mmol/L [facility] Protein [Mass/Vol] 7.4 g/dL Normal 6.0 - 7.8 gm/dL [facility] Sodium [Moles/Vol] 139 mmol/L Normal 135 - 145 mmol/L [facility] Urea nitrogen [Mass/Vol] 10 mg/dL Normal 5 - 21 mg/dL [facility] Urea nitrogen/Creatinine [Mass ratio] 11 mg/mg Normal 10 - 20 [facility] CMPon 12-21-2024 Albumin [Mass/Vol] 4.2 g/dL Normal 3.3-5.0 [facility] Comment on above: Performed By: #### 2 [id number] #### [facility] [address] [place] [address] Albumin/Globulin (S) [Mass conc ratio] 1.3 Normal 1.1-2.2 [facility] Comment on above: Performed By: #### 2 [id number] #### [facility] [address] [place] [address] ALP [Catalytic activity/Vol] 169 Int._Unit/L High 21-98 [facility] Comment on above: Performed By: #### 2 [id number] #### [facility] [address] [place] [address] ALT No additional P-5'-P [Catalytic activity/Vol] 24 Int._Unit/L Normal 6-46 [facility] Comment on above: Performed By: #### 2 [id number] #### [facility] [address] [place] [address] Anion gap [Moles/Vol] 14 mmol/L Normal 6-16 [facility] Comment on above: Performed By: #### 2 [id number] #### [facility] [address] [place] [address] AST [Catalytic activity/Vol] 28 Int._Unit/L Normal 5-43 [facility] Comment on above: Performed By: #### 2 [id number] #### [facility] [address] [place] [address] Bilirubin [Mass/Vol] 0.7 mg/dL Normal 0.0-1.1 [facility] Comment on above: Performed By: #### 2 [id number] #### [facility] [address] [place] [address] Calcium [Mass/Vol] 9.9 mg/dL Normal 8.9-11.1 [facility] Comment on above: Performed By: #### 2 [id number] #### [facility] [address] [place] [address] Chloride [Moles/Vol] 103 mmol/L Normal 101-111 [facility] Comment on above: Performed By: #### 2 [id number] #### [facility] [address] [place] [address] CO2 [Moles/Vol] 26 mmol/L Normal 21-31 [facility] Comment on above: Performed By: #### 2 [id number] #### [facility] [address] [place] [address] Creatinine [Mass/Vol] 0.9 mg/dL Normal 0.5-1.3 [facility] Comment on above: Performed By: #### 2 [id number] #### [facility] [address] [place] [address] Globulin (S) [Mass/Vol] 3.2 g/dL Normal 1.4-4.0 [facility] Comment on above: Performed By: #### 2 [id number] #### [facility] [address] [place] [address] Glucose [Mass/Vol] 106 mg/dL Normal 55-199 [facility] Comment on above: Performed By: #### 2 [id number] #### [facility] [address] [place] [address] Potassium [Moles/Vol] 3.8 mmol/L Normal 3.5-5.3 [facility] Comment on above: Performed By: #### 2 [id number] #### [facility] [address] [place] [address] Protein [Mass/Vol] 7.4 g/dL Normal 6.0-7.8 [facility] Comment on above: Performed By: #### 2 [id number] #### [facility] [address] [place] [address] Sodium [Moles/Vol] 139 mmol/L Normal 135-145 [facility] Comment on above: Performed By: #### 2 [id number] #### [facility] [address] [place] [address] Urea nitrogen [Mass/Vol] 10 mg/dL Normal 5-21 [facility] Comment on above: Performed By: #### 2 [id number] #### [facility] [address] [place] [address] Urea nitrogen/Creatinine [Mass ratio] 11 No Units Normal 10-20 [facility] Comment on above: Performed By: #### 2 [id number] #### [facility] [address] [place] [address] COAGULATIONOrdered By: Hudson Judge on 12-21-2024 aPTT Coag (PPP) [Time] 33.3 s Normal 25.1 - 36.5 second(s) [facility] Comment on above: Interpretive Data: Jaswinder hernandez 15 days - 4 weeks 1 - 5 months 6 - 11 months 1 - 5 years 6 - 10 years 11 - 17 years PTT Mean: 35.4 (27.6-45.6) Mean: 33.5 (24.8-40.7) Mean: 32.4 (25.1-40.7) Mean: 31.6 (24.0-39.2) Mean: 31.6 (26.9-38.7) Mean: 31.0 (24.6-38.4) Pediatric Reference ranges were obtained from a study by parmjit Downing al. prepared from 1437 samples obtained at 7 different centers using the same coagulation reagent and instrumentation as [facility] Currently there are no coagulation studies available worldwide for children to 14 days, and no normal ranges. Heparin therapeutic range (represented by Anti-Factor Xa activity of 0.2 - 0.4 U/mL) corresponds to PTT of 56.6 - 109.0 sec. INR Coag (PPP) [Relative time] 0.90 {INR} Invalid Interpretation Code [facility] Comment on above: Interpretive Data: I NR results are specifically intended to assess patients stabilized on long-term Anticoagulation therapy suggested INR s Less Intensive Anticoagulation 2.0 3.0 Conventional Range 3.0 4.5 PT Coag (PPP) [Time] 10.1 s Normal 9.4 - 1 2.5 second(s) [facility] Comment on above: Interpretive Data: 1 5 days - 4 weeks 1 - 5 months 6 -11 months 1-5 years 6-10 years 11 -17 years Mean: 11.2 (9.5-12.6) Mean: 11.0 (9.7-12.8) Mean: 11.0 (9.8-13.0) Mean: 11.3 (9.9-13.4) Mean: 11.7 (10.0-14.6) Mean: 11.8 (10.0 - 14.1) Pediatric Reference ranges were obtained from a study by Jose R Polk et al. prepared from 1437 samples obtained at 7 different centers using the same coagulation reagent and instrumentation as [facility] Currently there are no coagulation studies available worldwide for children to 14 days, and no normal ranges. CT Lower Extremity w/o Contr ast Lefton 12-21-2024 CT Lower Extremity w/o Contrast Left Exam Date/Time: 12/21/2024 11:53 EST Reason for Exam: left ankle;Trauma Report IMPRESSION: COMMINUTED FRACTURES OF THE DISTAL LEFT TIBIA AND FIBULA, CONSISTENT WITH COMMINUTED TRIMALLEOLAR FRACTURES. DISRUPTION OF THE ANKLE MORTISE DESCRIBED. CLINICAL HISTORY: Trauma, left ankle COMPARISON: Left ankle radiographs on 12/21/2024. COMMENT: Unenhanced images of the left ankle were obtained. There is a peripheral splint in place. There is a major transversely oriented fracture of the distal tibia at the base of the medial malleolar process, and there is comminution, with smaller fracture fragments at the medial cortex of the distal tibial metaphysis and interposed between the main proximal and distal tibial fracture fragments. The medial malleolar process of the distal tibia maintains a relationship with the talus. There is lateral subluxation (greater than one half of the articular surface between the tibia and talar dome) of the talus relative to the main proximal tibial fracture fragment (inferior articular surface). There is also a vertically oriented comminuted fracture, with multiple fragments involving the distal tibia posteriorly at the posterior malleolus. There is separation and displacement of posterior fracture fragments. There is posterior subluxation of the talar dome relative to the inferior articular surface of the distal tibia. There is valgus angulation of the talus relative to the inferior articular surface of the distal tibia. There is a markedly comminuted fracture of the distal fibular shaft, with some intermediate fracture fragments and multiple tiny fracture fragments. There is separation and displacement of distal tibial fracture fragments, with valgus angulation of the main distal fibular fracture fragment. The main distal fibular fracture fragment maintains a normal relationship to the talus at the lateral malleolus. There are small fracture fragments and some widening of the space between the distal tibia and fibula, consistent with interosseous membrane disruption. No fracture of the talus or calcaneus is evident. There is a plantar heel spur and a small posterior heel spur. There is a small separate rounded bony density at the dorsal proximal aspect of the navicular bone, and the appearance would suggest that this is old. Tarsal bones are otherwise unremarkable. Tarsal metatarsal joints appear unremarkable. There are peripheral soft tissue changes at the ankle, consistent with trauma. All CT scans at this facility use dose modulation, iterative reconstruction, and/or weight based dosing when appropriate to reduce radiation dose to as low as reasonably achievable. Report Ordering Provider: Dar Bailey FINAL REPORT Dictated: 12/21/2024 12:20 pm Casey Bright M.D. Signed (Electronic Signature): 12/21/2024 12:20 pm Signed by: Casey Bright M.D. Transcribed by: JAKE Technologist: YUDITH Mendoza [facility] ED Note-Physicianon 12-21-19 ED Note-Physician ED Note-Physician Basic Information Time Seen: Dar Bailey DO 12/21/2024 09:35 History of Present Illness 64 female presents by EMS after left lower extremity injury. Patient states just prior to arrival she slipped on the ice causing obvious deformity to her left ankle. She did not hit her head there was no other injury no other associated complaints. Patient denies any headache or neck pain she is not on any blood thinners. She did receive 75 mcg of fentanyl by EMS prior to arrival. She has never had major fracture or surgery to this area previously. No other aggravating or relieving factors no other associated symptoms no other prior treatments or complaints. Family: Reviewed and noncontributory Social: lives at home Review of systems negative unless otherwise specified in the HPI. Physical Exam General: The patient appears well and in no apparent distress. Patient is resting comfortably on cart. Skin: Warm, dry, no pallor noted. Head: Normocephalic, atraumatic Neck: No JVD Eye: PERRLA, EOMI ENT: Moist mucus membranes Cardiovascular: Regular rate normal peripheral perfusion Respiratory: No respiratory distress no accessory muscle use no obvious audible wheezing Chest Wall: no deformity Musculoskeletal: Left lower extremity: Obvious deformity to the left ankle with likely fracture dislocation and subtalar dislocation. There is tenting of the skin over that medial aspect of the left ankle. There is neurovascular status intact distally. No cyanosis. DP pulses intact plus 2 out of 4. GI: Soft no obvious distention. No rebound or rigidity. No guarding. No tenderness. Neurological: A&O moves all extremities equal strength and symmetry Psychiatric: Cooperative and appropriate Procedure Conscious sedation: The patient was placed on IV, O2, monitor, and pulse ox. Risk and benefits of procedure were gone over, paperwork was signed. Patient is aware of the risk of , disability, possible new fracture, neurovascular compromise, bleeding, infection, pain, unable to reduce the dislocation, unforeseen complications, respiratory difficulty or distress, airway compromise. Patient signed consent form. Patient was given a total of 160 mg propofol. Attending physician was present for the entire duration of the procedure. The affected extremity was immobilized. Cast padding was used to wrap the extremity. A posterior short leg splint with sugar-tong was applied by Dr. Bailey and the physician retail sales assistant using orthoglass. The patient tolerated this procedure well. Extremity was examined after application and was found to be neurovascularly intact distally. Medical Decision Making We did elect to reduce the fracture dislocation immediately because of the severe tenting of the skin and deformity of the lower extremity and concerns for the possibility of neurovascular compromise. Therefore after timeout procedure we did perform conscious sedation successfully reducing the lower extremity. Repeat x-rays demonstrate fracture dislocation with successful reduction of the joint. Case was then discussed with Dr. Tarango from orthopedics and I did obtain some baseline labs chest x-ray and EKG. Patient will be n.p.o. we will get CT scan of the left ankle and then Case was discussed with trauma for admission. Assessment/Plan Fracture dislocation of ankle (S82.899A: Other fracture of unspecified lower leg, initial encounter for closed fracture) Orders: propofol, 200 mg = 20 mL, Emulsion, IV, Once, Stop date 12/21/24 9:36:00 EST, STAT, Start date 12/21/24 9:36:00 EST, 12/21/24 9:36:00 EST CBC w/ Auto Diff Comprehensive Metabolic Panel CT Lower Extremity w/o Contrast Left ECG 12 Lead Adult PT & PTT XR Ankle 3+ Views Left XR Chest Single View Medications Administered Given propofol 10 mg/mL IV Emul 20 mL, 160 mg, IV Disposition Plan Discharge Prescription List Prescriptions No active prescription medications Follow-up No qualifying data available Problem List/Past Medical History Ongoing No qualifying data Historical No qualifying data Medications Inpatient propofol 10 mg/mL IV Emul 20 mL, 200 mg= 20 mL, IV, Once Home No active home medications Allergies No active allergies Lab Results No qualifying data available. Diagnostic Results No qualifying data available. Normal [facility] Comment on above: Result Comment: Elec tronically Signed By: Dar Bailey DO\.rupert\Date and Time Signed: 12/21/24 11:35 EST HEMATOLOGYOrdered By: SYSTEM SYSTEM on 12-21-2024 Basophils/100 WBC (Bld) 0.5 % Normal 0.0 - 2.0 % [facility] Basophils/Leukocytes Auto (Bld) [Pure # fraction] 0.1 E9/L Normal 0.0 - 0.2 E9/L [facility] Eosinophils (Bld) [#/Vol] 0.2 E9/L Normal 0.0 - 0.5 E9/L [facility] Eosinophils/100 WBC (Bld) 1.3 % Normal 0.0 - 8.0 % [facility] Erythrocyte distribution width (RBC) [Ratio] 13.2 % Normal 10.9 - 14.2 % [facility] Hematocrit (Bld) [Volume fraction] 42.5 % Normal 34.0 - 46.0 % [facility] Hemoglobin (Bld) [Mass/Vol] 15.2 g/dL Normal 12.0 - 16.0 gm/dL [facility] Lymphocytes (Bld) [#/Vol] 1.8 E9/L Normal 1.0 - 4.0 E9/L [facility] Lymphocytes/100 WBC (Bld) 15.0 % Normal 14.0 - 50.0 % [facility] MCH (RBC) [Entitic mass] 37.2 pg High 27.0 - 34.0 pg [facility] MCHC (RBC) [Mass/Vol] 35.7 g/dL Normal 31.4 - 36.0 gm/dL [facility] MCV (RBC) [Entitic vol] 104.1 fL High 80.0 - 100.0 fL [facility] Monocytes (Bld) [#/Vol] 0.7 E9/L Normal 0.2 - 1.0 E9/L [facility] Monocytes/100 WBC (Bld) 5.4 % Normal 4.0 - 14.0 % [facility] Neutrophils (Bld) [#/Vol] 9.6 E9/L High 2.0 - 7.5 E9/L [facility] Neutrophils/100 WBC (Bld) 77.8 % High 36.0 - 75.0 % [facility] Platelet 307.0 E9/L Normal 150.0 - 500.0 E9/L [facility] Platelet mean volume (Bld) [Entitic vol] 8.3 fL Normal 6.4 - 10.8 fL [facility] RBC (Bld) [#/Vol] 4.1 E12/L Low 4.3 - 5.9 E12/L [facility] WBC corrected for nucl RBC Auto (Bld) [#/Vol] 12.3 E9/L High 4.0 - 11.0 E9/L [facility] Inpatient Clinical Summaryon 12-21-2024 Inpatient Clinical Summary Inpatient Clinical Summary [address] [address] Clinical Summary Person Information: Name: MARILY CLEMONS Age: 64 Years : 1960 Sex: Female PCP: MARIS PUGH CNP Marital Status: Phone: [phone] Race: White Ethnicity: Non- or Language: Polish Visit Id: Visit Reason: Ankle injury - Major; Ankle pain-swelling; Fall; fall/ ankle deformity Speciality: Acuity: Enc Type: Observation Med Service: Medical Arrival: 12/21/2024 09:32:35 Discharge: Dispo Type: Address: [address] [place] [id number] Provider Notes: Diagnosis: Fracture dislocation of ankle Problems Active Smoker Smoking Status: Current Every Day Smoker Functional Status: Sensory Deficits: History of Falls: Immediately prior to hospitalization Mobility Assistance Prior to Admission: Independent ADLs: Independent Current Level of Assistance for Self-Care/Mobility: Cognitive Status: Oriented x 3 Allergies No Known Medication Allergies Measurements: Height: 160.02 cm Weight: 77.4 kg Blood Pressure: 132 mmHg / 80 mmHg BMI: 30.23 kg/m2 Procedures No Procedures Documented Immunizations No Immunizations Documented This Visit Final Med List: albuterol (Albuterol (Eqv-Proventil HFA) 90 mcg/inh inhalation aerosol) 2 Inhalation Inhalation every 6 hours as needed Wheezing. atorvastatin (atorvastatin 80 mg Tab) 1 Tablets By Mouth every day. hydrochlorothiazide (hydrochlorothiazide 25 mg Tab) 1 Tablets By Mouth every day. levalbuterol (levalbuterol CFC free 45 mcg/inh Inh Aer w/adapter) 2 Inhalation Inhalation every 6 hours as needed Wheezing. INHALE 2 PUFFS BY MOUTH EVERY 6 HOURS NEEDED. levothyroxine (levothyroxine 200 mcg (0.2 mg) Tab) 1 Tablets By Mouth every day. TAKE 1 TABLET BY MOUTH EVERY DAY IN THE MORNING ON EMPTY STOMACH FOR 90 DAYS. Care Team Members: Attending Physician: Nida RODRIGUEZ, Tony Bragg Consulting Physician: Referring Physician: Follow up: With: Address: When: Garret Tarango [address] [place] [address] [facility] (1) Within 2 weeks Comments: Call for followup appointment With: Address: When: MARIS PUGH [address] [facility] [address] [phone] Business (1) Patient Education Information: Holman - Ankle Fracture Post Op (Custom) Normal [facility] Inpatient Patient Summaryon 12-21-2024 Inpatient Patient Summary Inpatient Patient Summary [address] [address] Patient Discharge Instructions PERSON INFORMATION Name: CLEMONS, MARILY Epps Date of : 1960 Current Date: 12/21/2024 21:14:49 PHYSICIANS Admitting Physician: Nida RODRIGUEZ, Tony Bragg Primary Care Physician: MARIS PUGH CNP PCP Phone Number: [phone] Comment: Discharge Diagnosis: Fracture dislocation of ankle Condition at Discharge: MARILY CLEMONS has been given the following list of follow-up instructions, prescriptions, and patient education materials: PATIENT FOLLOW-UP INFORMATION Diet: Discharge Activity: Discharge Restrictions: Wound Care Instructions: Remove Your Dressing In Days Call Your Doctor For: IF UNABLE TO CONTACT YOUR PHYSICIAN AND YOU FEEL IT IS AN EMERGENCY, GO TO THE NEAREST EMERGENCY ROOM OR CALL 911 Home Treatment: Devices/Equipment: None Special Services: Additional Instructions: Primary Care Physician to provide the following pending test results: Follow up: With: Address: When: Garret Tarango [address] [place] [id number] Business (1) Within 2 weeks Comments: Call for followup appointment With: Address: When: MARIS PUGH [address] [place], [place] [address] [address] [phone] Business (1) In the event that this physician does not participate in your insurance network, please consult with your insurance company to find a nearby participating provider. Comment: JANKI Guerra CHRISTINA J, have received the attached patient education materials/instructions and have verbalized understanding: Patient Signature Date Clinican/Nurse Signature ___ Date HERE ARE THE MEDICATION CHANGES THAT OCCURRED DURING YOUR HOSPITAL STAY Medications to Continue with No Changes Other Medications albuterol (Albuterol (Eqv-Proventil HFA) 90 mcg/inh inhalation aerosol) 2 Inhalation Inhalation every 6 hours as needed Wheezing. Last Dose: ___Next Dose: ___ atorvastatin (atorvastatin 80 mg Tab) 1 Tablets By Mouth every day. Last Dose: ___Next Dose: ___ hydrochlorothiazide (hydrochlorothiazide 25 mg Tab) 1 Tablets By Mouth every day. Last Dose: ___Next Dose: ___ levalbuterol (levalbuterol CFC free 45 mcg/inh Inh Aer w/adapter) 2 Inhalation Inhalation every 6 hours as needed Wheezing. INHALE 2 PUFFS BY MOUTH EVERY 6 HOURS NEEDED. Last Dose: ___Next Dose: ___ levothyroxine (levothyroxine 200 mcg (0.2 mg) Tab) 1 Tablets By Mouth every day. TAKE 1 TABLET BY MOUTH EVERY DAY IN THE MORNING ON EMPTY STOMACH FOR 90 DAYS. Last Dose: ___Next Dose: ___ Comment: MEDICATION LIST PROVIDED FOR YOU IS A LIST OF YOUR CURRENT MEDICATIONS. PLEASE CARRY THIS WITH YOU AT ALL TIMES. albuterol (Albuterol (Eqv-Proventil HFA) 90 mcg/inh inhalation aerosol) 2 Inhalation Inhalation every 6 hours as needed Wheezing. atorvastatin (atorvastatin 80 mg Tab) 1 Tablets By Mouth every day. hydrochlorothiazide (hydrochlorothiazide 25 mg Tab) 1 Tablets By Mouth every day. levalbuterol (levalbuterol CFC free 45 mcg/inh Inh Aer w/adapter) 2 Inhalation Inhalation every 6 hours as needed Wheezing. INHALE 2 PUFFS BY MOUTH EVERY 6 HOURS NEEDED. levothyroxine (levothyroxine 200 mcg (0.2 mg) Tab) 1 Tablets By Mouth every day. TAKE 1 TABLET BY MOUTH EVERY DAY IN THE MORNING ON EMPTY STOMACH FOR 90 DAYS. Pharmacy Information: Comment: PATIENT EDUCATION INFORMATION Instructions: [place] [place] [facility] DISCHARGE INSTRUCTIONS: ANKLE FRACTURE POSTOPERATIVE ACTIVITY: Rest ??? you should continue to rest the ankle for at least the next five to seven days to promote healing and decrease the possibility of swelling. Crutches or walker should be continued to be used with non-weight bearing as instructed in physical therapy. Walking should be only as necessary for the next several days when swelling may be prominent. To maximize comfort, try to keep the ankle elevated to at least the level of your heart. This should help decrease discomfort and swelling. Swelling and bruising are not uncommon after ankle fractures. The development or worsening of numbness and tingling may be a sign of excess swelling and should be promptly reported to your surgeon. Driving is legal ??? but not recommended. It is legal for you to drive but driving is not advisable until at least your first office visit. You must be certain that you can maintain control of your vehicle in any and all situations before you make the decision to resume driving. MEDICATION: You will receive a prescription for pain medication to be used as needed, after (more content not included)... Normal [facility] Main OR Intraoperative Recor don 12-21-2024 Main OR Intraoperative Record Main OR Intraoperative Record IntraOp Document Type FT Summary Primary Physician: Garret Tarango DO Finalized Date/Time: 12/21/24 20:49:45 Pt. Name: MARILY CLEMONS/Sex: 1960 Female Med Rec #: [id number] Physician: Nida RODRIGUEZ, Tony Bragg Financial #: [id number] Pt. Type: O Room/Bed: N315/01 Admit/Disch: 12/21/24 09:32:35 - Institution: Case Times FT Entry 1 Patient Times In Room 12/21/24 18:31:00 Out Room 12/21/24 20:39:00 Procedure Times Start 12/21/24 18:57:00 Stop 12/21/24 20:35:00 Anesthesia Times Start 12/21/24 18:31:00 Stop 12/21/24 20:39:00 Last Modified By: Reyes Parker 12/21/24 20:45:13 Case Attendance FT Entry 1 Entry 2 Entry 3 Case Attendee Carmencita JHA, Garret Gaitan Jr., DO, Renay Garces CST Role Performed Surgeon - Primary Anesthesiologist of GAS STATION SERVICE ATTENDANT/SA Record Time In 12/21/24 18:38:00 12/21/24 18:31:00 12/21/24 18:31:00 Time Out 12/21/24 20:39:00 12/21/24 20:39:00 12/21/24 20:39:00 Procedure ANKLE FRACTURE ANKLE FRACTURE ANKLE FRACTURE ORIF(Left) ORIF(Left) ORIF(Left) Comments Last Modified By: Reyes Parker Terry T Sweene, Terry T 12/21/24 20:45:15 12/21/24 20:45:15 12/21/24 20:45:15 Entry 4 Entry 5 Entry 6 Case Attendee Reyes Parker, Thalia Steele Role Performed Online Advertising Analyst - Primary Scrub - Primary Lokie Engineer Time In 12/21/24 18:31:00 12/21/24 18:31:00 12/21/24 18:39:00 Time Out 12/21/24 20:39:00 12/21/24 20:39:00 12/21/24 20:39:00 Procedure ANKLE FRACTURE ANKLE FRACTURE ANKLE FRACTURE ORIF(Left) ORIF(Left) ORIF(Left) Comments Last Modified By: Reyes Parker Terry T Sweene, Terry T 12/21/24 20:45:15 12/21/24 20:45:15 12/21/24 20:45:15 General Comments: SANDY CRAWLEY - SUNITA REP HERE FOR CASE. Jovan PARKER RN. ENID MANCIA - SUNITA REP HERE FOR CASE. T SWEENE RN. Perioperative Protocols FT Pre-Care Text: Implements protective measures prior to operative or invasive procedure, confirms identity before the operative or invasive procedure, verifies operative procedure, surgical site, and laterality Entry 1 Procedure(s) ANKLE FRACTURE Patient Identity Birthday, ID Band ORIF(Left) Verified (select at Check, Patient least 2): Participation Consents / H and P Anesthesia Consent, Operative Site Present Verified H&P, Surgery/Procedure Marking Verified Consent Surgical Site Yes Laterality Verified Yes Verified Procedure Verified Yes Correct Patient Yes Position Verified Availability Equipment, Implant, Prep Dry Yes Verified (If Medication, X-ray Applicable) PreOp Antibiotic Yes Time Out Garret Tarango DO, Given Participants Arnie Ortez DO, Rosalio Rosado, Clinton ADHIKARI, Renay Umana, Reyes Parker, Jorge L Giang R, Thalia Martinez Time Out Complete 12/21/24 18:57:00 Outcomes Met? Yes Last Modified By: Reyes Parker 12/21/24 19:16:57 Post-Care Text: The patient is free from signs and symptoms of injury caused by extraneous objects Allergy Information FT Pre-Care Text: Verifies allergies Entry 1 Allergies Reviewed? Yes Allergies Reviewed Self/Patient With Outcomes Met? Yes Last Modified By: Reyes Parker 12/21/24 19:17:05 Post-Care Text: The patient received appropriate medication(s) safely administered during the perioperative period Surgical Procedures FT Entry 1 Procedure Description Procedure ANKLE FRACTURE ORIF Modifiers Left Surgeon Description OPEN REDUCTION INTERNAL FIXATION LEFT ANKLE Primary Procedure Yes Primary Surgeon Garret Tarango DO Start 12/21/24 18:57:00 Stop 12/21/24 20:35:00 Anesthesia Type General Surgical Service Orthopedics Wound Class 1 - Clean Last Modified By: Reyes Parker 12/21/24 20:46:40 General Case Data FT Pre-Care Text: Classifies surgical wound, implements aseptic technique, initiates traffic control Entry 1 Case Information OR OR 4 FT Case Level Level 4 Wound Class 1 - Clean Specialty Orthopedics ASA Class 2 Preop Diagnosis LEFT ANKLE FRACTURE Postop Same As Preop Yes Postop Diagnosis LEFT ANKLE FRACTURE Outcomes Met? Yes Last Modified By: Reyes Parker 12/21/24 19:17:21 Post-Care Text: The patient is free from signs and symptoms of infection Skin Assessment (Pre Procedure) FT Pre-Care Text: Implements protective measures to prevent skin/ tissue injury due to thermal or mechanical sources Evaluates for signs and symptoms of physical injury to skin and tissue Entry 1 Skin Integrity Intact, [place], Warm, & Skin Abnormality Yes Dry Abnormality Location LEFT ANKLE Abnormality Type REDDENED ARE MEDIAL ASPECT OF LEFT ANKLE APPROXIMATELY 1 INCH DIAMETER Outcomes Met? Yes Last Modified By: Reyes Parker 12/21/24 19:18:11 Post-Care Text: The patient is free from signs and symptoms of injury caused by extraneous objects Patient Positioning FT Pre-Care Text: Identifies physical alterations that require additional precautions for (more content not included)... Normal [facility] Main OR PACU I Recordon 12-04 Main OR PACU I Record Main OR PACU I Rec ord PACU Phase I Document Type FT Summary Primary Physician: Garret Tarango DO Finalized Date/Time: 12/21/24 21:49:55 Pt. Name: MARILY CLEMONS./Sex: 1960 Female Med Rec #: [id number] Physician: Nida RODRIGUEZ, Tony [employer] #: [id number] Pt. Type: O Room/Bed: [place] [address] Admit/Disch: 12/21/24 09:32:35 - Institution: Case Times PACU I FT Pre-Care Text: Identifies barriers to communication and implements measures to provide psychological support Develops individualized plan of care, and ensures continuity of care Maintains patient's dignity and privacy, and maintains patient confidentiality Identifies and reports philosophical, cultural, and spiritual beliefs and values Identifies individual values and wishes concerning care Implements aseptic technique, and administers prescribed antibiotic therapy and immunizing agents as ordered Evaluates postoperative tissue perfusion Implements thermoregulation measures, and monitors body temperature Evaluates postoperative respiratory status Evaluates postoperative cardiac status Evaluates postoperative neurological status Assesses pain control, collaborated in initiating patient-controlled analgesia and implements alternative methods of pain control Verifies allergies, administers prescribed medications and solutions, evaluates response to medications Entry 1 In PACU I 12/21/24 20:40:00 Discharge from PACU 12/21/24 21:20:00 I Outcomes Met? Yes Last Modified By: Jennifer Sandra RN 12/21/24 21:49:40 Post-Care Text: The patient demonstrates knowledge of the expected response to the operative or invasive procedure The patient's care is consistent with the individualized perioperative plan of care The patient's right to privacy is maintained The patient's value system, lifestyle, ethnicity, and culture are considered, respected, and incorporated into the perioperative plan of care The patient participates in decisions affecting his or her perioperative plan of care The patient is free from signs and symptoms of infection The patient has wound/tissue perfusion consistent with or improved from baseline levels established preoperatively The patient is at or returning to normothermia at the conclusion of the immediate postoperative period The patient's respiratory function is consistent with or improved from baseline levels established preoperatively The patient's cardiovascular status is consistent with or improved from baseline levels established preoperatively The patient's cardiovascular status is consistent with or improved from baseline levels established preoperatively The patient demonstrates and/or reports adequate pain control throughout the perioperative period The patient received appropriate medication(s), safely administered during the perioperative period Acuity Level PACU I FT Entry 1 Start Time 12/21/24 20:40:00 Stop Time 12/21/24 21:20:00 Acuity Level Acuity Level I Last Modified By: Jennifer Sandra RN 12/21/24 21:49:53 Finalized By: Jennifer Sandra RN Document Signatures Signed By: Jennifer Sandra RN 12/21/24 21:49 Normal [facility] Main OR Preoperative Recordo n 12-21-2024 Main OR Preoperative Record Main OR Preoperative Record PreOp Document Type FT Summary Primary Physician: Garret Tarango DO Finalized Date/Time: 12/21/24 19:13:26 Pt. Name: MARILY CLEMONS/Sex: 1960 Female Med Rec #: [id number] Physician: Nida RODRIGUEZ, Tony [employer]agg Financial #: [id number] Pt. Type: O Room/Bed: N315/01 Admit/Disch: 12/21/24 09:32:35 - Institution: Case Times PreOp FT Pre-Care Text: Verifies consent for planned procedure, identifies individual values and wishes concerning care, includes family members in perioperative teaching Entry 1 Patient Times. In Pre Surgery 12/21/24 16:05:00 Out Pre Surgery 12/21/24 18:29:00 Outcomes Met? Yes Last Modified By: Reyes Parker 12/21/24 19:13:25 Post-Care Text: The patient participates in decisions affecting his or her perioperative plan of care Finalized By: Reyes Parker Document Signatures Signed By: Reyes Parker 12/21/24 19:13 Normal [facility] Operative Reporton Operative Report Operative Report Patient: MARILY CLEMONS Age: 64 years Sex: Female : 1960 Associated Diagnoses: None Author: Garret Tarango DO DATE OF SURGERY: 12/21/2024 SURGEON: Garret Tarango D.O. MIRROR INSTALLER: Renay Alonzo CFA PREOPERATIVE DIAGNOSIS: Trimalleolar fracture/dislocation, left ankle POSTOPERATIVE DIAGNOSIS: Trimalleolar fracture/dislocation, left ankle PROCEDURE: 1. Open reduction internal fixation, medial and lateral malleoli, left ankle 2. Syndesmosis fixation, left ankle 3. Physician use of intraoperative fluoroscopy 4. Application short leg fiberglass posterior splint ANESTHESIA: General ANESTHESIOLOGIST: Rosalio Gaitan DO IMPLANTS: 1. Medial malleolus: Arthrex 4.0 mm partially-threaded cannulated stainless steel screws x 2 2. Lateral malleolus: Arthrex FibuLock Nail 3.0 x 130 mm with 2.7 mm screws x 2 3. Syndesmosis: Arthrex stainless steel tight rope OPERATIVE INDICATIONS: Marily is a 64-year-old female who slipped on the ice earlier today and sustained the above injury. She was brought to the emergency department and found to have gross deformity to the ankle with tenting of the skin. She underwent closed reduction by the ED staff and was placed into a splint. I evaluated the patient in the emergency department and recommended urgent operative invention due to the position of her ankle mortise. She agreed to proceed with the above procedure after discussion of the risks, benefits, complications, alternatives, and expectations. Please see hospital records for further details. PROCEDURE IN DETAIL: The correct operative site was identified and marked in the preoperative holding area. The patient's splint was opened anteriorly and her skin was inspected. There was tenting of the skin medially from the distal tibia but no open wounds and no blanching of the skin. No fracture blisters were present. Only mild swelling was present. The patient was administered intravenous antibiotics in accordance with SCIP protocol and was also administered 1 g of tranexamic acid intravenously. She was transported to the operating room and administered general anesthetic on her hospital [facility]. She was transferred to the operating room table in the supine position. A well-padded tourniquet was applied to the left upper thigh. The tourniquet was not inflated during the procedure. A small sandbag was placed onto the patient's left hip and the BoneFoam padded ramp was placed under the left leg. The ankle was manually reduced to take tension off the skin and the left lower extremity was prepped and draped in the usual sterile fashion. Surgical timeout was performed with all required personnel present. Attention was turned to the medial aspect of the ankle first. A gently curved longitudinal incision over the medial malleolus was made. The incision was placed as posterior to the previously tented skin as possible. Dissection was carried down to the fracture site. There was comminution along the medial cortex. The fracture site was cleared of soft tissue and hematoma. The medial malleolus fracture was grasped with a pointed reduction forceps and reduced to the distal tibia. The reduction was held with another pointed reduction clamp. The reduction was assessed with fluoroscopy in multiple planes. 2 parallel K wires were then placed across the fracture site beginning at the tip of the medial malleolus. Position of the K wires was checked with fluoroscopy. The K wires and reduction clamp were left in place while the lateral aspect of the ankle was addressed. A small incision 1 cm distal to the tip of the fibula was made. The guidewire was placed at the desired entry point at the tip of the distal fibula just lateral to the edge of the malleolar fossa. The guidewire was advanced into the distal fibula and stopped just short of the fracture site which was highly comminuted. A small incision over the fracture site was made and the main proximal fragment was aligned with the distal fragment using an elevator. The guidewire was then advanced across the area of comminution and into the proximal fracture fragment. Position of the guidewire was checked on AP, mortise, and lateral views. The soft tissue protector was slid over the guidewire and the 6.2 mm reamer was drilled to the appropriate depth. The 3.2 mm reamer was then placed over the guidewire and used to prepare the remainder of the path for the nail proximally. The 3.2 mm reamer achieved adequate cortical chatter. A metal sled was slid over the guidewire and into the distal fibula. The guidewire was removed. The nail was assembled on the back table and then slid over the metal sled into the fibula. Position of the nail was assessed with fluoroscopy in multiple planes. The metal sled was removed. Position of the nail was confirmed with fluoroscopy and a 1.6 mm K wire was placed in the outrigger end hole to confirm that the distal portion of the nail was slightly countersunk in the f (more content not included)... Normal [facility] Comment on above: Result Comment: Elec tronically Signed By: Garret Tarango DO\.br\Date and Time Signed: 12/21/24 21:08 EST Operative Report Operative Report Patient: MARILY CLEMONS Age: 64 years Sex: Female : 1960 Associated Diagnoses: None Author: Garret Tarango DO Chief Complaint 12/21/2024 16:40 EST I fell on ice and I broke my foot 12/21/2024 9:37 EST Pt fell this AM. Ankle deformity to left ankle. Pulses intact. ASA 81 daily. no LOC. No head/neck pain. History of Present Illness Marily is a 64-year-old female who slipped on the ice earlier today while she was out in the community. She had immediate pain in the left ankle and had to wait for a bystander in order to contact emergency services. She was brought to the hospital and found to have gross deformity to the left ankle with tenting of the skin. The ankle was provisionally reduced by the emergency department staff and placed into a splint. She denies any other injuries at the time of her fall. She denies head injury or loss of consciousness. She typically ambulates independently and lives at home with her . She is complaining of pain primarily about the medial aspect of the ankle. Review of Systems Denies pain in the left hip or knee. Denies acute pain in the right lower extremity or bilateral upper extremities. Denies chest pain, shortness of breath, abdominal pain, nausea, vomiting. Health Status Allergies: Allergic Reactions (Selected) No Known Medication Allergies Current medications: Home Medications (5) Active Albuterol (Eqv-Proventil HFA) 90 mcg/inh inhalation aerosol 2 inh, PRN, Inhalation, q6hr atorvastatin 80 mg Tab 80 mg = 1 tab(s), Oral, Daily hydrochlorothiazide 25 mg Tab 25 mg = 1 tab(s), Oral, Daily levalbuterol CFC free 45 mcg/inh Inh Aer w/adapter 2 inh, PRN, Inhalation, q6hr levothyroxine 200 mcg (0.2 mg) Tab 200 mcg = 1 tab(s), Oral, Daily Problem list: All Problems Tobacco use / SNOMED CT 6886425352 / Confirmed HTN (hypertension) / SNOMED CT 7714347786 / Confirmed Hypothyroidism / SNOMED CT 03658608 / Confirmed High cholesterol / SNOMED CT 27921975 / Confirmed Smoker / SNOMED CT 018736657 / Confirmed Added secondary to documentation in Social History. Histories Past Medical History: No active or resolved past medical history items have been selected or recorded. Family History: No family history items have been selected or recorded. Procedure history: No active procedure history items have been selected or recorded. Social History Social & Psychosocial Habits Alcohol 12/21/2024 Risk Assessment: Denies Alcohol Use Substance Abuse 12/21/2024 Risk Assessment: Denies Substance Abuse Tobacco 12/21/2024 Tobacco Use: 10 or more cigarettes (12/21/2024 Risk Assessment: Medium Risk . Physical Examination Alert and oriented, no acute distress Head is atraumatic Hearing intact to conversational tones Normal conjugate gaze Left lower extremity: Splint is in place. Able to wiggle the toes. Sensation is intact over the toes. Brisk capillary refill. No effusion to the left knee and no tenderness to palpation at the left knee. Right lower extremity: Moves the ankle, knee, hip without difficulty. Review / Management Results review: Lab results 12/21/2024 11:54 EST WBC 12.3 E9/L HI HGB 15.2 gm/dL Hct 42.5 % Platelet 307.0 E9/L PT 10.1 second(s) INR 0.90 NA PTT 33.3 second(s) eGFR 70 mL/min/1.73 m2 . IMAGIN views of the left ankle, AP/lateral, taken today are reviewed. There is a transverse displaced fracture of the medial malleolus. There is a comminuted fracture of the distal fibula with widening of the syndesmosis. The talus is subluxed laterally approximately 50%. There is a small displaced fracture of the posterior malleolus. Impression and Plan 64-year-old female with a trimalleolar fracture/dislocation, left ankle. I reviewed the history, physical exam, radiographs, and diagnosis with the patient. Recommendation is made for operative invention. We will proceed with open reduction internal fixation possible external fixation of the left ankle later today. I explained the possibility of requiring 2 surgeries for definitive fixation of the fractures. Continue with n.p.o. status. I reviewed the risks, benefits, complications, and expectations of surgery. The risks include, but are not limited to, the risk of anesthesia, infection, neurovascular injury, DVT, PE, and . The patient will be admitted to the hospital under the hospitalist service after surgery. A CT scan of the left ankle will be obtained to better delineate the fracture pattern and for presurgical planning. Thank you for the consultation. A total of 45-59 minutes was spent on this patient encounter including chart review, history taking, physical exam, diagnostic study review, patient counseling and discussion, entering information into the patient???s medical record, and coordinating care. Normal [facility] Comment on above: Result Comment: Elec tronically Signed By: Garret Tarango DO\.br\Date and Time Signed: 12/21/24 18:23 EST PT & PTTon 12-21-2024 aPTT Coag (PPP) [Time] 33.3 second(s) Normal 25.1-36.5 [facility] Comment on above: Order Comment: pt us ing restroom 1138 per jacee Result Comment: Para meter 15 days - 4 weeks 1 - 5 months 6 - 11 months 1 - 5 years 6 - 10 years 11 - 17 years PTT Mean: 35.4 (27.6-45.6) Mean: 33.5 (24.8-40.7) Mean: 32.4 (25.1-40.7) Mean: 31.6 (24.0-39.2) Mean: 31.6 (26.9-38.7) Mean: 31.0 (24.6-38.4) Pediatric Reference ranges were obtained from a study by parmjit Downing al. prepared from 1437 samples obtained at 7 different centers using the same coagulation reagent and instrumentation as [facility]. Currently there are no coagulation studies available worldwide for children to 14 days, and no normal ranges. Heparin therapeutic range (represented by Anti-Factor Xa activity of 0.2 - 0.4 U/mL) corresponds to PTT of 56.6 - 109.0 sec. Performed By: #### 1 [id number] #### [facility] [address] [place] [address] INR Coag (PPP) [Relative time] 0.90 {INR} Invalid Interpretation Code [facility] Comment on above: Order Comment: pt us ing restroom 1138 per jacee Result Comment: INR results are specifically intended to assess patients stabilized on long-term Anticoagulation therapy suggested INR???s ???Less Intensive Anticoagulation??? 2.0 ??? 3.0 Conventional Range 3.0 ??? 4.5 Performed By: #### 1 [id number] #### [facility] [address] [place] [address] PT Coag (PPP) [Time] 10.1 second(s) Normal 9.4-12.5 [facility] Comment on above: Order Comment: pt us ing restroom 1138 per jacee Result Comment: 15 d ays - 4 weeks 1 - 5 months 6 -11 months 1-5 years 6-10 years 11 -17 years Mean: 11.2 (9.5-12.6) Mean: 11.0 (9.7-12.8) Mean: 11.0 (9.8-13.0) Mean: 11.3 (9.9-13.4) Mean: 11.7 (10.0-14.6) Mean: 11.8 (10.0 - 14.1) Pediatric Reference ranges were obtained from a study by parmjit Downing al. prepared from 1437 samples obtained at 7 different centers using the same coagulation reagent and instrumentation as [facility]. Currently there are no coagulation studies available worldwide for children to 14 days, and no normal ranges. Performed By: #### 1 [id number] #### [facility] [address] [place] [address] Pre-Arrival Noteon 5 Pre-Arrival Note Pre-Arrival Note Pre-Arrival Summary Name: kody Current Date: 12/21/2024 09:33:32 EST Gender: Female Date of : Age: 61 Pre-Arrival Type: EMS ETA: 12/21/2024 09:58:00 EST Primary Care Physician: Presenting Problem: fall/ankle deformity Pre-Arrival User: Jacquelyn Pineda RN Referring Source: Location: [place] Completion Date/Time: 12/21/2024 09:28:00 [facility] Emergency Department Pre-Hospital Report Form Vital Signs: Pre-Hospital Report: fall, +thinner. left ankle deformity. 22 L forearm, 75mcg fent, 145/94, 113, 6 98% Treatment in Route: Response to Treatment: Misc. Issues: Normal [facility] XR ANKLE 2 VIEWS LEFTon 12-04 Radiology Study observation (narrative) [facility] XR Ankle 3+ Views Lefton XR Ankle 3+ Views Left Exam Date/Time: 12/21/2024 10:26 EST Reason for Exam: Injury Report IMPRESSION: COMMINUTED TRIMALLEOLAR FRACTURES WITH DISRUPTION OF THE ANKLE MORTISE. CLINICAL HISTORY: Injury. COMMENT: 2 views were obtained in a radiopaque splint. The images are labeled post reduction. There is a comminuted transversely oriented fracture of the distal tibia at the base of the medial malleolar process, and with fracture involving medial cortex of the distal tibial metaphysis. There is a comminuted fracture of the distal tibia at the posterior malleolus. There is comminuted fracture of the distal shaft of the fibula, with intermediate and smaller fracture fragments. The medial malleolar process of the distal tibia and the lateral malleolar process of the distal fibula maintain relationships to the talus. There is disruption of the ankle mortise, with lateral and posterior subluxation of the talus relative to the distal tibia. There is valgus angulation of the talus and the medial malleolar process of the distal tibia and the lateral malleolar process of the distal fibula relative to the main proximal tibial and fibular fracture fragments. Ordering Provider: Dar Bailey FINAL REPORT Dictated: 12/21/2024 12:25 pm Casey Bright M.D. Signed (Electronic Signature): 12/21/2024 12:25 pm Signed by: Casey Bright M.D. Transcribed by: JAKE Technologist: SAMUEL Mendoza [facility] XR Chest Single Viewon 12-21 XR Chest Single View Exam Date/Time: 12/21/2024 12:27 EST Reason for Exam: Chest pain Report IMPRESSION: LEFT LUNG BASE INFILTRATE AND/OR ATELECTASIS. EXAM: XR Chest Single View History: Chest pain Technique: Portable AP view of the chest. Comparison: None available Findings: The cardiomediastinal silhouette is within normal limits. Patchy left lung base opacities. No pneumothorax or pleural effusion. No acute osseous abnormality. Ordering Provider: Dar Bailey FINAL REPORT Dictated: 12/21/2024 1:19 pm Jose David Chinchilla DO Signed (Electronic Signature): 12/21/2024 1:19 pm Signed by: Jose David Chinchilla DO Transcribed by: JAKE Technologist: SAMUEL Mendoza [facility] eGFRon 12-21-2024 eGFR 70 mL/min/1.73 m2 Normal >=59 [facility] Comment on above: Performed By: #### 1 [id number] #### [facility] [address] [place] [id number] MM screening mammo BI w/CADo n 05-08-2021 MM screening mammo BI w/CAD [facility] [place] [address] [place] [id number] Mammography Report Signed Patient: Marily Clemons MR#: [id number] : 1960 Acct:[id number] Age/Sex: 60 / F ADM Date: 05/08/21 Loc: [place] Room: Type: [facility] Attending Dr: Shannan Schwartz (Clinic) , [facility] Ordering Provider: Shannan Schwartz DO Date of Service: 05/08/21 MM/MM screening mammo BI w/CAD: SCREEN Copies to: Shannan Schwartz DO CLINICAL DATA: Screening for malignancy. BILATERAL [...] Christina Morales M.D.05/08/2021 1:21 PM Dictation Location: [facility] Transcribed By: [facility] 05/08/21 1321 Dictated By: Christina Morales MD 05/08/21 1317 Signed By: 05/08/21 1321 [facility] Vital Signs Date Time Vital Sign Value Performing Clinician Facility 06-02-2025 09:50-0400 Body height 160 cm Garret Tarango DO Work Phone: [facility] 06-02-2025 09:50-0400 Body mass index (BMI) [Ratio] 28.34 kg/m2 Garret Tarango DO Work Phone: [facility] 06-02-2025 09:50-0400 Body weight 72.58 kg Garret Brown DO Work Phone: [facility] 03-31-2025 09:32-0400 Body height 160 cm Garret Brown DO Work Phone: [facility] 03-31-2025 09:32-0400 Body mass index (BMI) [Ratio] 28.34 kg/m2 Garret Brown DO Work Phone: [facility] 03-31-2025 09:32-0400 Body weight 72.58 kg Garret Brown DO Work Phone: [facility] 02-28-2025 10:37-0400 Body height 160 cm Garret Brown DO Work Phone: [facility] 02-28-2025 10:37-0400 Body mass index (BMI) [Ratio] 28.34 kg/m2 Garret Brown DO Work Phone: [facility] 02-28-2025 10:37-0400 Body weight 72.58 kg Garret Brown DO Work Phone: [facility] 01-31-2025 11:08-0400 Body height 160 cm Garret Brown DO Work Phone: [facility] 01-31-2025 11:08-0400 Body mass index (BMI) [Ratio] 28.34 kg/m2 Garret Brown DO Work Phone: [facility] 01-31-2025 11:08-0400 Body weight 72.58 kg Garret Brown DO Work Phone: [facility] 12-22-2024 16:27-0500 Heart rate 85 /min Tony Alva [facility] 12-22-2024 16:27-0500 SaO2% (BldA) [Mass fraction] 95 % Tony Alva [facility] 12-22-2024 16:27-0500 Diastolic blood pressure 79 mm[Hg] Tony Nida [facility] 12-22-2024 16:27-0500 Mean blood pressure 98 mm[Hg] Tony Szynkowski [facility] 12-22-2024 16:27-0500 Systolic blood pressure 138 mm[Hg] Tony Szynkowski [facility] 12-22-2024 16:27-0500 Body temperature 97.88 [degF] Tony Szynkowski [facility] 12-22-2024 16:21-0500 Hourly Rounding Tony Szynkowski [facility] 12-22-2024 16:21-0500 Promise to Return Tony Szynkowski [facility] 12-22-2024 15:00-0500 Hourly Rounding Tony Szynkowski [facility] 12-22-2024 15:00-0500 Promise to Return Tony Szynkowski [facility] 12-22-2024 14:00-0500 Hourly Rounding Tony Szynkowski [facility] 12-22-2024 14:00-0500 Promise to Return Tony Szynkowski [facility] 12-22-2024 11:03-0500 Heart rate 96 /min Tony Szynkowski [facility] 12-22-2024 11:03-0500 SaO2% (BldA) [Mass fraction] 97 % Tony Szynkowski [facility] 12-22-2024 11:02-0500 Body temperature 97.88 [degF] Tony Szynkowski [facility] 12-22-2024 11:02-0500 Diastolic blood pressure 90 mm[Hg] Tony Szynkowski [facility] 12-22-2024 11:02-0500 Mean blood pressure 110 mm[Hg] Tony Szynkowski [facility] 12-22-2024 11:02-0500 Systolic blood pressure 151 mm[Hg] Tony Szynkowski [facility] 12-22-2024 07:00-0500 Body temperature 98.06 [degF] Tony Szynkowski [facility] 12-22-2024 07:00-0500 Diastolic blood pressure 62 mm[Hg] Tony Szynkowski [facility] 12-22-2024 07:00-0500 Heart rate 86 /min Tony Szynkowski [facility] 12-22-2024 07:00-0500 Systolic blood pressure 107 mm[Hg] Tony Szynkowski [facility] 12-22-2024 05:50-0500 Blood Pressure Location Tony Szynkowski [facility] 12-22-2024 05:50-0500 Body temperature 98.6 [degF] Tony Szynkowski [facility] 12-22-2024 05:50-0500 Mean blood pressure 83 mm[Hg] Tony Szynkowski [facility] 12-22-2024 05:50-0500 Respiratory rate 18 /min Tony Szynkowski [facility] 12-22-2024 00:00-0500 Body temperature 98.42 [degF] Tony Szynkowski [facility] 12-22-2024 00:00-0500 Mean blood pressure 80 mm[Hg] Tony Szynkowski [facility] 12-22-2024 00:00-0500 Respiratory rate 18 /min Tony Szynkowski [facility] 12-21-2024 21:35-0500 Body temperature 97.88 [degF] Tony Szynkowski [facility] 12-21-2024 21:34-0500 Mean blood pressure 99 mm[Hg] Tony Szynkowski [facility] 12-21-2024 21:30-0500 Blood Pressure Location Tony Szynkowski [facility] 12-21-2024 21:30-0500 Heart rate 90 /min Tony Szynkowski [facility] 12-21-2024 21:15-0500 Body temperature 97.7 [degF] Tony Szynkowski [facility] 12-21-2024 21:15-0500 Mean blood pressure 103 mm[Hg] Tony Szynkowski [facility] 12-21-2024 21:15-0500 Respiratory rate 20 /min Tony Szynkowski [facility] 12-21-2024 21:05-0500 Respiratory rate 15 /min Tony Szynkowski [facility] 12-21-2024 20:55-0500 Respiratory rate 19 /min Tony Szynkowski [facility] 12-21-2024 20:40-0500 Body temperature 97.52 [degF] Tony Szynkowski [facility] 12-21-2024 20:35-0500 Respiratory rate 9 /min Tony Alva [facility] 12-21-2024 09:37-0500 Heart rate 108 /min Tonydwight Alva [facility] Encounters Encounter Date Encounter Type Care Provider Facility Start: 06-02-2025 End: 06-02-2025 Patient encounter procedure Garret Tarango DO Work Phone: [facility] Comment on above: Left ankle pain, uns pecified chronicity (Primary Dx) Start: 06-02-2025 End: 06-02-2025 ambulatory GARRET Davis BROWN Not Available Start: 06-02-2025 End: 06-02-2025 ambulatory GARRET Davis BROWN Not Available Start: 03-31-2025 End: 03-31-2025 Patient encounter procedure Garret Tarango DO Work Phone: [facility] Comment on above: Left ankle pain, uns pecified chronicity (Primary Dx) Start: 03-31-2025 End: 03-31-2025 ambulatory GARRET Davis BROWN Not Available Start: 03-31-2025 End: 03-31-2025 ambulatory GARRET Davis BROWN Not Available Start: 02-28-2025 End: 02-28-2025 Patient encounter procedure Garret Tarango DO Work Phone: [facility] Comment on above: Left ankle pain, uns pecified chronicity (Primary Dx) Start: 02-28-2025 End: 02-28-2025 ambulatory GARRET Susan BROWN Not Available Start: 02-28-2025 End: 02-28-2025 ambulatory GARRET A BROWN Not Available Start: 01-31-2025 End: 01-31-2025 ambulatory GARRET A BROWN Not Available Start: 01-31-2025 End: 01-31-2025 Patient encounter procedure Garret Davis Brown DO Work Phone: [facility] Comment on above: Left ankle pain, uns pecified chronicity (Primary Dx) Start: 01-31-2025 End: 01-31-2025 ambulatory GARRET Davis CARMENCITA Not Available Start: 01-04-2025 End: 01-04-2025 Bamboo flowsheet Garret Davis Carmencita DO Work Phone: [facility] Start: 01-04-2025 End: 01-04-2025 Bamboo flowsheet Garret Davis Carmencita DO Work Phone: [facility] Start: 01-04-2025 End: 01-04-2025 ambulatory GARRET TARANGO Not Available Start: 12-22-2024 End: 12-22-2024 Clinisync Result Encounter Garret Davis Carmencita DO Work Phone: [facility] Unsolic[facility] Start: 12-22-2024 End: 12-22-2024 Clinisync Result Encounter Garret Davis Carmencita DO Work Phone: [facility] Start: 12-21-2024 End: 12-22-2024 Clinisync Result Encounter Garret Tarango DO Work Phone: [facility] Start: 12-21-2024 End: 12-22-2024 Clinisync Result Encounter Garret Davis Carmencita DO Work Phone: [facility] Start: 12-21-2024 End: 12-22-2024 ambulatory [place]: 12-21-2024 Emergency department patient visit Dar Leo [place] Start: 12-21-2024 End: 12-22-2024 Observation Tony Alva [facility] Start: 03-14-2018 End: 03-14-2018 Patient encounter procedure ARGENIS SORENSON Facility: Procedures Date Procedure Procedure Detail Performing Clinician Start: 06-02-2025 Radex ankle complete minimum 3 views Garret Tarango DO Work Phone: Start: 03-31-2025 Radex ankle complete minimum 3 views Garret Tarango DO Work Phone: Start: 02-28-2025 Radex ankle complete minimum 3 views Garret Tarango DO Work Phone: Start: 01-31-2025 Radex ankle complete minimum 3 views Garret Tarango DO Work Phone: Start: 12-22-2024 [facility] [place] W/ AUTO DIFF J pamela Tarango DO Work Phone: Start: 12-22-2024 Open reduction of fracture of ankle with internal fixation Tony Nida Start: 12-21-2024 XR ANKLE 2 VIEWS LEFT J pamela Susan Tarango DO Work Phone: Plan of Treatment Date Care Activity Detail Author Start: 07-04-2025 Influenza vaccination Influenza Vacc ine (#1) [facility] Start: 06-02-2025 End: 06-02-2025 Patient encounter procedure 06/02/2025 10:00 AM EDT Office Visit [facility] [address] [place] [phone] Garret Tarango DO [address] [place] [address] [facility] Start: 03-31-2025 End: 03-31-2025 Patient encounter procedure 03/31/2025 9:45 AM EDT Office Visit [facility] [address] [place] [id number] Garret Tarango DO [address] [place] [address] [facility] Start: 01-04-2025 End: 01-04-2025 Patient encounter procedure 01/04/2025 11:15 AM EST Office Visit [facility] [address] [place] [place] [phone] Garret Tarango DO [address] [place] [address] Arrived [facility] Comment on above: Arrived Start: 1998 Screening for malign ant neoplasm of breast Mammogram [facility] Start: 1960 Screening for malign ant neoplasm of colon [facility] Immunizations Immunization Date Immunization Notes Care Provider Fa roxy 09-11-2024 influenza virus vacc ine, unspecified formulation Garret Tarango DO Work Phone: [facility] Payers Date Payer Category Payer Medicare [id number] 2024 Medicare (Managed Care) [id number]. [id number] 2024 Unknown [id number] 2023 Medicare MEDICARE [id number] 1959 Unknown [id number] 1958 Unknown [id number] [id number]. 593 1958 Unknown [id number] 2.840.1.523544.3.579.2. 72 1958 Unknown [id number] 2.16.840.1.392885.3.579.2. 727 1958 Unknown [id number] 2.16.840.1.083895.3.579.2. 727 1958 Unknown [id number] 2.16.840.1.572952.3.579.2. 727 1958 Unknown [id number] 2.16.840.1.931235.3.579.2. 1259 1958 Unknown [id number] 2.16.840.1.135618.3.579.2. 1258 1958 Unknown [id number] 2.16.840.1.577856.3.579.2. 1258 1958 Unknown [id number] 2.16.840.1.882301.3.579.2. 1258 1958 Unknown [id number] 2.16.840.1.049918.3.579.2. 1258 1958 Unknown [id number] 2.16.840.1.633288.3.579.2. 1258 1958 Unknown [id number] 2.16.840.1.556383.3.579.2. 1258 1958 Unknown [id number] 2.16.840.1.524080.3.579.2. 1258 1958 Unknown [id number] 2.16.840.1.330842.3.579.2. 1258 1958 Unknown [id number] 2.16.840.1.592047.3.579.2. 9 Social History Date Type Detail Facility Tobacco smoking stat [facility] Tobacco smoking consumption unknown [facility] Start: 1960 Sex assigned at Not on file [facility] Start: 01-31-2025 End: 06-02-2025 Gender identity Not on file [facility] Start: 12-21-2024 Tobacco smoking status Heavy t obacco smoker (finding) [facility] Start: 01-04-2025 [facility] History of tobacco use Cigarette Smoker [facility] Start: 01-04-2025 Tobacco use and exposure Smokeless tobacco non-user [facility] Start: 01-31-2025 End: 06-02-2025 Alcoholic beverage intake Ex-drinker (finding) [facility] Start: 01-31-2025 End: 06-02-2025 History of Social function [facility] Medical Equipment Procedure Code Equipment Code Equipment Origin al Text Equipment Identifier Dates ANKLE FRACTURE O Garret Schroeder DO 12/21/24 Unknown Ankle L FDA Start: 12-21-2024 ANKLE FRACTURE O Garret Schroeder DO 12/21/24 Unknown Ankle L FDA Start: 12-21-2024 ANKLE FRACTURE O Garret Schroeder DO 12/21/24 Unknown Ankle L FDA Start: 12-21-2024 ANKLE FRACTURE O Garret Schroeder DO 12/21/24 Unknown Ankle L FDA Start: 12-21-2024 ANKLE FRACTURE O Garret Schroeder DO 12/21/24 Unknown Ankle L FDA Start: 12-21-2024 Functional Status Date Assessment Result Facility 12-21-2024 Functional Status No [facility] 12-21-2024 Functional Status [facility] Clinical Notes 12-21-2024 to 06-02-2025 Garret Susan Carmencita DO - 06/02/2025 10:00 AM EDKenney Tarango, DO - 03/31/2025 9:45 AM Harry Tarango DO - 02/28/2025 10:45 AM Harry Tarango, DO - 01/31/2025 10:45 AM EDT Note Date & Type Note Facility 06-02-2025 History of Present illness Narrative @[email or web address]@ Marily Epps Janki is a 65 y.o. female who presents for Follow-up of the Left Ankle HPI: History of Present Illness The patient is a 65-year-old female who is 5.5 months status post open reduction and internal fixation (ORIF) of the left ankle, with the surgery having been performed on 12/21/2024. She was unable to obtain a bone stimulator due to insurance rejection. She reports that her mobility has improved, and she no longer requires the use of a supportive brace. Her walking ability has also shown significant improvement. SUBJECTIVE: MEDICATIONS: Current Outpatient Medications Medication Instructions aspirin 81 MG EC tablet Every 24 hours atorvastatin (Lipitor) 80 MG tablet Breztri Aerosphere 160-9-4.8 MCG/ACT aerosol INHALE 2 PUFFS TWICE DAILY FOR 30 DAYS budesonide-formoterol (Symbicort) 160-4.5 MCG/ACT inhaler Every 12 hours hydroCHLOROthiazide (HYDRODiuril) 25 MG tablet levalbuterol (Xopenex) 45 MCG/ACT inhaler Every 6 hours levothyroxine (Synthroid, Levoxyl) 200 MCG tablet ALLERGIES: No Known Allergies SURGICAL HISTORY: Past Surgical History: Procedure Laterality Date BREAST LUMPECTOMY ORIF ANKLE FRACTURE Left 12/21/2024 [facility] FAMILY HISTORY: Family History Problem Relation Name Age of Onset Mental illness Mother Stroke Father SOCIAL HISTORY: Social History Tobacco Use Smoking status: Every Day Types: Cigarettes Smokeless tobacco: Never Vaping Use Vaping status: Never Used Substance Use Topics Alcohol use: Not Currently Drug use: Never Depression: Not on file REVIEW OF SYMPTOMS: Review of Systems The review of systems, history and current medications list are all reviewed today. OBJECTIVE: Visit Vitals Ht 5' 3 Wt 160 lb BMI 28.34 kg/m Smoking Status Every Day BSA 1.8 m Physical Exam Alert and oriented, no acute distress. Mood and affect are appropriate. General: The patient is ambulating independently wearing slip-on athletic shoes which are not very supportive. She also has an elastic brace on the left ankle today. Integumentary: The incisions are benign and well healed. There is no erythema, no ecchymosis. Gait: Nonantalgic Left foot and ankle: Swelling has significantly decreased. 5 out of 5 plantar flexion, dorsiflexion, 5 out of 5 inversion, eversion, negative anterior drawer, negative talar tilt. Excellent range of motion. The foot is well perfused. Ortho Exam Results Imaging Three views of the left ankle, AP/lateral/mortise, [...] the mortise. The syndesmosis is well aligned. ASSESSMENT AND PLAN: I reviewed the history, physical exam, diagnostic studies, and diagnosis with the patient. Assessment & Plan 1. Status post ORIF left ankle: She is 5.5 months status post ORIF of the left ankle. She is advised to continue monitoring her progress and to contact the clinic if any problems arise. No further appointments are scheduled at this time. She should give it a full year from the surgery date to assess the final outcome. The use of a bone stimulator was discussed, but it was not obtained due to insurance rejection, and healing is progressing well without it. The importance of supportive footwear was discussed. Follow up prn. A total of 20 to 29 minutes was spent on this patient encounter which included chart review, check in, nurse triage, history taking, physical examination, diagnostic study review, patient counseling and discussion, entering information into the patient's medical record, and coordinating patient care Diagnoses and all orders for this visit: Left ankle pain, unspecified chronicity - XR ankle 3+ views left Garret Tarango D.O. Attestation This note was created using voice recognition through [employer]. documented in this encounter [facility] 03-31-2025 History of Present illness Narrative Images from the original note were not included. @[email or web address]@ Marily Epps Janki is a 64 y.o. female who presents for Post-op of the Left Ankle HPI: History of Present Illness The patient is 14.5 weeks status post ORIF of the left ankle. The surgery was performed on 12/21/2024. She has been utilizing a brace for support but expresses discomfort due to the presence of numerous strings and straps. She prefers to wrap the area for comfort. SUBJECTIVE: MEDICATIONS: Current Outpatient Medications Medication Instructions aspirin 81 MG EC tablet Every 24 hours atorvastatin (Lipitor) 80 MG tablet Sleep.FM 160-9-4.8 MCG/ACT aerosol INHALE 2 PUFFS TWICE DAILY FOR 30 DAYS budesonide-formoterol (Symbicort) 160-4.5 MCG/ACT inhaler Every 12 hours hydroCHLOROthiazide (HYDRODiuril) 25 MG tablet levalbuterol (Xopenex) 45 MCG/ACT inhaler Every 6 hours levothyroxine (Synthroid, Levoxyl) 200 MCG tablet ALLERGIES: No Known Allergies SURGICAL HISTORY: Past Surgical History: Procedure Laterality Date BREAST LUMPECTOMY ORIF ANKLE FRACTURE Left 12/21/2024 [facility] FAMILY HISTORY: Family History Problem Relation Name Age of Onset Mental illness Mother Stroke Father SOCIAL HISTORY: Social History Tobacco Use Smoking status: Every Day Types: Cigarettes Smokeless tobacco: Never Vaping Use Vaping status: Never Used Substance Use Topics Alcohol use: Not Currently Drug use: Never Depression: Not on file REVIEW OF SYMPTOMS: Review of Systems The review of systems, history and current medications list are all reviewed today. OBJECTIVE: Visit Vitals Ht 5' 3 Wt 160 lb BMI 28.34 kg/m Smoking Status Every Day BSA 1.8 m Physical Exam Alert and oriented, no acute distress. Mood and affect are appropriate. Ambulating independently. Gait is nonantalgic. Left ankle: 5 out of 5 plantar flexion and dorsiflexion, well-healed surgical incisions, decreasing swelling, negative anterior drawer test, negative talar tilt test, negative squeeze test, strong inversion and eversion, strong DF/PF. Foot well perfused Ortho Exam Results Three views of the left ankle, AP/lateral/mortise, taken today and saved to the permanent medical record. Increased callus at fibula fracture. Fracture line at medial malleolus still present. Syndesmosis aligned, narrowing at lateral tibiotalar joint ASSESSMENT AND PLAN: I reviewed the history, physical exam, diagnostic studies, and diagnosis with the patient. Assessment & Plan 1. Post-operative status following open reduction and internal fixation (ORIF) of the left ankle, currently at 14.5 weeks: An Exogen bone stimulator will be authorized to facilitate the healing process, particularly on the medial aspect of the ankle. Continue with home exercises to maintain strength and range of motion. The bone stimulator should be used for 20 minutes on the medial aspect and 20 minutes on the lateral aspect of the ankle, or as directed to ensure comprehensive treatment. Follow-up Follow up in 2 months with repeat x-rays. A total of 20 to 29 minutes was spent on this patient encounter which included chart review, check in, nurse triage, history taking, physical examination, diagnostic study review, patient counseling and discussion, entering information into the patient's medical record, and coordinating patient care Diagnoses and all orders for this visit: Left ankle pain, unspecified chronicity - XR ankle 3+ views left Garret Tarango D.O. Attestation This note was created using voice recognition through [employer]. documented in this encounter [facility] 02-28-2025 History of Present illness Narrative Images from the original note were not included. @KELLEY@ Marily Clemons is a 64 y.o. female who presents for Post-op of the Left Ankle (Sx 12/21/24) HPI: History of Present Illness The patient is 10 weeks status post open reduction and internal fixation (ORIF) of the left ankle, with the surgery having been performed on 12/21/2024. She is eager to transition out of her current boot. At home, the boot is rarely utilized, and a satisfactory level of comfort is reported. However, mild soreness in the ankle is experienced towards the end of the day. Rehabilitation exercises have been performed independently, and formal rehabilitation has been declined. Consideration is being given to acquiring footwear that provides enhanced ankle support. SUBJECTIVE: MEDICATIONS: Current Outpatient Medications Medication Instructions aspirin 81 MG EC tablet Every 24 hours atorvastatin (Lipitor) 80 MG tablet Breztri Aerosphere 160-9-4.8 MCG/ACT aerosol INHALE 2 PUFFS TWICE DAILY FOR 30 DAYS budesonide-formoterol (Symbicort) 160-4.5 MCG/ACT inhaler Every 12 hours hydroCHLOROthiazide (HYDRODiuril) 25 MG tablet levalbuterol (Xopenex) 45 MCG/ACT inhaler Every 6 hours levothyroxine (Synthroid, Levoxyl) 200 MCG tablet ALLERGIES: No Known Allergies SURGICAL HISTORY: Past Surgical History: Procedure Laterality Date BREAST LUMPECTOMY ORIF ANKLE FRACTURE Left 12/21/2024 [facility] REVIEW OF SYMPTOMS: The review of systems, history and current medications list are all reviewed today. OBJECTIVE: Visit Vitals Ht 5' 3 Wt 160 lb BMI 28.34 kg/m Smoking Status Every Day BSA 1.8 m Physical Exam Left ankle: incisions are benign and very well healed. There is mild swelling, but this continues to decrease. No blisters, abrasions, or erythema are present. Strong plantar flexion, dorsiflexion, strong inversion, eversion. Negative anterior drawer, negative talar tilt, negative Homans. Others: Neurovascular status is unchanged. Results Imaging Three views of the left ankle, AP/lateral/mortise, taken today and saved to the permanent medical record. Fractures unchanged in position. Hardware intact. Mortise and syndesmosis well aligned. ASSESSMENT AND PLAN: I reviewed the history, physical exam, diagnostic studies, and diagnosis with the patient. Assessment & Plan 1. Post-operative status following open reduction and internal fixation (ORIF) of the left ankle: The boot may be discontinued. A brace will be provided today for use during activities involving extensive walking or yard work. An x-ray will be scheduled in 4 weeks to assess the healing process. If complete healing is not observed, a bone stimulator may be considered. Diagnoses and all orders for this visit: Left ankle pain, unspecified chronicity - XR ankle 3+ views left Garret Tarango D.O. Attestation This note was created using voice recognition through [employer]. documented in this encounter [facility] 01-31-2025 History of Present illness Narrative Images from the original note were not included. @[email or web address]@ Marily Epps Janki is a 64 y.o. female who presents for Post-op of the Left Ankle (Sx 12/21/24) HPI: History of Present Illness The patient is a 6-week status post open reduction and internal fixation (ORIF) of the left ankle, with the surgery having been performed on 12/21/2024. She has expressed readiness to initiate ambulation. She possesses a boot, which she did not bring to today's appointment. She has been engaging in motion exercises and perceives no necessity for physical therapy at this juncture. She reports a sensation of being able to feel the hardware medially and inquires if this will resolve over time. She brought her medications to the clinic today because only one of them was recorded in her chart, and she could not remember the other two. SUBJECTIVE: MEDICATIONS: Current Outpatient Medications Medication Instructions albuterol HFA 90 mcg/act inhaler INHALE 2 PUFFS NEEDED 4 TIMES DAILY for 25 days aspirin 81 MG EC tablet Every 24 hours atorvastatin (Lipitor) 80 MG tablet TAKE 1 TABLET BY MOUTH EVERY DAY for 90 days budesonide-formoterol (Symbicort) 160-4.5 MCG/ACT inhaler Every 12 hours hydroCHLOROthiazide (HYDRODiuril) 25 MG tablet TAKE 1 TABLET BY MOUTH EVERY DAY IN THE MORNING FOR 30 DAYS for 90 days levalbuterol (Xopenex) 45 MCG/ACT inhaler Every 6 hours levothyroxine (Synthroid, Levoxyl) 200 MCG tablet TAKE 1 TABLET BY MOUTH EVERY DAY IN THE MORNING ON EMPTY STOMACH FOR 90 DAYS for 90 ALLERGIES: No Known Allergies SURGICAL HISTORY: Past Surgical History: Procedure Laterality Date BREAST LUMPECTOMY ORIF ANKLE FRACTURE Left 12/21/2024 [facility] REVIEW OF SYMPTOMS: The review of systems, history and current medications list are all reviewed today. OBJECTIVE: Visit Vitals Ht 5' 3 Wt 160 lb BMI 28.34 kg/m Smoking Status Every Day BSA 1.8 m Physical Exam Using a knee scooter. LEFT ANKLE Incisions well healed. Swelling decreasing. Active ankle ROM is excellent. Negative homans. Negative anterior drawer, negative talar tilt. Foot well perfused Results Imaging Three views of the left ankle, AP/lateral/mortise, taken today and saved to the permanent medical record. Hardware intact. Mortise and syndesmosis in good alignment. Fractures healing appropriately. ASSESSMENT AND PLAN: I reviewed the history, physical exam, diagnostic studies, and diagnosis with the patient. Assessment & Plan 1. Post-operative status following open reduction and internal fixation of the left ankle. She has been maintaining mobility in her ankle, which is commendable. She was advised to utilize her boot for ambulation upon returning home. If she can ambulate without experiencing pain while wearing the boot, the use of additional support such as a walker or cane is not necessary. However, if discomfort arises during weight-bearing activities, she should modulate the amount of weight applied. A regimen of rehabilitation exercises was recommended to enhance strength and improve range of motion. A printout of foot and ankle exercises was provided for her reference. It was discussed that the hardware may need to be removed if it causes discomfort, but this is not commonly required. Follow-up The patient is scheduled for a follow-up visit in 4 weeks with xrays, during which the possibility of transitioning from the boot to a brace will be evaluated. Diagnoses and all orders for this visit: Left ankle pain, unspecified chronicity - XR ankle 3+ views left Garret Tarango D.O. Attestation This note was created using voice recognition through [employer]. documented in this encounter [facility] 12-27-2024 Note History and Physical TRAUMA CONSULT / H&P Patient Name: MARILY CLEMONS Admission Date: 12/21/2024 09:32:35 -------- BASIC INJURY INFORMATION: Level of activation: Category 2 Trauma Mode of transport: [facility] Mechanism of injury: Fall HISTORY OF PRESENT INJURY: MARILY CLEMONS is a 64 Years-old Female with a PMHx of hypothyroidism Patient was admitted to trauma service after falling outside and fracturing her ankle. Patient was taken to the OR by orthopedics. Patient reports pain is well-controlled. Nonweightbearing left lower extremity. PRIMARY SURVEY: Airway: Intact Breathing: Normal Breath Sounds: Breath sounds equal bilaterally. Circulation: Pulses: Normal Skin: Warm, Dry Normal skin color, texture, and turgor. No rashes or lesions. Disability: Pupils: PEERL GCS: Best Eyes: 4 Best Verbal: 5 Best Motor: 6 Total: 15 SECONDARY SURVEY: Vital Signs (last 24 hrs) Last Charted Temp Axillary 36.6 DegC (DEC 22 11:02) Heart Rate Monitored 96 bpm (DEC 22 11:03) Resp Rate 20 br/min (DEC 21 21:15) SBP H 151 mmHg (DEC 22 11:) DBP H 90 mmHg (FEB 19 11:02) Weight 80.8 kg (DEC 22 06:00) BMI 30.23 (DEC 21 21:30) Neurologic: Alert and oriented, appropriate, moves all extremities. Strength symmetrical, no sensory deficits. HEENT: Head: No lacerations, bony step-offs, or abrasions; midface stable to palpation. Eyes: PERRLA, conjunctiva/corneas without lesions., EOM intact. Ears: No hemotympanum, no letty-auricular ecchymosis, no drainage. Nose: Septum midline, no crepitus with motion. No bloody drainage. Throat: Oral cavity without trauma. No malocclusion Neck: No midline tenderness. No step off or deformities. No lacerations/wounds. Pulmonary: External exam: No crepitus or pain with palpation; no abrasions or contusions. Lung exam: Breath sounds clear, symmetrical; no wheezes, rales or consolidation. Cardiovascular: Rectal: Rectal tone not examined. No gross blood noted. Pelvis/Perineum: Pelvis is stable to palpation. Musculoskeletal: Back/Spine: Thoracolumbar spinal column non tender. Extremities: Left lower extremity in splint. Neurovascularly intact. PAST MEDICAL HISTORY: Hypothyroid. PAST SURGICAL HISTORY: ORIF - Open reduction of fracture of ankle with internal fixation, Left: 12/22/24 PRE-ADMISSION MEDICATIONS: albuterol: 2 inh, Inhalation, q6hr, PRN (Wheezing) atorvastatin: 80 mg = 1 tab(s), Oral, Daily hydrochlorothiazide: 25 mg = 1 tab(s), Oral, Daily levalbuterol: 2 inh, Inhalation, q6hr, PRN (Wheezing), INHALE 2 PUFFS BY MOUTH EVERY 6 HOURS NEEDED levothyroxine: 200 mcg = 1 tab(s), Oral, Daily, TAKE 1 TABLET BY MOUTH EVERY DAY IN THE MORNING ON EMPTY STOMACH FOR 90 DAYS ALLERGIES: Allergies (1) Active Severity Reaction No Known Medication Allergies None Documented SOCIAL HISTORY: Social & Psychosocial History Social History Alcohol Denies Alcohol Use Substance Abuse Denies Substance Abuse Tobacco Medium Risk 10 or more cigarettes (1/2 pack or more)/day in last 30 days Tobacco Use:. Psychosocial History No active psychosocial history has been recorded FAMILY HISTORY: No family history recorded. REVIEW OF SYSTEMS: All organ systems are reviewed. Pertinent positive and negative findings as mentioned in the HPI. BASIC LABS: Last 24 Hours Basic Metabolic Panel: Hematology: : () HGB: 12.8 (12/22/24) : () : () : () : () : () : () : () : () Creatinine: 1.1 (12/22/24) : () Additional - Last 24 Hours A/G Ratio: 1.3 (12/21/24) AGAP: 15 (12/22/24) Albumin Lvl: 4.2 (12/21/24) Alk Phos: 169 (12/21/24) ALT: 24 (12/21/24) AST: 28 (12/21/24) Basophil Absolute: 0.0 (12/22/24) Basophil Auto: 0.2 (12/22/24) Bili Total: 0.7 (12/21/24) BUN: 16 (12/22/24) BUN/Creat Ratio: 11 (12/21/24) Calcium Lvl: 8.2 (12/22/24) Chloride: 104 (12/22/24) CO2: 21 (12/22/24) eGFR: 55 (12/22/24) Eos Absolute: 0.0 (12/22/24) Eos Auto: 0.0 (12/22/24) Globulin: 3.2 (12/21/24) Glucose Cap: 117 (12/22/24) Glucose Lvl: 106 (12/21/24) Glucose Random: 114 (12/22/24) Hct: 37.4 (12/22/24) INR: 0.95 (12/22/24) Lymph Absolute: 1.3 (12/22/24) Lymph Auto: 13.1 (12/22/24) Magnesium: 1.6 (12/22/24) MCH: 36.3 (12/22/24) MCHC: 34.3 (12/22/24) MCV: 105.8 (12/22/24) Adams Absolute: 0.3 (12/22/24) Adams Auto: 3.5 (12/22/24) MPV: 8.5 (12/22/24) Neutro Absolute: 8.0 (12/22/24) Neutro Auto: 83.2 (12/22/24) Phosphorus: 3.5 (12/22/24) Platelet: 287.0 (12/22/24) POC Device SN: [id number] (12/22/24) POC User ID: [id number] (12/22/24) POC Username: POC Username (12/22/24) Potassium Lvl: 4.6 (12/22/24) PT: 10.6 (12/22/24) PTT: 29.5 (12/22/24) RBC: (more content not included)... [facility] Comment on above: Result Comment: Elec tronically Signed By: Suellen Lopez PA-C\.br\Date and Time Signed: 12/22/24 11:46 EST\.br\Electronically Co-Signed By: Suellen Lopez PA-C\.br\Date and Time Co-Signed: 12/22/24 15:46 EST\.br\Electronically Co-Signed By: Nida RODRIGUEZ, Tony Bragg\.br\Date and Time Co-Signed: 12/27/24 07:48 EST 12-23-2024 Note Progress Note-Physic christina Patient: MARILY CLEMONS Age: 64 years Sex: Female : 1960 Associated Diagnoses: None Author: Rosalio Gaitan Jr., DO Postoperative Information Postoperative disposition: Postoperative disposition: Home. Optimetrix number: Optimetrix number [phone]. Anesthetic utilized: General. Physical Examination Vital Signs 12/21/2024 21:35 EST Temperature Axillary 36.6 DegC 12/21/2024 21:34 EST Systolic Blood Pressure 128 mmHg Diastolic Blood Pressure 85 mmHg Mean Arterial Pressure, Monitered 99 mmHg 12/21/2024 21:30 EST Temperature Oral 36.6 DegC Peripheral Pulse Rate 90 bpm Systolic Blood Pressure 128 mmHg Diastolic Blood Pressure 85 mmHg Blood Pressure Location Left arm SpO2 94 % 12/21/2024 21:15 EST Temperature Temporal Artery 36.5 DegC Heart Rate Monitored 96 bpm Respiratory Rate Monitored 20 br/min Systolic Blood Pressure 133 mmHg Diastolic Blood Pressure 88 mmHg Mean Arterial Pressure, Cuff 103 mmHg SpO2 97 % 12/21/2024 21:05 EST Heart Rate Monitored 93 bpm Respiratory Rate Monitored 15 br/min Systolic Blood Pressure 132 mmHg Diastolic Blood Pressure 80 mmHg Mean Arterial Pressure, Cuff 97 mmHg SpO2 92 % 12/21/2024 21:00 EST Hourly Rounding Yes Promise to Return Yes 12/21/2024 20:55 EST Heart Rate Monitored 92 bpm Respiratory Rate Monitored 19 br/min Systolic Blood Pressure 123 mmHg Diastolic Blood Pressure 96 mmHg HI Mean Arterial Pressure, Cuff 105 mmHg SpO2 93 % 12/21/2024 20:50 EST Heart Rate Monitored 104 bpm HI Respiratory Rate Monitored 15 br/min Systolic Blood Pressure 113 mmHg Diastolic Blood Pressure 80 mmHg Mean Arterial Pressure, Cuff 91 mmHg SpO2 94 % (Modified) 12/21/2024 20:45 EST Heart Rate Monitored 113 bpm HI Respiratory Rate Monitored 24 br/min Systolic Blood Pressure 123 mmHg Diastolic Blood Pressure 83 mmHg Mean Arterial Pressure, Cuff 96 mmHg SpO2 94 % 12/21/2024 20:40 EST Temperature Temporal Artery 36.4 DegC Heart Rate Monitored 110 bpm HI Respiratory Rate Monitored 14 br/min Systolic Blood Pressure 112 mmHg Diastolic Blood Pressure 88 mmHg Mean Arterial Pressure, Cuff 96 mmHg SpO2 94 % Pain Assessment: Controlled, Pain Assessment 12/21/2024 21:15 EST Numeric Pain Scale 0 = No pain Numeric Pain Score 0 12/21/2024 20:40 EST Pain Symptoms Self Report No, able to self report Primary Pain Location Ankle Primary Pain Laterality Left Primary Pain Radiation No Numeric Pain Scale 0 = No pain Numeric Pain Score 0 . General: Awake, Alert, Appropriate. Respiratory: Adequate air exchange, Non-labored. Cardiovascular: Stable, Normal peripheral perfusion. Neurological: Neurologic exam at baseline. No changes.. Assessment Anesthetic outcome No anesthetic complications noted. No nausea/vomiting. Review / Management Condition: Stable. Plan Transfer/Discharge: Transfer/Discharge Discharge when meets criteria ( From PACU to Ambulatory Surgery Unit, and To home ). [facility] Comment on above: Result Comment: Elec tronically Signed By: Rosalio Gaitan Jr., DO\.rupert\Date and Time Signed: 12/23/24 06:44 EST 12-22-2024 Note Patient Education - Text [place], [place] [facility] DISCHARGE INSTRUCTIONS: ANKLE FRACTURE POSTOPERATIVE ACTIVITY: Rest ??? you should continue to rest the ankle for at least the next five to seven days to promote healing and decrease the possibility of swelling. Crutches or walker should be continued to be used with non-weight bearing as instructed in physical therapy. Walking should be only as necessary for the next several days when swelling may be prominent. To maximize comfort, try to keep the ankle elevated to at least the level of your heart. This should help decrease discomfort and swelling. Swelling and bruising are not uncommon after ankle fractures. The development or worsening of numbness and tingling may be a sign of excess swelling and should be promptly reported to your surgeon. Driving is legal ??? but not recommended. It is legal for you to drive but driving is not advisable until at least your first office visit. You must be certain that you can maintain control of your vehicle in any and all situations before you make the decision to resume driving. MEDICATION: You will receive a prescription for pain medication to be used as needed, after your hospital discharge. Any pain medication can cause light-headedness, as well as stomach upset, therefore it is recommended that pain medication be taken with food. Do not operate machinery, drive, or drink alcohol while you are using the pain medication. Unfortunately, the pain medication will not eliminate pain, but hopefully will make the pain more tolerable. Please report any reactions to the pain medication promptly. Aspirin 81 mg Enteric Coated daily for 6 weeks for blood clot prevention. To minimize the chance of infection or wound healing problems, please keep the cast and bandage dry until the first dressing change in the office. Please report any problems, questions, or concerns prior to our office evaluation. Garret Tarango, DO [facility] [address] [place] [address] Reviewed: 10-26 [facility] 12-22-2024 Note Interdisciplinary No te - PT PT evaluation completed with an AM-PAC six clicks score of . Pt. completes bed mobility at Mod I level and sit<>stand transfers with close supervision. Pt. ambulates 16 ft. x 2 in room with CGA, FWW and good maintenance of L LE NWBing status. Pt. requires frequent cueing to reduce her speed with ambulation to increase safety. Pt. requires [place] to safely negotiate 4 steps with R sided hand rail and axillary crutch. Mild LOB noted with stair negotiation. Pt. has 4 steps to enter her home. Due to assist required with stairs, pt. is not functionally safe to return home at this time. Will attempt stair negotiation later today and update recommendations as appropriate. PT to follow daily. Pt. will need FWW and axillary crutch to return home safely. [facility] 12-21-2024 Hospital Discharge instructions Patient Education 12/21/2024 21:14:49 [facility] - Ankle Fracture Post Op (Custom) [place], [place] [facility] DISCHARGE INSTRUCTIONS: ANKLE FRACTURE POSTOPERATIVE ACTIVITY: Rest you should continue to rest the ankle for at least the next five to seven days to promote healing and decrease the possibility of swelling. Crutches or walker should be continued to be used with non-weight bearing as instructed in physical therapy. Walking should be only as necessary for the next several days when swelling may be prominent. To maximize comfort, try to keep the ankle elevated to at least the level of your heart. This should help decrease discomfort and swelling. Swelling and bruising are not uncommon after ankle fractures. The development or worsening of numbness and tingling may be a sign of excess swelling and should be promptly reported to your surgeon. Driving is legal but not recommended. It is legal for you to drive but driving is not advisable until at least your first office visit. You must be certain that you can maintain control of your vehicle in any and all situations before you make the decision to resume driving. MEDICATION: You will receive a prescription for pain medication to be used as needed, after your hospital discharge. Any pain medication can cause light-headedness, as well as stomach upset, therefore it is recommended that pain medication be taken with food. Do not operate machinery, drive, or drink alcohol while you are using the pain medication. Unfortunately, the pain medication will not eliminate pain, but hopefully will make the pain more tolerable. Please report any reactions to the pain medication promptly. Aspirin 81 mg Enteric Coated daily for 6 weeks for blood clot prevention. To minimize the chance of infection or wound healing problems, please keep the cast and bandage dry until the first dressing change in the office. Please report any problems, questions, or concerns prior to our office evaluation. Garret Tarango, DO [facility] [address] [place], [place] [address] Reviewed: 10-26 Follow Up Care 12/21/2024 09:33:31 With:MARIS PUGH Address: [address] [place] [address]- [phone] Business (1) When:12/29/2024 11:00:00 With:Garret Tarango Address: [address] [place] [address]- Business (1) When:01/04/2025 11:00:00 [facility] 12-21-2024 Note Patient Education - Text [place], [place] [facility] DISCHARGE INSTRUCTIONS: ANKLE FRACTURE POSTOPERATIVE ACTIVITY: Rest ??? you should continue to rest the ankle for at least the next five to seven days to promote healing and decrease the possibility of swelling. Crutches or walker should be continued to be used with non-weight bearing as instructed in physical therapy. Walking should be only as necessary for the next several days when swelling may be prominent. To maximize comfort, try to keep the ankle elevated to at least the level of your heart. This should help decrease discomfort and swelling. Swelling and bruising are not uncommon after ankle fractures. The development or worsening of numbness and tingling may be a sign of excess swelling and should be promptly reported to your surgeon. Driving is legal ??? but not recommended. It is legal for you to drive but driving is not advisable until at least your first office visit. You must be certain that you can maintain control of your vehicle in any and all situations before you make the decision to resume driving. MEDICATION: You will receive a prescription for pain medication to be used as needed, after your hospital discharge. Any pain medication can cause light-headedness, as well as stomach upset, therefore it is recommended that pain medication be taken with food. Do not operate machinery, drive, or drink alcohol while you are using the pain medication. Unfortunately, the pain medication will not eliminate pain, but hopefully will make the pain more tolerable. Please report any reactions to the pain medication promptly. Aspirin 81 mg Enteric Coated daily for 6 weeks for blood clot prevention. To minimize the chance of infection or wound healing problems, please keep the cast and bandage dry until the first dressing change in the office. Please report any problems, questions, or concerns prior to our office evaluation. Garret Tarango DO [facility] [address] [place] [id number] Reviewed: 10-26 [facility] 12-21-2024 Note Consultation Note Patient: MARILY CLEMONS Age: 64 years Sex: Female : 1960 Associated Diagnoses: None Author: Garret Tarango DO Chief Complaint 12/21/2024 16:40 EST I fell on ice and I broke my foot 12/21/2024 9:37 EST Pt fell this AM. Ankle deformity to left ankle. Pulses intact. ASA 81 daily. no LOC. No head/neck pain. History of Present Illness Marily is a 64-year-old female who slipped on the ice earlier today while she was out in the community. She had immediate pain in the left ankle and had to wait for a bystander in order to contact emergency services. She was brought to the hospital and found to have gross deformity to the left ankle with tenting of the skin. The ankle was provisionally reduced by the emergency department staff and placed into a splint. She denies any other injuries at the time of her fall. She denies head injury or loss of consciousness. She typically ambulates independently and lives at home with her . She is complaining of pain primarily about the medial aspect of the ankle. Review of Systems Denies pain in the left hip or knee. Denies acute pain in the right lower extremity or bilateral upper extremities. Denies chest pain, shortness of breath, abdominal pain, nausea, vomiting. Health Status Allergies: Allergic Reactions (Selected) No Known Medication Allergies Current medications: Home Medications (5) Active Albuterol (Eqv-Proventil HFA) 90 mcg/inh inhalation aerosol 2 inh, PRN, Inhalation, q6hr atorvastatin 80 mg Tab 80 mg = 1 tab(s), Oral, Daily hydrochlorothiazide 25 mg Tab 25 mg = 1 tab(s), Oral, Daily levalbuterol CFC free 45 mcg/inh Inh Aer w/adapter 2 inh, PRN, Inhalation, q6hr levothyroxine 200 mcg (0.2 mg) Tab 200 mcg = 1 tab(s), Oral, Daily Problem list: All Problems Tobacco use / SNOMED CT 8337429870 / Confirmed HTN (hypertension) / SNOMED CT 9657229714 / Confirmed Hypothyroidism / SNOMED CT 87856620 / Confirmed High cholesterol / SNOMED CT 61359365 / Confirmed Smoker / SNOMED CT 208995561 / Confirmed Added secondary to documentation in Social History. Histories Past Medical History: No active or resolved past medical history items have been selected or recorded. Family History: No family history items have been selected or recorded. Procedure history: No active procedure history items have been selected or recorded. Social History Social & Psychosocial Habits Alcohol 12/21/2024 Risk Assessment: Denies Alcohol Use Substance Abuse 12/21/2024 Risk Assessment: Denies Substance Abuse Tobacco 12/21/2024 Tobacco Use: 10 or more cigarettes (12/21/2024 Risk Assessment: Medium Risk . Physical Examination Alert and oriented, no acute distress Head is atraumatic Hearing intact to conversational tones Normal conjugate gaze Left lower extremity: Splint is in place. Able to wiggle the toes. Sensation is intact over the toes. Brisk capillary refill. No effusion to the left knee and no tenderness to palpation at the left knee. Right lower extremity: Moves the ankle, knee, hip without difficulty. Review / Management Results review: Lab results 12/21/2024 11:54 EST WBC 12.3 E9/L HI HGB 15.2 gm/dL Hct 42.5 % Platelet 307.0 E9/L PT 10.1 second(s) INR 0.90 NA PTT 33.3 second(s) eGFR 70 mL/min/1.73 m2 . IMAGIN views of the left ankle, AP/lateral, taken today are reviewed. There is a transverse displaced fracture of the medial malleolus. There is a comminuted fracture of the distal fibula with widening of the syndesmosis. The talus is subluxed laterally approximately 50%. There is a small displaced fracture of the posterior malleolus. Impression and Plan 64-year-old female with a trimalleolar fracture/dislocation, left ankle. I reviewed the history, physical exam, radiographs, and diagnosis with the patient. Recommendation is made for operative invention. We will proceed with open reduction internal fixation possible external fixation of the left ankle later today. I explained the possibility of requiring 2 surgeries for definitive fixation of the fractures. Continue with n.p.o. status. I reviewed the risks, benefits, complications, and expectations of surgery. The risks include, but are not limited to, the risk of anesthesia, infection, neurovascular injury, DVT, PE, and . The patient will be admitted to the hospital under the hospitalist service after surgery. A CT scan of the left ankle will be obtained to better delineate the fracture pattern and for presurgical planning. Thank you for the consultation. A total of 45-59 minutes was spent on this patient encounter including chart review, history taking, physical exam, diagnostic study review, patient counseling and discussion, entering information into the patient???s medical record, and coordinating care. CT scan of the left ankle is reviewed. The bones of the foot appear intact. The distal tibia is tenting t (more content not included)... [facility] Comment on above: Result Comment: Elec tronically Signed By: Garret Tarango DO\.br\Date and Time Signed: 12/21/24 18:24 EST 12-21-2024 Note Progress Note-Physic christina Patient: MARILY CLEMONS Age: 64 years Sex: Female : 1960 Associated Diagnoses: None Author: Rosalio Gaitan Jr., DO Preoperative Information Anesthesia Preop Info NPO since midnight Anesthesia history: Patient history: No prior anesthetic problems. Informed consent: Signed by patient. Re-evaluation prior to induction: Initial evaluation reviewed: No significant change. Health Status Allergies: Allergic Reactions (Selected) No Known Medication Allergies, Allergies (1) Active Severity Reaction No Known Medication Allergies None Documented Current medications: (Selected) Inpatient Medications Ordered HYDROmorphone 1 mg/mL injectable solution: 0.4 mg = 0.4 mL, Injection, IV Push, q4min PRN Pain for 5 dose(s), Stop date Limited # of times, Routine, Start date 12/21/24 15:59:00 EST, 12/21/24 15:59:00 EST Sodium Chloride 0.9% IV Vanessa 1000 mL 1,000 mL: 1,000 mL, IV, 150 mL/hr, Routine, Start date 12/21/24 15:00:00 EST, 6.7 hour(s), Total volume (mL): 1,000, 77.4 kg, 1.85, m2 Zofran 4 mg/2 mL Injection: 4 mg = 2 mL, Injection, IV Push, Once, Stop date 12/21/24 15:53:00 EST, STAT, Start date 12/21/24 15:53:00 EST, 12/21/24 15:53:00 EST cefazolin additive + Sodium Chloride 0.9% intravenous solution 50 mL: 2 gm = 1 EA, Powder-Inj, IV Piggyback, PREOP, Routine, Start date 12/21/24 15:00:00 EST, 100 mL/hr, Infuse over 30 minute(s) morphine 4 mg/mL Inj: 4 mg = 1 mL, Injection, IV Push, Once, Stop date 12/21/24 15:53:00 EST, STAT, Start date 12/21/24 15:53:00 EST, 12/21/24 15:53:00 EST promethazine additive 12.5 mg + Sodium Chloride 0.9% IV Vanessa 50 mL (INT) 50 mL: IV Piggyback, Once PRN Nausea/Vomiting, Routine, Start date 12/21/24 15:59:00 EST, 151.5 mL/hr, Infuse over 20 minute(s), 12/21/24 15:59:00 EST, No qualifying data available , Medications (6) Active Scheduled: (3) ceFAZolin + Sodium Chloride 0.9% Minibag 50 mL 2 gm 1 EA, IV Piggyback, PREOP morphine 4 mg/mL preservative-free [F] 4 mg 1 mL, IV Push, Once ondansetron 2 mg/mL Inj [F] 4 mg 2 mL, IV Push, Once Continuous: (1) Sodium Chloride 0.9% 1,000 mL 1,000 mL, IV, 150 mL/hr PRN: (2) HYDROmorphone 1 mg/mL SOLN [F] 0.4 mg 0.4 mL, IV Push, q4min promethazine 12.5 mg + Sodium Chloride 0.9% 50 mL 12.5 mg 0.5 mL, IV Piggyback, Once Problem list: All Problems Smoker / SNOMED CT 210993490 / Confirmed Added secondary to documentation in Social History. Tobacco use / SNOMED CT 4074446016 / Confirmed Histories Past Medical History: No active or resolved past medical history items have been selected or recorded. Procedure history: No active procedure history items have been selected or recorded. Social History Social & Psychosocial Habits Alcohol 12/21/2024 Risk Assessment: Denies Alcohol Use Substance Abuse 12/21/2024 Risk Assessment: Denies Substance Abuse Tobacco 12/21/2024 Tobacco Use: 10 or more cigarettes (12/21/2024 Risk Assessment: Medium Risk . Physical Examination Vital Signs 12/21/2024 14:00 EST Heart Rate Monitored 104 bpm HI Respiratory Rate Monitored 18 br/min Systolic Blood Pressure 111 mmHg Diastolic Blood Pressure 78 mmHg Mean Arterial Pressure, Cuff 89 mmHg SpO2 96 % 12/21/2024 13:00 EST Heart Rate Monitored 110 bpm HI Respiratory Rate Monitored 10 br/min Systolic Blood Pressure 100 mmHg Diastolic Blood Pressure 84 mmHg Mean Arterial Pressure, Cuff 89 mmHg SpO2 96 % 12/21/2024 12:00 EST Heart Rate Monitored 109 bpm HI Respiratory Rate Monitored 14 br/min Systolic Blood Pressure 128 mmHg Diastolic Blood Pressure 90 mmHg HI Mean Arterial Pressure, Cuff 103 mmHg SpO2 96 % 12/21/2024 11:00 EST Heart Rate Monitored 87 bpm Respiratory Rate Monitored 20 br/min Systolic Blood Pressure 101 mmHg Diastolic Blood Pressure 83 mmHg Mean Arterial Pressure, Cuff 89 mmHg SpO2 98 % 12/21/2024 10:33 EST Heart Rate Monitored 93 bpm Respiratory Rate Monitored 13 br/min Systolic Blood Pressure 120 mmHg Diastolic Blood Pressure 90 mmHg HI Mean Arterial Pressure, Cuff 100 mmHg SpO2 96 % 12/21/2024 10:16 EST Heart Rate Monitored 80 bpm Respiratory Rate Monitored 28 br/min Systolic Blood Pressure 125 mmHg Diastolic Blood Pressure 102 mmHg HI Mean Arterial Pressure, Cuff 110 mmHg SpO2 98 % 12/21/2024 10:10 EST Heart Rate Monitored 87 bpm Respiratory Rate Monitored 28 br/min Systolic Blood Pressure 126 mmHg Diastolic Blood Pressure 107 mmHg HI Mean Arterial Pressure, Cuff 113 mmHg SpO2 98 % 12/21/2024 10:05 EST Heart Rate Monitored 98 bpm Respiratory Rate Monitored 13 br/min Systolic Blood Pressure 130 mmHg Diastolic Blood Pressure 107 mmHg HI Mean Arterial Pressure, Cuff 115 mmHg SpO2 97 % 12/21/2024 10:00 EST Heart Rate Monitored 105 bpm HI Respiratory Rate Monitored 46 br/min Systolic Blood Pressure 130 mmHg Diastolic Blood Pressure 107 mmHg HI Mean Arterial Pressure, Cuff 115 mmHg SpO2 (more content not included)... [facility] Comment on above: Result Comment: Elec tronically Signed By: Rosalio Gaitan Jr., DO\.br\Date and Time Signed: 12/21/24 16:21 EST 12-21-2024 Evaluation + Plan note Extrac theresa from: Title:ORTHO Consult Author:Garret Tarango DO Ignacio e:12/21/24 Patient: MARILY CLEMONS Age: 64 years Sex: Female : 1960 Associated Diagnoses: None Author: Garret Tarango DO Chief Complaint 12/21/2024 16:40 EST I fell on ice and I broke my foot 12/21/2024 9:37 EST Pt fell this AM. Ankle deformity to left ankle. Pulses intact. ASA 81 daily. no LOC. No head/neck pain. History of Present Illness Marily is a 64-year-old female who slipped on the ice earlier today while she was out in the community. She had immediate pain in the left ankle and had to wait for a bystander in order to contact emergency services. She was brought to the hospital and found to have gross deformity to the left ankle with tenting of the skin. The ankle was provisionally reduced by the emergency department staff and placed into a splint. She denies any other injuries at the time of her fall. She denies head injury or loss of consciousness. She typically ambulates independently and lives at home with her . She is complaining of pain primarily about the medial aspect of the ankle. Review of Systems Denies pain in the left hip or knee. Denies acute pain in the right lower extremity or bilateral upper extremities. Denies chest pain, shortness of breath, abdominal pain, nausea, vomiting. Health Status Allergies: Allergic Reactions (Selected) No Known Medication Allergies Current medications: Home Medications (5) Active Albuterol (Eqv-Proventil HFA) 90 mcg/inh inhalation aerosol 2 inh, PRN, Inhalation, q6hr atorvastatin 80 mg Tab 80 mg = 1 tab(s), Oral, Daily hydrochlorothiazide 25 mg Tab 25 mg = 1 tab(s), Oral, Daily levalbuterol CFC free 45 mcg/inh Inh Aer w/adapter 2 inh, PRN, Inhalation, q6hr levothyroxine 200 mcg (0.2 mg) Tab 200 mcg = 1 tab(s), Oral, Daily Problem list: All Problems Tobacco use / SNOMED CT 2238520519 / Confirmed HTN (hypertension) / SNOMED CT 3525681338 / Confirmed Hypothyroidism / SNOMED CT 26652299 / Confirmed High cholesterol / SNOMED CT 06763300 / Confirmed Smoker / SNOMED CT 540797813 / Confirmed Added secondary to documentation in Social History. Histories Past Medical History: No active or resolved past medical history items have been selected or recorded. Family History: No family history items have been selected or recorded. Procedure history: No active procedure history items have been selected or recorded. Social History Social & Psychosocial Habits Alcohol 12/21/2024Risk Assessment: Denies Alcohol Use Substance Abuse 12/21/2024Risk Assessment: Denies Substance Abuse Tobacco 12/21/2024 Tobacco Use: 10 or more cigarettes (12/21/2024Risk Assessment: Medium Risk . Physical Examination Alert and oriented, no acute distress Head is atraumatic Hearing intact to conversational tones Normal conjugate gaze Left lower extremity: Splint is in place. Able to wiggle the toes. Sensation is intact over the toes. Brisk capillary refill. No effusion to the left knee and no tenderness to palpation at the left knee. Right lower extremity: Moves the ankle, knee, hip without difficulty. Review / Management Results review: Lab results 12/21/2024 11:54 EST WBC 12.3 E9/L HI HGB 15.2 gm/dL Hct 42.5 % Platelet 307.0 E9/L PT 10.1 second(s) INR 0.90 NA PTT 33.3 second(s) eGFR 70 mL/min/1.73 m2 . IMAGIN views of the left ankle, AP/lateral, taken today are reviewed. There is a transverse displaced fracture of the medial malleolus. There is a comminuted fracture of the distal fibula with widening of the syndesmosis. The talus is subluxed laterally approximately 50%. There is a small displaced fracture of the posterior malleolus. Impression and Plan 64-year-old female with a trimalleolar fracture/dislocation, left ankle. I reviewed the history, physical exam, radiographs, and diagnosis with the patient. Recommendation is made for operative invention. We will proceed with open reduction internal fixation possible external fixation of the left ankle later today. I explained the possibility of requiring 2 surgeries for definitive fixation of the fractures. Continue with n.p.o. status. I reviewed the risks, benefits, complications, and expectations of surgery. The risks include, but are not limited to, the risk of anesthesia, infection, neurovascular injury, DVT, PE, and . The patient will be admitted to the hospital under the hospitalist service after surgery. A CT scan of the left ankle will be obtained to better delineate the fracture pattern and for presurgical planning. Thank you for the consultation. A total of 45-59 minutes was spent on this patient encounter including chart review, history taking, physical exam, diagnostic study review, patient counseling and discussion, entering information into the patient s medical record, and coordinating care. Addendum by Garret Tarango DO on December 21, 2024 18:[address] scan of the left ankle is reviewed. T he bones of the foot appear intact. The distal tibia is tenting the skin medially. Extracted from: Title:ANES Pre-operative Note - Adult Author:Rosalio Tong Jr., DO Date:12/21/24 Patient: MARILY CLEMONS Age: 64 years Sex: Female : 1960 Associated Diagnoses: None Author: Rosalio Gaitan Jr., DO Preoperative Information Anesthesia Preop Info NPO since midnight Anesthesia history: Patient history: No prior anesthetic problems. Informed consent: Signed by patient. Re-evaluation prior to induction: Initial evaluation reviewed: No significant change. Health Status Allergies: Allergic Reactions (Selected) No Known Medication Allergies, Allergies (1) ActiveSeverityReaction No Known Medication AllergiesNone Documented Current medications: (Selected) Inpatient Medications Ordered HYDROmorphone 1 mg/mL injectable solution: 0.4 mg = 0.4 mL, Injection, IV Push, q4min PRN Pain for 5 dose(s), Stop date Limited # of times, Routine, Start date 12/21/24 15:59:00 EST, 12/21/24 15:59:00 EST Sodium Chloride 0.9% IV Vanessa 1000 mL 1,000 mL: 1,000 mL, IV, 150 mL/hr, Routine, Start date 12/21/24 15:00:00 EST, 6.7 hour(s), Total volume (mL): 1,000, 77.4 kg, 1.85, m2 Zofran 4 mg/2 mL Injection: 4 mg = 2 mL, Injection, IV Push, Once, Stop date 12/21/24 15:53:00 EST, STAT, Start date 12/21/24 15:53:00 EST, 12/21/24 15:53:00 EST cefazolin additive + Sodium Chloride 0.9% intravenous solution 50 mL: 2 gm = 1 EA, Powder-Inj, IV Piggyback, PREOP, Routine, Start date 12/21/24 15:00:00 EST, 100 mL/hr, Infuse over 30 minute(s) morphine 4 mg/mL Inj: 4 mg = 1 mL, Injection, IV Push, Once, Stop date 12/21/24 15:53:00 EST, STAT, Start date 12/21/24 15:53:00 EST, 12/21/24 15:53:00 EST promethazine additive 12.5 mg + Sodium Chloride 0.9% IV Vanessa 50 mL (INT) 50 mL: IV Piggyback, Once PRN Nausea/Vomiting, Routine, Start date 12/21/24 15:59:00 EST, 151.5 mL/hr, Infuse over 20 minute(s), 12/21/24 15:59:00 EST, No qualifying data available , Medications (6) Active Scheduled: (3) ceFAZolin + Sodium Chloride 0.9% Minibag 50 mL 2 gm 1 EA, IV Piggyback, PREOP morphine 4 mg/mL preservative-free [F] 4 mg 1 mL, IV Push, Once ondansetron 2 mg/mL Inj [F] 4 mg 2 mL, IV Push, Once Continuous: (1) Sodium Chloride 0.9% 1,000 mL 1,000 mL, IV, 150 mL/hr PRN: (2) HYDROmorphone 1 mg/mL SOLN [F] 0.4 mg 0.4 mL, IV Push, q4min promethazine 12.5 mg + Sodium Chloride 0.9% 50 mL 12.5 mg 0.5 mL, IV Piggyback, Once Problem list: All Problems Smoker / SNOMED CT 119065978 / Confirmed Added secondary to documentation in Social History. Tobacco use / SNOMED CT 2713664852 / Confirmed Histories Past Medical History: No active or resolved past medical history items have been selected or recorded. Procedure history: No active procedure history items have been selected or recorded. Social History Social & Psychosocial Habits Alcohol 12/21/2024Risk Assessment: Denies Alcohol Use Substance Abuse 12/21/2024Risk Assessment: Denies Substance Abuse Tobacco 12/21/2024 Tobacco Use: 10 or more cigarettes (12/21/2024Risk Assessment: Medium Risk . Physical Examination Vital Signs 12/21/2024 14:00 EST Heart Rate Monitored 104 bpm HI Respiratory Rate Monitored 18 br/min Systolic Blood Pressure 111 mmHg Diastolic Blood Pressure 78 mmHg Mean Arterial Pressure, Cuff 89 mmHg SpO2 96 % 12/21/2024 13:00 EST Heart Rate Monitored 110 bpm HI Respiratory Rate Monitored 10 br/min Systolic Blood Pressure 100 mmHg Diastolic Blood Pressure 84 mmHg Mean Arterial Pressure, Cuff 89 mmHg SpO2 96 % 12/21/2024 12:00 EST Heart Rate Monitored 109 bpm HI Respiratory Rate Monitored 14 br/min Systolic Blood Pressure 128 mmHg Diastolic Blood Pressure 90 mmHg HI Mean Arterial Pressure, Cuff 103 mmHg SpO2 96 % 12/21/2024 11:00 EST Heart Rate Monitored 87 bpm Respiratory Rate Monitored 20 br/min Systolic Blood Pressure 101 mmHg Diastolic Blood Pressure 83 mmHg Mean Arterial Pressure, Cuff 89 mmHg SpO2 98 % 12/21/2024 10:33 EST Heart Rate Monitored 93 bpm Respiratory Rate Monitored 13 br/min Systolic Blood Pressure 120 mmHg Diastolic Blood Pressure 90 mmHg HI Mean Arterial Pressure, Cuff 100 mmHg SpO2 96 % 12/21/2024 10:16 EST Heart Rate Monitored 80 bpm Respiratory Rate Monitored 28 br/min Systolic Blood Pressure 125 mmHg Diastolic Blood Pressure 102 mmHg HI Mean Arterial Pressure, Cuff 110 mmHg SpO2 98 % 12/21/2024 10:10 EST Heart Rate Monitored 87 bpm Respiratory Rate Monitored 28 br/min Systolic Blood Pressure 126 mmHg Diastolic Blood Pressure 107 mmHg HI Mean Arterial Pressure, Cuff 113 mmHg SpO2 98 % 12/21/2024 10:05 EST Heart Rate Monitored 98 bpm Respiratory Rate Monitored 13 br/min Systolic Blood Pressure 130 mmHg Diastolic Blood Pressure 107 mmHg HI Mean Arterial Pressure, Cuff 115 mmHg SpO2 97 % 12/21/2024 10:00 EST Heart Rate Monitored 105 bpm HI Respiratory Rate Monitored 46 br/min Systolic Blood Pressure 130 mmHg Diastolic Blood Pressure 107 mmHg HI Mean Arterial Pressure, Cuff 115 mmHg SpO2 96 % 12/21/2024 9:55 EST Heart Rate Monitored 117 bpm HI Respiratory Rate Monitored 17 br/min Systolic Blood Pressure 129 mmHg Diastolic Blood Pressure 102 mmHg HI Mean Arterial Pressure, Cuff 111 mmHg SpO2 96 % 12/21/2024 9:53 EST Heart Rate Monitored 125 bpm HI Respiratory Rate Monitored 16 br/min Systolic Blood Pressure 165 mmHg HI Diastolic Blood Pressure 149 mmHg HI Mean Arterial Pressure, Cuff 154 mmHg SpO2 96 % 12/21/2024 9:50 EST Heart Rate Monitored 126 bpm HI Respiratory Rate Monitored 21 br/min Systolic Blood Pressure 165 mmHg HI Diastolic Blood Pressure 149 mmHg HI Mean Arterial Pressure, Cuff 154 mmHg SpO2 93 % 12/21/2024 9:45 EST Heart Rate Monitored 94 bpm Respiratory Rate Monitored 55 br/min Systolic Blood Pressure 146 mmHg HI Diastolic Blood Pressure 109 mmHg HI Mean Arterial Pressure, Cuff 121 mmHg SpO2 98 % 12/21/2024 9:37 EST Temperature Oral 36.9 DegC Peripheral Pulse Rate 108 bpm HI Respiratory Rate 16 br/min Systolic Blood Pressure 146 mmHg HI Diastolic Blood Pressure 98 mmHg HI SpO2 97 % Measurements from flowsheet : Measurements 12/21/2024 9:37 EST Height/Length Measured 160.02 cm Height/Length Dosing 160.0 cm Weight Dosing 77.4 kg Body Mass Index Measured 30.23 kg/m2 Weight Measured 77.4 kg Airway: Mallampati classification: II (soft palate, fauces, uvula visible). Respiratory: Lungs are clear to auscultation, Respirations are non-labored. Cardiovascular: Regular rhythm. Review / Management Results review: Lab results 12/21/2024 11:54 EST WBC 12.3 E9/L HI RBC 4.1 E12/L LOW HGB 15.2 gm/dL Hct 42.5 % MCV 104.1 fL HI MCH 37.2 pg HI MCHC 35.7 gm/dL RDW 13.2 % Platelet 307.0 E9/L MPV 8.3 fL Neutro Auto 77.8 % HI Lymph Auto 15.0 % Adams Auto 5.4 % Eos Auto 1.3 % Basophil Auto 0.5 % Neutro Absolute 9.6 E9/L HI Lymph Absolute 1.8 E9/L Adams Absolute 0.7 E9/L Eos Absolute 0.2 E9/L Basophil Absolute 0.1 E9/L PT 10.1 second(s) INR 0.90 NA PTT 33.3 second(s) Glucose Lvl 106 mg/dL BUN 10 mg/dL Creatinine 0.9 mg/dL eGFR 70 mL/min/1.73 m2 BUN/Creat Ratio 11 Sodium Lvl 139 mmol/L Potassium Lvl 3.8 mmol/L Chloride 103 mmol/L CO2 26 mmol/L AGAP 14 mEq/L Calcium Lvl 9.9 mg/dL Alk Phos 169 Int._Unit/L HI ALT 24 Int._Unit/L AST 28 Int._Unit/L Total Protein 7.4 gm/dL Albumin Lvl 4.2 gm/dL Globulin 3.2 gm/dL A/G Ratio 1.3 Bili Total 0.7 mg/dL . Radiology results: * Final Report * Reason For Exam Chest pain POWERSCRIBE REPORT IMPRESSION: LEFT LUNG BASE INFILTRATE AND/OR ATELECTASIS. EXAM: XR Chest Single View History: Chest pain Technique: Portable AP view of the chest. Comparison: None available Findings: The cardiomediastinal silhouette is within normal limits. Patchy left lung base opacities. No pneumothorax or pleural effusion. No acute osseous abnormality. Ordering Provider: Dar Bailey Signature Line FINAL REPORT Dictated: 12/21/2024 1:19 pm Jose David Chinchilla DO Signed (Electronic Signature): 12/21/2024 1:19 pm Signed by: Jose David Chinchilla DO Transcribed by: JAKE Technologist: SAMUEL RAD REPORT This document has an image Result type:XR Chest Single View Result date:December 21, 2024 12:27 EST Result status:Auth (Verified) Result title:XR Chest Single View Performed by:Jose David Chinchilla DO on December 21, 2024 13:19 EST Verified by:Jose David Chinchilla DO on December 21, 2024 13:19 EST Encounter info:[id number], Elie - Addy, Observation, 12/21/2024 - . ECG interpretation: SINUS TACHYCARDIA POSSIBLE LEFT ATRIAL ENLARGEMENT [-0.1mV P WAVE IN V1/V2] LEFT ANTERIOR FASCICULAR BLOCK [QRS AXIS <= -45, QR IN I, RS IN II] POSSIBLE ANTERIOR MYOCARDIAL INFARCTION [30 ms Q WAVE IN V3/V4, OR R < 0.2 mV IN V4], OF INDETERMINATE AGE . Plan [place] [employer] (ASA) physical status classification: . Anesthetic Preoperative Plan: Anesthesia General. Addendum by Rosalio Gaitan Jr., DO toro Vu[facility] 2024 16:21 EST Class III Extracted from: Title:ED Note Author:Dar Bailey DO Date:12/04 06/27 Fracture dislocation of ankl e (S82.892F: Other fracture of unspecified lower leg, initial encounter for closed fracture) Orders: propofol, 200 mg = 20 mL, Emulsion, IV, Once, Stop date 12/21/24 9:36:00 EST, STAT, Start date 12/21/24 9:36:00 EST, 12/21/24 9:36:00 EST CBC w/ Auto Diff Comprehensive Metabolic Panel CT Lower Extremity w/o Contrast Left ECG 12 Lead Adult PT & PTT XR Ankle 3+ Views Left XR Chest Single View [facility] Evaluation note* Diagnosis Left ankle pain, unspecified chronicity- [facility] Left ankle pain, unspecified chronicity- [facility] Diagnosis Left ankle pain, unspecified chronicity- [facility] Narrative No data available for this section [facility] Progress note No data available for this section [facility] Summary Purpose Family History No Family History Records FoundNo Family History Records FoundNo Family History Records FoundNo Family History Records FoundNo Family History Records FoundNo Family History Records FoundNo Family History Records FoundNo Family History Records FoundNo Family History Records FoundNo Family History Records FoundNo Family History Records FoundNo Family History Records FoundNo Family History Records FoundNo Family History Records FoundNo Family History Records FoundNo Family History Records FoundNo Family History Records FoundNo Family History Records FoundNo Family History Records Found No data available for this section No Family History Records FoundNo Family History Records Found Advance Directives No Advanced Directives Records FoundNo Advanced Directives Records FoundNo Advanced Directives Records FoundNo Advanced Directives Records FoundNo Advanced Directives Records FoundNo Advanced Directives Records FoundNo Advanced Directives Records FoundNo Advanced Directives Records FoundNo Advanced Directives Records FoundNo Advanced Directives Records FoundNo Advanced Directives Records FoundNo Advanced Directives Records FoundNo Advanced Directives Records FoundNo Advanced Directives Records FoundNo Advanced Directives Records FoundNo Advanced Directives Records FoundNo Advanced Directives Records FoundNo Advanced Directives Records FoundNo Advanced Directives Records FoundNo Advanced Directives Records FoundNo Advanced Directives Records Found Additional Source Comments INFORMATION SOURCE (unrecogn ized section and content) DATE CREATED AUTHOR 02/11/2020 [facility] DATE CREATED AUTHOR AUTHOR'S ORGANIZ ATION 12/25/2021 [facility] DATE CREATED AUTHOR AUTHOR'S ORGANIZ ATION 12/22/2024 [facility] DATE CREATED AUTHOR AUTHOR'S ORGANIZ ATION 12/23/2024 [facility] DATE CREATED AUTHOR AUTHOR'S ORGANIZ ATION 12/24/2024 [facility] DATE CREATED AUTHOR AUTHOR'S ORGANIZ ATION 12/28/2024 [facility] DATE CREATED AUTHOR AUTHOR'S ORGANIZ ATION 06/04/2025 [facility] EPIC Patient Care team informatio n (unrecognized section and content) 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 Relationship Specialty Start Date End Date Maris Pugh MD [address] [place] [address] Referring Physician Family Medicine 01/04/25 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 Relationship Specialty Start Date End Date Maris Pugh MD [address] [place] [address] Referring Physician Family Medicine 01/04/25 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 Relationship Specialty Start Date End Date Maris Pugh MD [address] [place] [address] Referring Physician Family Medicine 01/04/25 Reason for Visit (unrecogniz ed section and content) Reason Comments Post-op Sx 12/21/24 Reason Comments Post-op Reason Comments Follow-up FOR RECORDS PERTAINING TO PATIENTS WHO ARE [...] ON THE PRIMARY CLINICAL RECORDS. [facility] provides no warranty or guarantee of the accuracy or completeness of information in this document.
[2025-06-23 11:33] LABS: Hematocrit 42.4 % (36.0-48.0); Hemoglobin 14.7 g/dL (12.0-16.0); Immature Granulocytes Abs Auto 0.02 10^3/uL (0.00-0.03); Immature Granulocytes Pct Auto 0.2 % (0.0-0.5); Lymphocytes Absolute Auto 2.6 10^3/uL (1.2-3.8); Mean Corpuscular HGB Conc 34.7 g/dL (29.9-35.2); Mean Corpuscular Hemoglobin 35.9 pg (26.7-34.0); Mean Corpuscular Volume 103.4 fL (81.0-99.0); Platelet Count 294 10^3/uL (150-450); Red Blood Count 4.10 10^6/uL (4.20-5.40); White Blood Count 11.0 10^3/uL (4.0-11.0)
[2025-06-23 12:02] LABS: Alanine Aminotransferase 53 U/L (14-59); Albumin Globulin Ratio 0.9; Albumin Level 3.7 g/dL (3.4-5.0); Alkaline Phosphatase 285 U/L (46-116); Anion Gap 9.8; Aspartate Amino Transferase 39 U/L (15-37); Blood Urea Nitrogen 10.0 mg/dL (7.0-18.0); Calcium 10.0 mg/dL (8.5-10.1); Carbon Dioxide 28.7 mmol/L (21.0-32.0); Chloride 105 mmol/L (98-107); Cholesterol 203 mg/dL (<=200); Estimated GFR (African America >60 (>=60 mL/min/1.73m^2); Estimated GFR (Non-African Ame >60 (>=60 mL/min/1.73m^2); Free T3 3.32 pg/mL (2.18-3.98); Globulin 4.0 g/dL; Glucose 99 mg/dL (74-106); HDL Cholesterol 112 mg/dL (40-60); Potassium 3.5 mmol/L (3.5-5.1); Sodium 140 mmol/L (136-145); Thyroid Stimulating Hormone <0.007 uIU/mL (0.358-3.740); Total Protein 7.7 g/dL (6.4-8.2); Triglycerides 113 mg/dL (<=150); VLDL CHOLESTEROL 22.6 mg/dL
[2025-06-23 12:39] LABS: Iron 123.0 ug/dL (50.0-170.0)
== END 2025-06-23 09:52 | disposition home or self-care (01) ==
PROVIDERS: PCP Nurse Practitioner Family; Visit Provider Nurse Practitioner Family
DX: Z00.00 Encounter for general adult medical examination without abnormal findings (principal); E78.5 Hyperlipidemia, unspecified; R73.09 Other abnormal glucose; D64.9 Anemia, unspecified; R53.83 Other fatigue; E55.9 Vitamin D deficiency, unspecified
CPT/HCPCS: 36415; 80053; 80061; 82306; 83036; 83525; 83540; 84436; 84443; 84481; 85025

== ENCOUNTER 2025-08-11 08:13 | Outpatient (OUT) | payer MEDICARE, SELFPAY ==
--- OUTSIDE RECORDS SUMMARY | 2025-08-11 08:25 | XMS_ITS | CCD ---
Author Organization [facility] Care Team Providers Care Mill Set Up Name Role Phone ARGENIS SORENSON Admitting Unavailable ARGENIS SORENSON Attending Unavailable [facility], DOCTOR Primary Care Unavailable ARGENIS SORENSON Consulting Unavailable Dar Bailey Attending Unavailable Tony Alva Attending Tony Fermin Admitting Unavailkerry e oNel Primary Care Provider MARIS Webber Primary Care Physician [phone] Tony Alva Admitting Tony Fermin Attending Maris Webber MD GARRET TARANGO Attending Unavailable GARRET TARANGO Referring Unavailable CARMENCITA, GARRET Davis Referring Unavailable CARMENCITA, GARRET Davis Referring Unavailable CARMENCITA, GARRET Davis Attending Unavailable CARMENCITA, GARRET Davis Referring Unavailable CARMENCITA, GARRET Davis Attending Unavailable CARMENCITA, GARRET Davis Referring Unavailable CARMENCITA, GARRET Davis Attending Unavailable CARMENCITA, GARRET Davis Referring Unavailable CARMENCITA, GARRET A Referring Unavailable GARRET TARANGO Attending Unavailable Allergies Allergy Classification Reported Allergen(s) Allergy Type Date of Onset Reaction(s) Facility (4 sources) No Known Medication Allergies; Translations: [No Known Medication Allergies] Propensity to adverse reactions (disorder) [facility] Repository Medications Current Medications Medication Drug Class(es) [...] day(s), # 28 cap(s), Refills(s) 0, Pharmacy: [facility]/pharmacy #[id number], 160, cm, 12/21/24 9:39:00 EST, [...] day(s), # 20 tab(s), Refills(s) 0, Pharmacy: [facility]/pharmacy #[id number], 160, cm, 12/21/24 9:39:00 EST, Height/Length Dosing, 77.4, kg, 12/21/24 9:39:00 EST, Weight Dosing Start Date: 12/22/24 Stop Date: 12/27/24 Status: Ordered sennosides, intermediate 8.6 mg oral tablet (1 source) Start: take 1 tablet by mouth once daily at bedtime senna 8.6 mg Tab 8.6 mg = 1 tab(s), Oral, Once a day (at bedtime), # 20 tab(s), Refills(s) 0, Pharmacy: [facility]/pharmacy #[id number], 160, cm, 12/21/24 9:39:00 EST, Height/Length Dosing, 77.4, kg, 12/21/24 9:39:00 EST, Weight Dosing Start Date: 12/22/24 Status: Ordered Completed/Discontinued Medications Medication Drug Class(es) Dates Sig (Normalized) Sig (Original) [id number] 200 actuat albuterol 0.09 mg/actuat metered dose [...] the mortise. The syndesmosis is well aligned. [facility] Radiology Study observation (narrative) [facility] XR Ankle - left 3 [facility] Result: Three views of the left ankle, AP/lateral/mortise, taken today and saved to the permanent medical record. Increased callus at fibula fracture. Fracture line at medial malleolus still present. Syndesmosis aligned, narrowing at lateral tibiotalar joint [facility] Radiology Study observation (narrative) [facility] XR Ankle - left 3 [facility] Result: Three views of the left ankle, AP/lateral/mortise, taken today and saved to the permanent medical record. Fractures unchanged in position. Hardware intact. Mortise and syndesmosis well aligned. [facility] Radiology Study observation (narrative) [facility] XR Ankle - left 3 [facility] Result: Three views of the left ankle, AP/lateral/mortise, taken today and saved to the permanent medical record. Hardware intact. Mortise and syndesmosis in good alignment. Fractures healing appropriately. [facility] Radiology Study observation (narrative) [facility] EMS Documentationon 12-23-19 EMS Documentation Report Please click on link to see report Normal [facility] Comment on above: Result Comment: Miss ing Attachment - attachment exceeds size limitation [id number] Can be viewed in source system Main OR Intraoperative Recor don 12-23-2024 Main OR Intraoperative Record Main OR Intraoperative Record IntraOp Document Type FT Summary Primary Physician: Garret Tarango DO Finalized Date/Time: 12/23/24 07:38:51 Pt. Name: MARILY CLEMNOS/Sex: 1960 Female Med Rec #: [id number] Physician: Nida RODRIGUEZ, Tony Bragg Financial #: [id number] Pt. Type: O Room/Bed: [place] [address] Admit/Disch: 12/21/24 09:32:35 - 12/22/24 17:10:00 Institution: [...] Role Performed Surgeon - Primary Anesthesiologist of MUSIC COPYIST/SA Record Time In 12/21/24 18:38:00 12/21/24 18:31:00 12/21/24 18:31:00 Time Out 12/21/24 20:39:00 12/21/24 20:39:00 12/21/24 20:39:00 Procedure ANKLE FRACTURE ANKLE FRACTURE ANKLE FRACTURE ORIF(Left) ORIF(Left) ORIF(Left) Comments Last Modified By: Reyes Parker Terry T Sweene, Terry T 12/21/24 20:45:15 12/21/24 20:45:15 12/21/24 20:45:15 Entry 4 Entry 5 Entry 6 Case Attendee Reyes Parker Kendall R Kolb, Madelyn K Role Performed Homeopathic Doctor - Primary Scrub - Primary Customer Agent Time In 12/21/24 18:31:00 12/21/24 18:31:00 12/21/24 18:39:00 Time Out 12/21/24 20:39:00 12/21/24 20:39:00 12/21/24 20:39:00 Procedure ANKLE FRACTURE ANKLE FRACTURE ANKLE FRACTURE ORIF(Left) ORIF(Left) ORIF(Left) Comments Last Modified By: eRyes Parker Terry T Sweene, Terry T 12/21/24 [...] and tissue Entry 1 Skin Integrity Intact, [place], Warm, & Skin Abnormality Yes Dry Abnormality Location LEFT ANKLE Abnormality Type REDDENED ARE MEDIAL ASPECT OF LEFT ANKLE APPROXIMATELY 1 INCH DIAMETER Outcomes Met? Yes Last Modified By: Reyes Parker 12/21/24 19:18:11 Post-Care Text: The patient is free from signs and symptoms of injury caused by extraneous objects Patient Posit (more content not included)... Normal [facility] BUNon 12-22-2024 Urea nitrogen [Mass/Vol] 16 mg/dL Normal 5-21 [facility] Comment on above: Performed By: #### 2 [id number] #### [facility] Laboratory [address] [place] [address] CBC w/ Auto Diffon Basophils/100 WBC (Bld) 0.2 % Normal 0.0-2.0 [facility] Comment on above: Performed By: #### 2 [id number] #### [facility] Laboratory [address] [place] [address] Basophils/Leukocytes Auto (Bld) [Pure # fraction] 0.0 E9/L Normal 0.0-0.2 [facility] Comment on above: Performed By: #### 2 [id number] #### [facility] [address] [place] [address] Eosinophils (Bld) [#/Vol] 0.0 E9/L Normal 0.0-0.5 [facility] Comment on above: Performed By: #### 2 [id number] #### [facility] [address] [place] [address] Eosinophils/100 WBC (Bld) 0.0 % Normal 0.0-8.0 [facility] Comment on above: Performed By: #### 2 [id number] #### [place] [facility] [address] [place] [address] Erythrocyte distribution width (RBC) [Ratio] 13.4 % Normal 10.9-14.2 [facility] Comment on above: Performed By: #### 2 [id number] #### [facility] [address] [place] [address] Hematocrit (Bld) [Volume fraction] 37.4 % Normal 34.0-46.0 [facility] Comment on above: Performed By: #### 2 [id number] #### [facility] [address] [place] [address] Hemoglobin (Bld) [Mass/Vol] 12.8 g/dL Normal 12.0-16.0 [facility] Comment on above: Performed By: #### 2 [id number] #### [facility] [address] [place] [address] Lymphocytes (Bld) [#/Vol] 1.3 E9/L Normal 1.0-4.0 [facility] Comment on above: Performed By: #### 2 [id number] #### [facility] [address] [place] [address] Lymphocytes/100 WBC (Bld) 13.1 % Low 14.0-50.0 [facility] Comment on above: Performed By: #### 2 [id number] #### [facility] [address] [place] [address] MCH (RBC) [Entitic mass] 36.3 pg High 27.0-34.0 [facility] Comment on above: Performed By: #### 2 [id number] #### [facility] [address] [place] [address] MCHC (RBC) [Mass/Vol] 34.3 g/dL Normal 31.4-36.0 [facility] Comment on above: Performed By: #### 2 [id number] #### [facility] [address] [place] [address] MCV (RBC) [Entitic vol] 105.8 fL High 80.0-100.0 [facility] Comment on above: Performed By: #### 2 [id number] #### [facility] [address] [place] [address] Monocytes (Bld) [#/Vol] 0.3 E9/L Normal 0.2-1.0 [facility] Comment on above: Performed By: #### 2 [id number] #### [facility] [address] [place] [address] Neutrophils (Bld) [#/Vol] 8.0 E9/L High 2.0-7.5 [facility] Comment on above: Performed By: #### 2 [id number] #### [facility] [address] [place] [address] Neutrophils/100 WBC (Bld) 83.2 % High 36.0-75.0 [facility] Comment on above: Performed By: #### 2 [id number] #### [facility] [address] [place] [address] Platelet 287.0 E9/L Normal 150.0-500.0 [facility] Comment on above: Performed By: #### 2 [id number] #### [facility] [address] [place] [address] Platelet mean volume (Bld) [Entitic vol] 8.5 fL Normal 6.4-10.8 [facility] Comment on above: Performed By: #### 2 [id number] #### [facility] [address] [place] [address] RBC (Bld) [#/Vol] 3.5 E12/L Low 4.3-5.9 [facility] Comment on above: Performed By: #### 2 [id number] #### [facility] [address] [place] [address] WBC corrected for nucl RBC Auto (Bld) [#/Vol] 9.7 E9/L Normal 4.0-11.0 [facility] Comment on above: Performed By: #### 2 [id number] #### [facility] [address] [place] [address] CHEMISTRYOrdered By: Lab ROP User on 12-22-2024 Glucose [Mass/Vol] 117 mg/dL High 55 - 99 mg/dL FT POC Subsection Comment on above: Result Comment: Marco Antonio wagner RN/ POC Device SN [id number] 1 Invalid Interpretation Code [facility] POC Subsection POC Username ALANIS MEZA Invalid Interpretation Code [facility] POC Subsection Sodium [Moles/Vol] [id number] mmol/L Invalid Interpretation Code [facility] POC Subsection Glucose [Mass/Vol] 117 mg/dL High 55 - 99 mg/dL [facility] POC Subsection Comment on above: Result Comment: Marco Antonio wagner RN/ POC Device SN [id number] 1 Invalid Interpretation Code [facility] POC Subsection POC Username ALANIS MEZA Invalid Interpretation Code [facility] POC Subsection Sodium [Moles/Vol] 094086148 mmol/L Invalid Interpretation Code [facility] POC Subsection Glucose [Mass/Vol] 122 mg/dL High 55 - 99 mg/dL [facility] POC Subsection Comment on above: Result Comment: Marco Antonio wagner RN/ POC Device SN [id number] 1 Invalid Interpretation Code [facility] POC Subsection POC Username ALANIS MEZA Invalid Interpretation Code [facility] POC Subsection Sodium [Moles/Vol] 934271102 mmol/L Invalid Interpretation Code [facility] POC Subsection [...] 29.5 s Normal 25.1 - 36.5 second(s) [facility] Auto Coag Comment on above: Interpretive Data: [...] the same coagulation reagent and instrumentation as [facility]. Currently there are no coagulation studies available worldwide for children to 14 days, and no normal ranges. Heparin therapeutic range (represented by Anti-Factor Xa activity of 0.2 - 0.4 U/mL) corresponds to PTT of 56.6 - 109.0 sec. INR Coag (PPP) [Relative time] 0.95 {INR} Invalid Interpretation Code [facility] Auto Coag Comment on above: Interpretive Data: I NR results are specifically intended to assess patients stabilized on long-term Anticoagulation therapy suggested INR s Less Intensive Anticoagulation 2.0 3.0 Conventional Range 3.0 4.5 PT Coag (PPP) [Time] 10.6 s Normal 9.4 - 1 2.5 second(s) [facility] Auto Coag Comment on above: Interpretive Data: [...] the same coagulation reagent and instrumentation as [facility]. Currently there are no coagulation studies available worldwide for children to 14 days, and no normal ranges. Calciumon 12-22-2024 Calcium [Mass/Vol] 8.2 mg/dL Low 8.9-11.1 [facility] Comment on above: Performed By: #### 2 [id number] #### [facility] Laboratory [address] [place] [address] Capillary Glucose POCon 12-04 Glucose [Mass/Vol] 117 mg/dL High 55-99 [facility] Comment on above: Result Comment: Marco Antonio TEE Performed By: #### 2 [id number] #### [facility] [address] [place] [address] Glucose [Mass/Vol] 117 mg/dL High 55-99 [facility] Comment on above: Result Comment: Marco Antonio TEE Performed By: #### 2 [id number] #### [facility] [address] [place] [address] Glucose [Mass/Vol] 122 mg/dL High 55-99 [facility] Comment on above: Result Comment: Marco Antonio TEE Performed By: #### 2 [id number] #### [facility] [address] [place] [address] Creatinineon 12-22-2024 Creatinine [Mass/Vol] 1.1 mg/dL Normal 0.5-1.3 [facility] Comment on above: Performed By: #### 2 [id number] #### [facility] [address] [place] [address] Discharge Note-Nursingon Discharge Note-Nursing Discharge Note-Nursing MARILY LCEMONS :1960 Visit Date:12/21/2024 Inpatient Discharge Instructions Your [...] When: 01/04/2025 11:00 AM EST Where: [address] [place] [address]- Business (1) Follow Up with MARIS PUGH When: 12/29/2024 11:00 AM EST Where: [address] [place] [phone] Business (1) Medications What How Much When Instructions Next Dose New aspirin (aspirin 81 mg Oral EC Tab) 1 Tablets By Mouth Every day Duration: 6 Weeks Pickup at [facility]/pharmacy #[id number] 12/23 @9am New docusate (Colace 100 mg Cap) 1 Capsules By Mouth 2 times a day as needed for as needed for constipation Duration: 14 Days Pickup at [facility]/pharmacy #[id number] 9pm New oxycodone (oxyCODONE 5 mg Tab) 1 Tablets By Mouth Every 6 hours as needed for as needed for pain Duration: 5 Days Pickup at [facility]/pharmacy #[id number] Take as needed every 6 hours for pain. New senna (senna 8.6 mg Tab) 1 Tablets By Mouth Once a day (at bedtime) Pickup at [facility]/pharmacy #[id number] 9pm Unchanged albuterol (Albuterol (Eqv-Proventil [...] FOR 90 DAYS 12/23 @9am [id number] [address], [place] [id number] [phone] Test Results CBC BMP WBC: 9.7 E9/L [...] XP IMPLANT ST[employer] STEEL 12/22/2024 Education Materials [place], [place] [facility] DISCHARGE INSTRUCTIONS: ANKLE FRACTURE POSTOPERATIVE ACTIVITY: Rest ??? you should continue to rest the ankle for at least the next five to seven days to promote healing and decrease the possibility of swelling. Crutches (more content not included)... Normal [facility] CBC W/ AUTO DIFFon 12-04 EOSINOPHILS/100 LEUKOCYTES:NFR:PT:BLD :QN:AUTOMATED COUNT 0 % 0.0 - 8.0 % [facility] EOSINOPHILS:NCNC:PT:B LD:QN: 0 [facility] BASOPHILS/LEUKOCYTES: NFR.DF:PT:BLD:QN:AUTO MATED COUNT 0 [facility] ERYTHROCYTE MEAN CORPUSCULAR HEMOGLOBIN CONCENTRATION:MCNC:PT :RBC:QN 34.3 [facility] ERYTHROCYTE MEAN CORPUSCULAR HEMOGLOBIN:ENTMASS:PT :RBC:QN 36.3 pg High 27.0 - 34.0 pg [facility] ERYTHROCYTE MEAN CORPUSCULAR VOLUME:ENTVOL:PT:RBC: QN:AUTOMATED COUNT 105.8 fL High 80.0 - 100.0 fL [facility] ERYTHROCYTES:NCNC:PT: BLD:QN:AUTOMATED COUNT 3.5 Low [facility] HEMOGLOBIN:MCNC:PT:BL D:QN: 12.8 [facility] LEUKOCYTES 9.7 [facility] MONOCYTES:NCNC:PT:BLD :QN:AUTOMATED COUNT 0.3 [facility] NEUTROPHILS:NCNC:PT:B LD:QN:AUTOMATED COUNT 8 High [facility] Interpretation and review of laboratory results Abnormal [facility] LYMPHOCYTES:NCNC:PT:B LD:QN: 1.3 [facility] Platelets (Bld) [#/Vol] 287 10*3/uL [facility] Original Ordering Provider: DO [facility]ret [facility] Glucoseon 12-22-2024 Glucose [Mass/Vol] 114 mg/dL Normal 55-199 [facility] Comment on above: Performed By: #### 2 [id number] #### [facility] Laboratory [address] [place] [address] HEMATOLOGYOrdered By: SYSTEM SYSTEM on 12-22-2024 Basophils/100 [...] 12-22-2024 Inpatient Clinical Summary Inpatient Clinical Summary [address] [address] Clinical Summary Person Information: Name: MARILY CLEMONS Age: 64 Years : 1960 Sex: Female PCP: MARIS PUGH CNP Marital Status: Phone: [phone] Race: White Ethnicity: Non- or Language: Belgian Visit Id: Visit Reason: Ankle injury - Major; Ankle pain-swelling; Fall; fall/ ankle deformity Speciality: Acuity: Enc Type: Observation Med Service: Medical Arrival: 12/21/2024 09:32:35 Discharge: Dispo Type: Address: [address] [place] [phone] Provider Notes: Diagnosis: 1:Fracture dislocation of ankle [...] Address: When: MARIS PUGH [address] [place] [phone] Business (1) 12/29/2024 11:00 AM With: Address: When: [place] [address] Business (1) 01/04/2025 11:00 AM Patient Education Information: Holman - Ankle Fracture Post Op (Custom) Normal [facility] Inpatient Patient Summaryon 12-22-2024 Inpatient Patient Summary Inpatient Patient Summary [address] [id number] Patient Discharge Instructions PERSON INFORMATION Name: MARILY CLEMONS Date of : 1960 Current Date: 12/22/2024 15:57:03 PHYSICIANS Admitting Physician: Nida RODRIGUEZ, Tony Bragg Primary Care Physician: MARIS PUGH CNP PCP Phone Number: [phone] Comment: Discharge Diagnosis: 1:Fracture dislocation of ankle [...] With: Address: When: MARIS PUGH [address] [place] [phone] Business (1) 12/29/2024 11:00 AM With: Address: When: [place] [address] Business (1) 01/04/2025 11:00 AM In the [...] STAY New Medications [id number] [address] [place] [place] [id number], [phone] aspirin (aspirin 81 mg Oral EC Tab) [...] Pharmacy Information: Comme (more content not included)... [facility] Interdisciplinary Note - John e Manageron 12-22-2024 Interdisciplinary Note - Attorney Lawyer Interdisciplinary Note - Attorney Lawyer CRM to room 315 Patient is awake, alert and oriented Patient is from with her spouse. She [place] have a ride [place]. Patient verified her PCP, DME and insurance. Patient came in with Fall and ankle fx. She had OR on 12/21. She is assigned to Trauma team. She needs to work with therapy again for stairs. She has recommendations for FWW, BSC and SC. She has SC at home. CRM sent other DME needs order to [facility]. Patient declines any needs for care. Patient was provided CRM contact , white board updated. CRM following [facility] received DME order still awaiting approval Per PT they cleared her for DC FWW was delivered to room She does not want to self pay for BSC [facility] Comment on above: Result Comment: Elec tronically Signed By: Virginie Klein\.br\Date and Time Signed: 12/22/24 15:13 EST Interdisciplinary Note - Mauro n 12-22-2024 Interdisciplinary Note - OT Interdisciplinary Note - OT OT [facility] six clicks score 21/24 = NO further inpatient OT needs. Patient is Ind Mod Ind/S w/ basic adls and transfers after set up, with FWW. Recommend bsc and shower chair for home use for fall prevention and energy conservation. Pt verbalizes an understanding. DC inpatient Ot services. Normal [facility] Interdisciplinary Note - OT Interdisciplinary Note - OT OT [facility] six clicks score 24 = SNF. Patient is Dep w/ bathing/dressing/toile ting at this time and requires mod A w/ feeding/grooming. Pt is confused, has difficulty staying alert, has problems following commands, and is weak. INpatient OT services to follow daily to progress as medical status improves. Normal [facility] Comment on above: Other Comment: wrong chart Lyteson 12-22-2024 Anion gap [Moles/Vol] 15 mmol/L Normal 6-16 [facility] Comment on above: Performed By: #### 2 [id number] #### [facility] [address] [place] [address] Chloride [Moles/Vol] 104 mmol/L Normal 101-111 [facility] Comment on above: Performed By: #### 2 [id number] #### [facility] [address] [place] [address] CO2 [Moles/Vol] 21 mmol/L Normal 21-31 [place] Comment on above: Performed By: #### 2 [id number] #### [facility] [address] [place] [address] Potassium [Moles/Vol] 4.6 mmol/L Normal 3.5-5.3 [facility] Comment on above: Performed By: #### 2 [id number] #### [facility] [address] [place] [address] Sodium [Moles/Vol] 135 mmol/L Normal 135-145 [facility] Comment on above: Performed By: #### 2 [id number] #### [facility] [address] [place] [address] Magnesiumon 12-22-2024 Magnesium [Mass/Vol] 1.6 mg/dL Normal 1.3-2.4 [facility] Comment on above: Performed By: #### 2 [id number] #### [facility] [address] [place] [address] PT & PTTon 12-22-2024 aPTT Coag (PPP) [Time] 29.5 second(s) Normal 25.1-36.5 [facility] Comment on above: Result Comment: Para meter [...] the same coagulation reagent and instrumentation as [facility]. Currently there are no coagulation studies available worldwide for children to 14 days, and no normal ranges. Heparin therapeutic range (represented by Anti-Factor Xa activity of 0.2 - 0.4 U/mL) corresponds to PTT of 56.6 - 109.0 sec. Performed By: #### 1 [id number] #### [facility] [address] [place] [address] INR Coag (PPP) [Relative time] 0.95 {INR} Invalid Interpretation Code [facility] Comment on above: Result Comment: INR results are specifically intended to assess patients stabilized on long-term Anticoagulation therapy suggested INR???s ???Less Intensive Anticoagulation??? 2.0 ??? 3.0 Conventional Range 3.0 ??? 4.5 Performed By: #### 1 [id number] #### [facility] [address] [place] [address] PT Coag (PPP) [Time] 10.6 second(s) Normal 9.4-12.5 [facility] Comment on above: Result Comment: 15 d [...] the same coagulation reagent and instrumentation as [facility]. Currently there are no coagulation studies available worldwide for children to 14 days, and no normal ranges. Performed By: #### 1 [id number] #### [facility] [address] [place] [address] Phosphoruson 12-22-2024 Phosphate [Mass/Vol] 3.5 mg/dL Normal 1.9-4.6 [facility] Comment on above: Performed By: #### 2 [id number] #### [facility] [address] [place] [address] XR ANKLE 2 VIEWS LEFTon 12-04 Exam [...] Chinchilla DO Transcribed by: JAKE Technologist: ANDI [facility] Radiology, Radiologist, - 12/22/2024 Exam Date/Time: 12/21/2024 [...] Chinchilla DO Transcribed by: JAKE Technologist: ANDI [facility] [employer] XR ANKLE 2 VIEWS LEFTOrdered By: Radiologist Radiology on 12-22-2024 [employer] Work Phone: XR Ankle 2 Views Lefton [...] DO Transcribed by: JAKE Technologist: MKK Normal [facility] eGFRon 12-22-2024 eGFR 55 mL/min/1.73 m2 Low >=59 [facility] Comment on above: Performed By: #### 1 [id number] #### [facility] [address] [place] [address] CBC w/ Auto Diffon 5 Basophils/100 WBC (Bld) 0.5 % Normal 0.0-2.0 [facility] Comment on above: Performed By: #### 2 [id number] #### [facility] [address] [place] [address] Basophils/Leukocytes Auto (Bld) [Pure # fraction] 0.1 E9/L Normal 0.0-0.2 [facility] Comment on above: Performed By: #### 2 [id number] #### [facility] [address] [place] [address] Eosinophils (Bld) [#/Vol] 0.2 E9/L Normal 0.0-0.5 [facility] Comment on above: Performed By: #### 2 [id number] #### [facility] [address] [place] [address] Eosinophils/100 WBC (Bld) 1.3 % Normal 0.0-8.0 [facility] Comment on above: Performed By: #### 2 [id number] #### [facility] [address] [place] [address] Erythrocyte distribution width (RBC) [Ratio] 13.2 % Normal 10.9-14.2 [facility] Comment on above: Performed By: #### 2 [id number] #### [facility] [address] [place] [address] Hematocrit (Bld) [Volume fraction] 42.5 % Normal 34.0-46.0 [facility] Comment on above: Performed By: #### 2 [id number] #### [facility] [address] [place] [address] Hemoglobin (Bld) [Mass/Vol] 15.2 g/dL Normal 12.0-16.0 [facility] Comment on above: Performed By: #### 2 [id number] #### [facility] [address] [place] [address] Lymphocytes (Bld) [#/Vol] 1.8 E9/L Normal 1.0-4.0 [facility] Comment on above: Performed By: #### 2 [id number] #### [facility] [address] [place] [address] Lymphocytes/100 WBC (Bld) 15.0 % Normal 14.0-50.0 [facility] Comment on above: Performed By: #### 2 [id number] #### [facility] [address] [place] [address] MCH (RBC) [Entitic mass] 37.2 pg High 27.0-34.0 [facility] Comment on above: Performed By: #### 2 [id number] #### [facility] [address] [place] [address] MCHC (RBC) [Mass/Vol] 35.7 g/dL Normal 31.4-36.0 [facility] Comment on above: Performed By: #### 2 [id number] #### [facility] [address] [place] [address] MCV (RBC) [Entitic vol] 104.1 fL High 80.0-100.0 [facility] Comment on above: Performed By: #### 2 [id number] #### [facility] [address] [place] [address] Monocytes (Bld) [#/Vol] 0.7 E9/L Normal 0.2-1.0 [facility] Comment on above: Performed By: #### 2 335706 #### [facility] [address] [place] [address] Neutrophils (Bld) [#/Vol] 9.6 E9/L High 2.0-7.5 [facility] Comment on above: Performed By: #### 2 [id number] #### [facility] [address] [place] [address] Neutrophils/100 WBC (Bld) 77.8 % High 36.0-75.0 [facility] Comment on above: Performed By: #### 2 [id number] #### [facility] [address] [place] [address] Platelet 307.0 E9/L Normal 150.0-500.0 [facility] Comment on above: Performed By: #### 2 [id number] #### [facility] [address] [place] [address] Platelet mean volume (Bld) [Entitic vol] 8.3 fL Normal 6.4-10.8 [facility] Comment on above: Performed By: #### 2 [id number] #### [facility] [address] [place] [address] RBC (Bld) [#/Vol] 4.1 E12/L Low 4.3-5.9 [facility] Comment on above: Performed By: #### 2 [id number] #### [facility] [address] [place] [address] WBC corrected for nucl RBC Auto (Bld) [#/Vol] 12.3 E9/L High 4.0-11.0 [facility] Comment on above: Performed By: #### 2 [id number] #### [facility] [address] [place] [address] CHEMISTRYOrdered By: SYSTEM SYSTEM on 12-21-2024 Albumin [...] 12-21-2024 Albumin [Mass/Vol] 4.2 g/dL Normal 3.3-5.0 [facility] Comment on above: Performed By: #### 2 [id number] #### [facility] [address] [place] [address] Albumin/Globulin (S) [Mass conc ratio] 1.3 Normal 1.1-2.2 [facility] Comment on above: Performed By: #### 2 [id number] #### [facility] [address] [place] [address] ALP [Catalytic activity/Vol] 169 Int._Unit/L High 21-98 [facility] Comment on above: Performed By: #### 2 [id number] #### [facility] [address] [place] [address] ALT No additional P-5'-P [Catalytic activity/Vol] 24 Int._Unit/L Normal 6-46 [facility] Comment on above: Performed By: #### 2 [id number] #### [facility] [address] [place] [address] Anion gap [Moles/Vol] 14 mmol/L Normal 6-16 [facility] Comment on above: Performed By: #### 2 845694 #### [facility] [address] [place] [address] AST [Catalytic activity/Vol] 28 Int._Unit/L Normal 5-43 [facility] Comment on above: Performed By: #### 2 [id number] #### [facility] [address] [place] [address] Bilirubin [Mass/Vol] 0.7 mg/dL Normal 0.0-1.1 [facility] Comment on above: Performed By: #### 2 565759 #### [facility] [address] [place] [address] Calcium [Mass/Vol] 9.9 mg/dL Normal 8.9-11.1 [facility] Comment on above: Performed By: #### 2 789094 #### [facility] [address] [place] [address] Chloride [Moles/Vol] 103 mmol/L Normal 101-111 [facility] Comment on above: Performed By: #### 2 [id number] #### [facility] [address] [place] [address] CO2 [Moles/Vol] 26 mmol/L Normal 21-31 [place] Comment on above: Performed By: #### 2 [id number] #### [facility] [address] [place] [address] Creatinine [Mass/Vol] 0.9 mg/dL Normal 0.5-1.3 [facility] Comment on above: Performed By: #### 2 071415 #### [facility] [address] [place] [address] Globulin (S) [Mass/Vol] 3.2 g/dL Normal 1.4-4.0 [facility] Comment on above: Performed By: #### 2 [id number] #### [facility] [address] [place] [address] Glucose [Mass/Vol] 106 mg/dL Normal 55-199 [facility] Comment on above: Performed By: #### 2 [id number] #### [facility] [address] [place] [address] Potassium [Moles/Vol] 3.8 mmol/L Normal 3.5-5.3 [facility] Comment on above: Performed By: #### 2 [id number] #### [facility] [address] [place] [address] Protein [Mass/Vol] 7.4 g/dL Normal 6.0-7.8 [facility] Comment on above: Performed By: #### 2 892979 #### [facility] [address] [place] [address] Sodium [Moles/Vol] 139 mmol/L Normal 135-145 [facility] Comment on above: Performed By: #### 2 773529 #### [facility] [address] [place] [address] Urea nitrogen [Mass/Vol] 10 mg/dL Normal 5-21 [facility] Comment on above: Performed By: #### 2 015353 #### [facility] [address] [place] [address] Urea nitrogen/Creatinine [Mass ratio] 11 No Units Normal 10-20 [facility] Comment on above: Performed By: #### 2 [id number] #### [facility] [address] [place] [address] COAGULATIONOrdered By: Hudson Judge on 12-21-2024 aPTT Coag (PPP) [Time] 33.3 s Normal 25.1 - 36.5 second(s) [facility] Comment on above: Interpretive Data: [...] the same coagulation reagent and instrumentation as [facility]. Currently there are no coagulation studies available worldwide for children to 14 days, and no normal ranges. Heparin therapeutic range (represented by Anti-Factor Xa activity of 0.2 - 0.4 U/mL) corresponds to PTT of 56.6 - 109.0 sec. INR Coag (PPP) [Relative time] 0.90 {INR} Invalid Interpretation Code [facility] Comment on above: Interpretive Data: I NR results are specifically intended to assess patients stabilized on long-term Anticoagulation therapy suggested INR s Less Intensive Anticoagulation 2.0 3.0 Conventional Range 3.0 4.5 PT Coag (PPP) [Time] 10.1 s Normal 9.4 - 1 2.5 second(s) [facility] Comment on above: Interpretive Data: [...] the same coagulation reagent and instrumentation as [facility]. Currently there are no coagulation studies available [...] M.D. Transcribed by: JAKE Technologist: YUDITH Mendoza [facility] ED Note-Physicianon 12-21-19 ED Note-Physician ED Note-Physician [...] applied by Dr. Bailey and the physician research lab assistant using orthoglass. The patient tolerated this [...] Diagnostic Results No qualifying data available. Normal [facility] Comment on above: Result Comment: Elec tronically [...] 12-21-2024 Inpatient Clinical Summary Inpatient Clinical Summary [address] [address] Clinical Summary Person Information: Name: MARILY CLEMONS Age: 64 Years : 1960 Sex: Female PCP: MARIS PUGH CNP Marital Status: Phone: [phone] Race: White Ethnicity: Non- or Language: Belgian Visit Id: Visit Reason: Ankle injury - Major; Ankle pain-swelling; Fall; fall/ ankle deformity Speciality: Acuity: Enc Type: Observation Med Service: Medical Arrival: 12/21/2024 09:32:35 Discharge: Dispo Type: Address: [address] [place] [id number] Provider Notes: Diagnosis: Fracture dislocation of ankle [...] up: With: Address: When: Garret Tarango [address] [place] [address] [facility] (1) Within 2 weeks Comments: Call for followup appointment With: Address: When: MARIS PUGH [address] [facility] [place] [address] [phone] Business (1) Patient Education Information: Holman - Ankle Fracture Post Op (Custom) Normal [facility] Inpatient Patient Summaryon 12-21-2024 Inpatient Patient Summary Inpatient Patient Summary [address] [address] Patient Discharge Instructions PERSON INFORMATION Name: CLEMONS, MARILY Epps Date of : 1960 Current Date: 12/21/2024 21:14:49 PHYSICIANS Admitting Physician: Nida RODRIGUEZ, Tony Bragg Primary Care Physician: MARIS PUGH CNP PCP Phone Number: [phone] Comment: Discharge Diagnosis: Fracture dislocation of ankle [...] Follow up: With: Address: When: Garret Tarango [address] [place] [address] Business (1) Within 2 weeks Comments: Call for followup appointment With: Address: When: MARIS PUGH [address] [place], [place] [address] [place] [address] [phone] Business (1) In the event that this [...] Pharmacy Information: Comment: PATIENT EDUCATION INFORMATION Instructions: [place], [place] [facility] DISCHARGE INSTRUCTIONS: ANKLE FRACTURE [...] needed, after (more content not included)... Normal [facility] Main OR Intraoperative Recor don 12-21-2024 Main OR Intraoperative Record Main OR Intraoperative Record IntraOp Document Type FT Summary Primary Physician: Garret Tarango DO Finalized Date/Time: 12/21/24 20:49:45 Pt. Name: MARILY CLEMONS/Sex: 1960 Female Med Rec #: [id number] Physician: Nida RODRIGUEZ, Tony Bragg Financial #: [id number] Pt. Type: O Room/Bed: N315/01 Admit/Disch: 12/21/24 [...] Role Performed Surgeon - Primary Anesthesiologist of MUSIC COPYIST/SA Record Time In 12/21/24 18:38:00 12/21/24 18:31:00 12/21/24 18:31:00 Time Out 12/21/24 20:39:00 12/21/24 20:39:00 12/21/24 20:39:00 Procedure ANKLE FRACTURE ANKLE FRACTURE ANKLE FRACTURE ORIF(Left) ORIF(Left) ORIF(Left) Comments Last Modified By: Reyes Parker Terry T Sweene, Terry T 12/21/24 20:45:15 12/21/24 20:45:15 12/21/24 20:45:15 Entry 4 Entry 5 Entry 6 Case Attendee Reyes Parker, Thalia Steele Role Performed Homeopathic Doctor - Primary Scrub - Primary Customer Agent Time In 12/21/24 18:31:00 12/21/24 18:31:00 12/21/24 [...] and tissue Entry 1 Skin Integrity Intact, [place], Warm, & Skin Abnormality Yes Dry Abnormality [...] precautions for (more content not included)... Normal [facility] Main OR PACU I Recordon 12-04 Main OR PACU I Record Main OR PACU I Rec ord PACU Phase I Document Type FT Summary Primary Physician: Garret Tarango DO Finalized Date/Time: 12/21/24 21:49:55 Pt. Name: MARILY CLEMONS./Sex: 1960 Female Med Rec #: [id number] Physician: Nida RODRIGUEZ, Tony Bragg Financial #: [id number] Pt. Type: O Room/Bed: [place] [address] Admit/Disch: 12/21/24 09:32:35 - Institution: Case Times [...] By: Jennifer Sandra RN 12/21/24 21:49 Normal [facility] Main OR Preoperative Recordo n 12-21-2024 Main OR Preoperative Record Main OR Preoperative Record PreOp Document Type FT Summary Primary Physician: Garret Tarango DO Finalized Date/Time: 12/21/24 19:13:26 Pt. Name: MARILY CLEMONS/Sex: 1960 Female Med Rec #: [id number] Physician: Nida RODRIGUEZ, Tony Bragg Financial #: [id number] Pt. Type: O Room/Bed: N315/01 Admit/Disch: 12/21/24 [...] Signed By: Reyes Parker 12/21/24 19:13 Normal [facility] Operative Reporton Operative Report Operative Report Patient: MARILY CLEMONS Age: 64 years Sex: Female : 1960 Associated Diagnoses: None Author: Garret Tarango DO DATE OF SURGERY: 12/21/2024 SURGEON: Garret Tarango D.O. SERVICE COORDINATOR: Renay Alonzo CFA PREOPERATIVE DIAGNOSIS: Trimalleolar fracture/dislocation, [...] and administered general anesthetic on her hospital [facility]. She was transferred to the operating room [...] the f (more content not included)... Normal [facility] Comment on above: Result Comment: Elec tronically [...] All Problems Tobacco use / SNOMED CT 5355490404 / Confirmed HTN (hypertension) / SNOMED CT 9840659177 / Confirmed Hypothyroidism / SNOMED CT 69348919 / Confirmed High cholesterol / SNOMED CT 57124415 / Confirmed Smoker / SNOMED CT 384883502 / Confirmed Added secondary to documentation in [...] patient???s medical record, and coordinating care. Normal [facility] Comment on above: Result Comment: Elec tronically Signed By: Garret Tarango DO\.br\Date and Time Signed: 12/21/24 18:23 EST PT & PTTon 12-21-2024 aPTT Coag (PPP) [Time] 33.3 second(s) Normal 25.1-36.5 [facility] Comment on above: Order Comment: pt us [...] the same coagulation reagent and instrumentation as [facility]. Currently there are no coagulation studies available worldwide for children to 14 days, and no normal ranges. Heparin therapeutic range (represented by Anti-Factor Xa activity of 0.2 - 0.4 U/mL) corresponds to PTT of 56.6 - 109.0 sec. Performed By: #### 1 [id number] #### [facility] [address] [place] [address] INR Coag (PPP) [Relative time] 0.90 {INR} Invalid Interpretation Code [facility] Comment on above: Order Comment: pt us ing restroom 1138 per jacee Result Comment: INR results are specifically intended to assess patients stabilized on long-term Anticoagulation therapy suggested INR???s ???Less Intensive Anticoagulation??? 2.0 ??? 3.0 Conventional Range 3.0 ??? 4.5 Performed By: #### 1 [id number] #### [facility] [address] [place] [address] PT Coag (PPP) [Time] 10.1 second(s) Normal 9.4-12.5 [facility] Comment on above: Order Comment: pt us [...] the same coagulation reagent and instrumentation as [facility]. Currently there are no coagulation studies available worldwide for children to 14 days, and no normal ranges. Performed By: #### 1 [id number] #### [facility] [address] [place] [address] Pre-Arrival Noteon 5 Pre-Arrival Note Pre-Arrival Note Pre-Arrival Summary Name: kody Current Date: 12/21/2024 09:33:32 EST Gender: Female Date of : Age: 61 Pre-Arrival Type: EMS ETA: 12/21/2024 09:58:00 EST Primary Care Physician: Presenting Problem: fall/ankle deformity Pre-Arrival User: Jacquelyn Pineda RN Referring Source: Location: [place] Completion Date/Time: 12/21/2024 09:28:00 [facility] Emergency Department Pre-Hospital Report Form Vital Signs: Pre-Hospital Report: fall, +thinner. left ankle deformity. 22 L forearm, 75mcg fent, 145/94, 113, 6 98% Treatment in Route: Response to Treatment: Misc. Issues: Normal [facility] XR ANKLE 2 VIEWS LEFTon 12-04 Radiology Study observation (narrative) [facility] XR Ankle 3+ Views Lefton XR Ankle [...] M.D. Transcribed by: JAKE Technologist: SAMUEL Mendoza [facility] XR Chest Single Viewon 12-21 XR Chest [...] DO Transcribed by: JAKE Technologist: SAMUEL Mendoza [facility] eGFRon 12-21-2024 eGFR 70 mL/min/1.73 m2 Normal >=59 [facility] Comment on above: Performed By: #### 1 [id number] #### [facility] [address] [place] [address] MM screening mammo BI w/CADo n 05-08-2021 MM screening mammo BI w/CAD [facility] Main [place] [address] [place] [address] Mammography Report Signed Patient: Marily Clemons MR#: [id number] : 1960 Acct:[id number] Age/Sex: 60 / F ADM Date: 05/08/21 Loc: [place] Room: Type: [facility] Attending Dr: Shannan Schwartz (Clinic) , [facility] Ordering Provider: Shannan Schwartz DO Date [...] Christina Morales M.D.05/08/2021 1:21 PM Dictation Location: [facility] Transcribed By: [facility] 05/08/21 1321 Dictated By: Christina Morales MD 05/08/21 1317 Signed By: 05/08/21 1321 [facility] Vital Signs Date Time Vital Sign Value Performing Clinician Facility 06-02-2025 09:50-0400 Body height 160 cm Garret Tarango DO Work Phone: [facility] 06-02-2025 09:50-0400 Body mass index (BMI) [Ratio] 28.34 kg/m2 Garret Tarango DO Work Phone: [facility] 06-02-2025 09:50-0400 Body weight 72.58 kg Garret Brown DO Work Phone: [facility] 03-31-2025 09:32-0400 Body height 160 cm Garret Brown DO Work Phone: [facility] 03-31-2025 09:32-0400 Body mass index (BMI) [Ratio] 28.34 kg/m2 Garret Brown DO Work Phone: [facility] 03-31-2025 09:32-0400 Body weight 72.58 kg Garret Brown DO Work Phone: [facility] 02-28-2025 10:37-0400 Body height 160 cm Garret Brown DO Work Phone: [facility] 02-28-2025 10:37-0400 Body mass index (BMI) [Ratio] 28.34 kg/m2 Garret Brown DO Work Phone: [facility] 02-28-2025 10:37-0400 Body weight 72.58 kg Garret Brown DO Work Phone: [facility] 01-31-2025 11:08-0400 Body height 160 cm Garret Brown DO Work Phone: [facility] 01-31-2025 11:08-0400 Body mass index (BMI) [Ratio] 28.34 kg/m2 Garret Brown DO Work Phone: [facility] 01-31-2025 11:08-0400 Body weight 72.58 kg Garret Brown DO Work Phone: [facility] 12-22-2024 16:27-0500 Heart rate 85 /min Tony Alva [facility] 12-22-2024 16:27-0500 SaO2% (BldA) [Mass fraction] 95 % Tony Alva [facility] 12-22-2024 16:27-0500 Diastolic blood pressure 79 mm[Hg] Tony Nida [facility] 12-22-2024 16:27-0500 Mean blood pressure 98 mm[Hg] Tony Szynkowski [facility] 12-22-2024 16:27-0500 Systolic blood pressure 138 mm[Hg] Tony Szynkowski [facility] 12-22-2024 16:27-0500 Body temperature 97.88 [degF] Tony Szynkowski [facility] 12-22-2024 16:21-0500 Hourly Rounding Tony Szynkowski [facility] 12-22-2024 16:21-0500 Promise to Return Tony Szynkowski [facility] 12-22-2024 15:00-0500 Hourly Rounding Tony Szynkowski [facility] 12-22-2024 15:00-0500 Promise to Return Tony Szynkowski [facility] 12-22-2024 14:00-0500 Hourly Rounding Tony Szynkowski [facility] 12-22-2024 14:00-0500 Promise to Return Tony Szynkowski [facility] 12-22-2024 11:03-0500 Heart rate 96 /min Tony Szynkowski [facility] 12-22-2024 11:03-0500 SaO2% (BldA) [Mass fraction] 97 % Tony Szynkowski [facility] 12-22-2024 11:02-0500 Body temperature 97.88 [degF] Tony Szynkowski [facility] 12-22-2024 11:02-0500 Diastolic blood pressure 90 mm[Hg] Tony Szynkowski [facility] 12-22-2024 11:02-0500 Mean blood pressure 110 mm[Hg] Otny Szynkowski [facility] 12-22-2024 11:02-0500 Systolic blood pressure 151 mm[Hg] Tony Szynkowski [facility] 12-22-2024 07:00-0500 Body temperature 98.06 [degF] Tony Szynkowski [facility] 12-22-2024 07:00-0500 Diastolic blood pressure 62 mm[Hg] Tony Szynkowski [facility] 12-22-2024 07:00-0500 Heart rate 86 /min Tony Szynkowski [facility] 12-22-2024 07:00-0500 Systolic blood pressure 107 mm[Hg] Tony Szynkowski [facility] 12-22-2024 05:50-0500 Blood Pressure Location Tony Szynkowski [facility] 12-22-2024 05:50-0500 Body temperature 98.6 [degF] Tony Szynkowski [facility] 12-22-2024 05:50-0500 Mean blood pressure 83 mm[Hg] Tony Szynkowski [facility] 12-22-2024 05:50-0500 Respiratory rate 18 /min Tony Szynkowski [facility] 12-22-2024 00:00-0500 Body temperature 98.42 [degF] Tony Szynkowski [facility] 12-22-2024 00:00-0500 Mean blood pressure 80 mm[Hg] Tony Szynkowski [facility] 12-22-2024 00:00-0500 Respiratory rate 18 /min Tony Szynkowski [facility] 12-21-2024 21:35-0500 Body temperature 97.88 [degF] Tony Szynkowski [facility] 12-21-2024 21:34-0500 Mean blood pressure 99 mm[Hg] Tony Szynkowski [facility] 12-21-2024 21:30-0500 Blood Pressure Location Tony Szynkowski [facility] 12-21-2024 21:30-0500 Heart rate 90 /min Tony Szynkowski [facility] 12-21-2024 21:15-0500 Body temperature 97.7 [degF] Tony Szynkowski [facility] 12-21-2024 21:15-0500 Mean blood pressure 103 mm[Hg] Tony Szynkowski [facility] 12-21-2024 21:15-0500 Respiratory rate 20 /min Tony Szynkowski [facility] 12-21-2024 21:05-0500 Respiratory rate 15 /min Tony Szynkowski [facility] 12-21-2024 20:55-0500 Respiratory rate 19 /min Tony Szynkowski [facility] 12-21-2024 20:40-0500 Body temperature 97.52 [degF] Tony Szynkowski [facility] 12-21-2024 20:35-0500 Respiratory rate 9 /min Tony Alva [facility] 12-21-2024 09:37-0500 Heart rate 108 /min Tonydwight Alva [facility] Encounters Encounter Date Encounter Type Care Provider Facility Start: 06-02-2025 End: 06-02-2025 Patient encounter procedure Garret Tarango DO Work Phone: [facility] Comment on above: Left ankle pain, [...] Start: 12-21-2024 End: 12-22-2024 ambulatory Tony Alva Facility:[facility] [facility] Start: 12-21-2024 Emergency department patient visit Dar Leo Facility:[facility] Start: 12-21-2024 End: 12-22-2024 Observation Tony Alva [facility] Start: 03-14-2018 End: 03-14-2018 Patient encounter procedure [...] Garret Tarango DO Work Phone: Start: 12-22-2024 [facility] CBC W/ AUTO DIFF J pamela Tarango DO Work Phone: Start: 12-22-2024 Open reduction of fracture of ankle with internal fixation Tony Nida Start: 12-21-2024 XR ANKLE 2 VIEWS LEFT J pamela Susan Tarango DO Work Phone: Plan of Treatment Date Care Activity Detail Author Start: 07-04-2025 Influenza vaccination Influenza Vacc ine (#1) [facility] Start: 06-02-2025 End: 06-02-2025 Patient encounter procedure 06/02/2025 10:00 AM EDT Office Visit [facility] [address] [place] [phone] Garret Tarango DO [address] [place] [address] [facility] Start: 03-31-2025 End: 03-31-2025 Patient encounter procedure 03/31/2025 9:45 AM EDT Office Visit [facility] [address] [place] [address] Garret Tarango DO [address] [place] [address] [facility] Start: 01-04-2025 End: 01-04-2025 Patient encounter procedure 01/04/2025 11:15 AM EST Office Visit [facility] [address] [place] [phone] Garret Tarango DO [address] [place] [address] Arrived [facility] Comment on above: Arrived Start: 1998 Screening for malign ant neoplasm of breast Mammogram [facility] Start: 1960 Screening for malign ant neoplasm of colon [facility] Immunizations Immunization Date Immunization Notes Care Provider Fa roxy 09-11-2024 influenza virus vacc ine, unspecified formulation Garret Tarango DO Work Phone: [facility] Payers Date Payer Category Payer Medicare [id number] 2024 Medicare (Managed Care) 1.2. [id number] 2024 Unknown [id number] 2023 Medicare MEDICARE [id number] 1959 Unknown [id number] 1958 Unknown [id number] 2.840.1.397622.3.579.2. 593 1958 Unknown [id number] 2.840.1.273712.3.579.2. 72 1958 Unknown [id number] 2.16.840.1.298948.3.579.2. 727 1958 Unknown [id number] 2.16.840.1.358851.3.579.2. 727 1958 Unknown [id number] 2.16.840.1.527205.3.579.2. 727 1958 Unknown [id number] 2.16.840.1.582783.3.579.2. 1259 1958 Unknown [id number] 2.16.840.1.460318.3.579.2. 1258 1958 Unknown [id number] 2.16.840.1.333384.3.579.2. 1258 1958 Unknown [id number] 2.16.840.1.823155.3.579.2. 1258 1958 Unknown [id number] 2.16.840.1.536652.3.579.2. 1258 1958 Unknown [id number] 2.16.840.1.682198.3.579.2. 1258 1958 Unknown [id number] 2.16.840.1.901930.3.579.2. 1258 1958 Unknown [id number] 2.16.840.1.584584.3.579.2. 1258 1958 Unknown [id number] 2.16.840.1.646659.3.579.2. 1258 1958 Unknown [id number] 2.16.840.1.084725.3.579.2. 9 Social History Date Type Detail Facility Tobacco smoking stat [facility] Tobacco smoking consumption unknown [facility] Start: 1960 Sex assigned at Not on file [facility] Start: 01-31-2025 End: 06-02-2025 Gender identity Not on file [facility] Start: 12-21-2024 Tobacco smoking status Heavy t obacco smoker (finding) [facility] Start: 01-04-2025 [facility] History of [...] Assessment Result Facility 12-21-2024 Functional Status No [facility] 12-21-2024 Functional Status [facility] Clinical Notes 12-21-2024 to 06-02-2025 Garret Susan [...] note was created using voice recognition through [employer]. documented in this encounter [facility] 03-31-2025 History of Present illness Narrative Images from the original note were not included. @[email or web address] Marily [email or web address] Janki is a 64 y.o. [...] 24 hours atorvastatin (Lipitor) 80 MG tablet Lumi [place] 160-9-4.8 MCG/ACT aerosol INHALE 2 PUFFS TWICE [...] - XR ankle 3+ views left Garret Taragno D.O. Attestation This note was created using voice recognition through [employer]. documented in this encounter [facility] 02-28-2025 History of Present illness Narrative Images [...] note was created using voice recognition through [employer]. documented in this encounter [facility] 01-31-2025 History of Present illness Narrative Images [...] note was created using voice recognition through [employer]. documented in this encounter [facility] 12-27-2024 Note History and Physical TRAUMA CONSULT / H&P Patient Name: MARILY CLEMONS Admission Date: 12/21/2024 09:32:35 -------- BASIC INJURY INFORMATION: Level of activation: Category 2 Trauma Mode of transport: [facility] Mechanism of injury: Fall HISTORY OF [...] (12/22/24) MCHC: 34.3 (12/22/24) MCV: 105.8 (12/22/24) Kay Absolute: 0.3 (12/22/24) Kay Auto: 3.5 (12/22/24) MPV: 8.5 (12/22/24) Neutro Absolute: 8.0 (12/22/24) Neutro Auto: 83.2 (12/22/24) Phosphorus: 3.5 (12/22/24) Platelet: 287.0 (12/22/24) POC Device SN: [id number] (12/22/24) POC User ID: [id number] (12/22/24) POC Username: POC Username (12/22/24) Potassium Lvl: 4.6 (12/22/24) PT: 10.6 (12/22/24) PTT: 29.5 (12/22/24) RBC: (more content not included)... [facility] Comment on above: Result Comment: Elec tronically [...] Ambulatory Surgery Unit, and To home ). [facility] Comment on above: Result Comment: Elec tronically Signed By: Rosalio Gaitan Jr., DO\.rupert\Date and Time Signed: 12/23/24 06:44 EST 12-22-2024 Note Patient Education - Text [place], [place] [facility] DISCHARGE INSTRUCTIONS: ANKLE FRACTURE [...] office evaluation. Garret Tarango, DO [facility] [address] [place] [address] Reviewed: 10-26 [facility] 12-22-2024 Note Interdisciplinary No te - PT [...] and axillary crutch to return home safely. [facility] 12-21-2024 Hospital Discharge instructions Patient Education 12/21/2024 21:14:49 Holman - Ankle Fracture Post Op (Custom) [place], [place] [facility] DISCHARGE INSTRUCTIONS: ANKLE FRACTURE [...] evaluation. Garret Tarango, DO [facility] [address] [place], [place] [address] Reviewed: 10-26 Follow Up Care 12/21/2024 09:33:31 With:MARIS PUGH Address: [address] [place] [address]- [phone] Business (1) When:12/29/2024 11:00:00 With:Garret Tarango Address: [address] [place] [address]- Business (1) When:01/04/2025 11:00:00 [facility] 12-21-2024 Note Patient Education - Text [place], [place] [facility] DISCHARGE INSTRUCTIONS: ANKLE FRACTURE [...] office evaluation. Garret Tarango DO [facility] [address] [place] [address] Reviewed: 10-26 [facility] 12-21-2024 Note Consultation Note Patient: MARILY CLEMONS [...] All Problems Tobacco use / SNOMED CT 9426505933 / Confirmed HTN (hypertension) / SNOMED CT 1935007497 / Confirmed Hypothyroidism / SNOMED CT 87356048 / Confirmed High cholesterol / SNOMED CT 18140145 / Confirmed Smoker / SNOMED CT 612480792 / Confirmed Added secondary to documentation in [...] is tenting t (more content not included)... [facility] Comment on above: Result Comment: Elec tronically [...] list: All Problems Smoker / SNOMED CT 462336716 / Confirmed Added secondary to documentation in Social History. Tobacco use / SNOMED CT 0242440196 / Confirmed Histories Past Medical History: No [...] 115 mmHg SpO2 (more content not included)... [facility] Comment on above: Result Comment: Elec tronically [...] All Problems Tobacco use / SNOMED CT 6840338161 / Confirmed HTN (hypertension) / SNOMED CT 8608950199 / Confirmed Hypothyroidism / SNOMED CT 55111849 / Confirmed High cholesterol / SNOMED CT 41542511 / Confirmed Smoker / SNOMED CT 220652725 / Confirmed Added secondary to documentation in [...] 12/21/24 15:59:00 EST Sodium Chloride 0.9% IV Avnessa 1000 mL 1,000 mL: 1,000 mL, IV, [...] list: All Problems Smoker / SNOMED CT 799262689 / Confirmed Added secondary to documentation in Social History. Tobacco use / SNOMED CT 9767730070 / Confirmed Histories Past Medical History: No [...] 77.8 % HI Lymph Auto 15.0 % Kay Auto 5.4 % Eos Auto 1.3 % Basophil Auto 0.5 % Neutro Absolute 9.6 E9/L HI Lymph Absolute 1.8 E9/L Kay Absolute 0.7 E9/L Eos Absolute 0.2 E9/L [...] on December 21, 2024 13:19 EST Encounter info:[id number], Elie - Addy, Observation, 12/21/2024 - . ECG interpretation: SINUS TACHYCARDIA POSSIBLE LEFT ATRIAL ENLARGEMENT [-0.1mV P WAVE IN V1/V2] LEFT ANTERIOR FASCICULAR BLOCK [QRS AXIS <= -45, QR IN I, RS IN II] POSSIBLE ANTERIOR MYOCARDIAL INFARCTION [30 ms Q WAVE IN V3/V4, OR R < 0.2 mV IN V4], OF INDETERMINATE AGE . Plan [place] [employer]esthesi[employer] (ASA) physical status classification: . Anesthetic Preoperative Plan: Anesthesia General. Addendum by Rosalio Gaitan Jr., DO toro Vuong [facility] 2024 16:21 EST Class III Extracted from: Title:ED Note Author:Dar Bailey DO Date:12/04 06/27 Fracture dislocation of ankl e (S82.896C: Other fracture of unspecified lower leg, initial [...] 3+ Views Left XR Chest Single View [facility] Evaluation note* Diagnosis Left ankle pain, unspecified chronicity- Primary [facility] Left ankle pain, unspecified chronicity- [facility] Diagnosis Left ankle pain, unspecified chronicity- [facility] Narrative No data available for this section [facility] Progress note No data available for this section [facility] Summary Purpose Family History No Family History [...] and content) DATE CREATED AUTHOR 02/11/2020 [facility] DATE CREATED AUTHOR AUTHOR'S ORGANIZ ATION 12/25/2021 [facility] DATE CREATED AUTHOR AUTHOR'S ORGANIZ ATION 12/22/2024 [facility] DATE CREATED AUTHOR AUTHOR'S ORGANIZ ATION 12/23/2024 [facility] DATE CREATED AUTHOR AUTHOR'S ORGANIZ ATION 12/24/2024 [facility] DATE CREATED AUTHOR AUTHOR'S ORGANIZ ATION 12/28/2024 [facility] DATE CREATED AUTHOR AUTHOR'S ORGANIZ ATION 06/04/2025 [facility] EPIC Patient Care team informatio n (unrecognized section and content) Mill Set Up Relationship Specialty Start Date End Date Maris Pugh MD [address] [place] [address] Referring Physician Family Medicine 01/04/25 Mill Set Up Relationship Specialty Start Date End Date Maris Pugh MD [address] [place] [address] Referring Physician Family Medicine 01/04/25 Mill Set Up Relationship Specialty Start Date End Date Maris Pugh MD [address] [place] [address] Referring Physician Family Medicine 01/04/25 Reason for [...] BE BASED ON THE PRIMARY CLINICAL RECORDS. [facility]. provides no warranty or guarantee of the accuracy or completeness of information in this document.
[2025-08-11 08:50] LABS: Free T3 3.08 pg/mL (2.18-3.98); Thyroid Stimulating Hormone 0.013 uIU/mL (0.358-3.740)
== END 2025-08-11 08:14 | disposition home or self-care (01) ==
LOC: LAB 08:14
PROVIDERS: PCP Nurse Practitioner Family; Visit Provider Nurse Practitioner Family
DX: R94.6 Abnormal results of thyroid function studies (principal)
CPT/HCPCS: 36415; 84436; 84443; 84481